=== PATIENT | female | born 1970 | race Caucasian/White ===

== ENCOUNTER 2025-07-04 17:20 | Emergency (ER) | payer OTHER, SELFPAY ==
[2025-07-04] VITALS (20 sets, daily range): BP systolic 132–154; BP diastolic 70–86; PULSE 67–122; TEMP 36.8; O2SAT 97–98
--- NOTE | 2025-07-04 17:42 | ED_ITS ---
HPI HPI - General Adult General Chief complaint: Neuro Symptoms/Deficit Stated complaint: FEELS FAINT/ WANTS TO PASS OUT Time Seen by Provider: 07/04/25 17:23 Source: patient Mode of arrival: Wheelchair Limitations: no limitations History of Present Illness HPI narrative: 55-year-old female presents because she feels faint, like she might pass out, and this started last night. She states she has a history of pots disease and this usually responds to IV fluids. She would also like to have her magnesium and potassium and sodium checked. She does not complain of palpitations or fever or abdominal pain. Related Data Home Medications ?Medication ?Instructions ?Recorded ?Confirmed alendronate 70 mg tablet mg PO 07/04/25 atogepant 60 mg tablet (Qulipta) mg 07/04/25 baclofen 20 mg tablet mg 07/04/25 cetirizine 10 mg tablet (Allergy mg 07/04/25 Relief (cetirizine)) cholecalciferol (vitamin D3) 50 07/04/25 mcg (2,000 unit) tablet ciprofloxacin HCl 500 mg tablet mg 07/04/25 fluticasone propionate 50 intranasal 07/04/25 mcg/actuation nasal spray,suspension ibuprofen 800 mg tablet mg 07/04/25 levothyroxine 75 mcg tablet mcg 07/04/25 liothyronine 5 mcg tablet mcg 07/04/25 lisinopril 5 mg tablet mg 07/04/25 magnesium oxide 400 mg (241.3 mg mg 07/04/25 magnesium) tablet meclizine 25 mg tablet mg 07/04/25 methylphenidate HCl 20 mg biphasic mg PO 07/04/25 50-50 capsule,extended release montelukast 10 mg tablet mg 07/04/25 omeprazole 10 mg capsule,delayed mg 07/04/25 release ondansetron 4 mg disintegrating mg 07/04/25 tablet oxcarbazepine 600 mg tablet mg 07/04/25 potassium chloride 20 mEq meq PO 07/04/25 tablet,extended release rizatriptan 10 mg tablet mg 07/04/25 sodium chloride 1,000 mg soluble mg 07/04/25 tablet Review of Systems ROS Narrative A ten point review of systems is negative except as noted above. Exam Narrative Exam Narrative: Nurses note and vital signs reviewed and patient is not hypoxic. General: The patient appears well and in no apparent distress. Patient is resting comfortably on cart. Skin: Warm, dry, no pallor noted. There is no rash noted. Head: Normocephalic, atraumatic Eye: Normal conjunctiva, no drainage Ears, Nose, Mouth, and Throat: oral mucosa is moist. Nares patent. Cardiovascular: Regular Rate and Rhythm Respiratory: Patient is in no distress, no accessory muscle use, lungs are clear to auscultation, no wheezing, rales or rhonchi Back: non-tender GI: Soft and nontender Musculoskeletal: The patient has no evidence of calf tenderness, no pitting edema, symmetrical pulses noted bilaterally Neurological: A&O, normal speech Psychiatric: Cooperative Constitutional Vital Signs, click to edit/add: Last Vital Signs Temp 98.3 F 07/04/25 17:28 Pulse 101 H 07/04/25 17:28 Resp 18 07/04/25 17:28 BP 154/86 H 07/04/25 17:28 Pulse Ox 97 07/04/25 17:28 O2 Del Method Room Air 07/04/25 17:28 Course Vital Signs Vital signs: Vital Signs Temperature 98.3 F 07/04/25 17:28 Pulse Rate 101 H 07/04/25 17:28 Respiratory Rate 18 07/04/25 17:28 Blood Pressure 154/86 H 07/04/25 17:28 Pulse Oximetry 97 07/04/25 17:28 Oxygen Delivery Method Room Air 07/04/25 17:28 Temperature 98.3 F 07/04/25 17:28 Pulse Rate 101 H 07/04/25 17:28 Respiratory Rate 18 07/04/25 17:28 Blood Pressure 154/86 H 07/04/25 17:28 Pulse Oximetry 97 07/04/25 17:28 Oxygen Delivery Method Room Air 07/04/25 17:28 Medical Decision Making MDM Narrative Medical decision making narrative: IV fluids are ordered and the patient is signed out to Dr. Ridley at change of shift. Differential Diagnosis Differential Diagnosis: Hypovolemia, electrolyte imbalance, acute kidney injury Lab Data Lab results reviewed: Yes I reviewed the patient's lab results Labs: Lab Results 07/04/25 Range/Units 18:44 WBC 9.5 (4.0-11.0) 10^3/uL RBC 4.47 (4.20-5.40) 10^6/uL Hgb 14.6 (12.0-16.0) g/dL Hct 41.6 (36.0-48.0) % MCV 93.1 (81.0-99.0) fL MCH 32.7 (26.7-34.0) pg MCHC 35.1 (29.9-35.2) g/dL RDW 11.9 (11.0-15.0) % Plt Count 267 (150-450) 10^3/uL MPV 10.6 (9.5-13.5) fL Neut % (Auto) 56.9 (43.0-75.0) % Lymph % (Auto) 31.1 (20.5-60.0) % [place] % (Auto) 10.1 (1.7-12.0) % Eos % (Auto) 0.9 (0.9-7.0) % Baso % (Auto) 0.7 (0.2-2.0) % Neut # (Auto) 5.4 (1.4-6.5) 10^3/uL Lymph # (Auto) 3.0 (1.2-3.8) 10^3/uL [place] # (Auto) 1.0 H (0.3-0.8) 10^3/uL Eos # (Auto) 0.1 (0.0-0.7) 10^3/uL Baso # (Auto) 0.1 (0.0-0.1) 10^3/uL Abs Immat Gran (auto) 0.03 (0.00-0.03) 10^3/uL Imm/Tot Granulo (auto) 0.3 (0.0-0.5) % ECG Data Attestation: I personally reviewed and interpreted this ECG as follows: (EKG on my interpretation shows sinus rhythm with rate of 84 no acute change) Discharge Plan Discharge Patient Disposition: Still a Patient
--- NOTE | 2025-07-04 17:42 | ECG_ITS ---
[facility] Test Date: 2025-07-04 Pat Name: Tori Soriano Department: Room: - Gender: Female Social Media Specialist: : 1970 Requested By: 1030 Order Number: [id number] Reading MD: LAWSON RIGGS M.D. Measurements Intervals [place] Rate: 84 P: 71 SC: 120 QRS: 18 QRSD: 82 T: 76 QT: 358 QTc: 399 Interpretive Statements 1100 Sinus rhythm 2420 RSR (QR) in lead V1/V2, consistent with right ventricular conduction delay 3413 Cannot rule out septal myocardial infarction, probably old 9150 abnormal ECG Compared to ECG 01/06/2020 19:16:32 Myocardial infarct finding now present Electronically Signed On 07-04-2025 22:05:37 EDT by LAWSON RIGGS M.D.
--- NOTE | 2025-07-04 17:50 | PC.NURSE ---
Pt presents to ER via wheelchair brought back by her Pt states her chief complaint is weakness secondary to POTS and dysautonomia Pt talks in a flight of words with sentences that don't quite make sense and keeps jumping back to the idea that she is Gods biological granddaughter and the chosen one Pt states she keeps getting lightheaded when walking too much and has to take frequent breaks pt then states she was recently evaluated in [place] and she does not want to be evaluated for her mental health - only for the physical symptoms she is having Pt repeatedly states all her family says shes gone crazy and so did the doctors there Pt again begins to ramble about her previous life and asks her when the day was that she woke knowing she was the chosen one Doctor Delilah enters and patient explains her dysautonomia issues to him and is happy to hear we will be doing an IV and labwork and giving her some fluids After leaving the room patients meets this nurse in the hallway and states concern for her mental health He states he doesn't know what happened, she has no psych diagnosis He wants her to be evaluated and they have not been previously able to get help for her because she doesn't want to hurt herself or anyone else At this time patient bolts through the door in the hallway and states she would prefer any medical discussion be had with her because she knows more about herself and her medical issues than anyone else Pts again comes to the nurses station and states he wants the doctor to do something for her mental health Her pcp noted hallucinations in her chart one month ago per but no treatment or diagnosis digging has been done. This all relayed to Dr. Mazariegos
--- NOTE | 2025-07-04 18:16 | PC.NURSE ---
PT STATES IS GODS CHOSEN CHILD AND IS READY FOR THE AWAKENING . PT STATES SHES IS WITH TWINS WHICH IS IMMACULATE CONCEPTION BECAUSE SHE HAS HAD A HYSTERECTOMY. PT STATES NEED THE TV REMOTE SO SHE CAN WATCH THE NEWS AND FIGURE OUT WHAT NEEDS TO BE DONE YET AND TO SEE ALL OF HER CHILDREN . IT IS UNCLEAR AT THIS TIME WHY SHE IS IN THE HOSPITAL OR HER CHIEF COMPLAINT.
--- OUTSIDE RECORDS SUMMARY | 2025-07-04 18:19 | XMS_ITS | Encounter Summary ---
Author Organization [facility] Address [address] [place] [address] Care Team Providers Care Bed Worker Name Role Phone Albino Judd MD Primary Care Provider [phone] Albino Judd MD Primary Care Provider [phone] Marjorie Wiley RN Unavailable [phone] Albino Judd MD Unavailable Cristina Walter Unavailable Encounter Details Date Type Department Care Team (Late st Contact Info) Description 04/13/2024 Orders Only [facility] [address] [place] [address] Albino Judd MD [address] [place] [address] Essential hypertension, benign Social History Tobacco Use Types Packs/Day Years Used Date Smoking Tobacco: Every Day Alcohol Use Standard Drinks/Week Comments Yes 0 (1 standard drink = 0.6 oz pur e alcohol) Occasional alcohol Comments Unknown Sex and Gender Information Value Date Recorded Sex Assigned at Not on file Legal Sex Female 8:23 PM EDT Gender Identity Not on file Sexual Orientation Not on file documented as of this encounter Plan of Treatment Upcoming Encounters Date Type Department Care Team (Late st Contact Info) Description 07/10/2025 1:00 PM EDT Office Visit [facility] [address] [place], [place] [address] [address] Alice Reid PA [address] [place] [address] [place], [place] [id number] 07/31/2025 2:30 PM EDT Office Visit [facility] [address] [place] [address] Albino Judd MD [address] [place] [address] documented as of this encounter Visit Diagnoses Diagnosis Essential hypertension, benign Essential hypertension, benign documented in this encounter Care Teams Bed Worker Relationship Specialty Start Date End Date Albino Judd MD PCP - General Family Medicine 06/25/23 06/29/24 Albino Judd MD [address] [place] [address] PCP - General Family Medicine 06/30/24 Albino Judd MD [address] [place] [address] PCP - Medical [place] [employer] 08/29/24 11/28/99 Marjorie Wiley, LUCY [address] [place] [address] Registered Nurse Family Medicine 09/18/24 Cristina Walter PA [address] [place] [address] Physician Shipping Inspector Neurology 03/13/25 documented as of this encounter
--- OUTSIDE RECORDS SUMMARY | 2025-07-04 18:19 | XMS_ITS ---
Author Organization [facility] Address [address] [place] [address] Care Team Providers Care Rn Mental Health Name Role Phone Albino Judd MD Primary Care Provider [phone] Marjorie Wiley RN Unavailable [phone] Albino Judd MD Unavailable Cristina Walter Unavailable Chronic Care Management (CCM) Status:Enrolled (Active) Start date:09/18/2024 Enrollment date:09/18/2024 Enrollment reason:Identified as hospital admit Overview Please assess for Care Management needs. 09/18/24, 4:13 PM - Marjorie Wiley RN- Patient gives verbal consent to be enrolled in CCM Program and understands there could be a bill for this service. Pt risk score 5, ccm bill no, med mutual Case Team Name Relationship Phone Marjorie Wiley RN(Responsible Staff) Registered Nurse [phone] Continued Care and Services Coordination
--- OUTSIDE RECORDS SUMMARY | 2025-07-04 18:19 | XMS_ITS | Encounter Summary ---
Author Organization [facility] Address [facility] [place] [address] Care Team Providers Care Account Liaison Name Role Phone Albino Judd MD Primary Care Provider [phone] Source Comments In the event this information is protected by the Federal Confidentiality of Alcohol and Drug AbusePatient Records regulations: The Federal rules restrict any use of the information to criminally investigate or prosecute any alcohol or drug abuse patient.[facility] Encounter Details Date Type Department Care Team (Late st Contact Info) Description 08/07/2014 Abstract Urology [address] [place] [address] Irais Gonzalez, VENEER PRODUCTION MACHINE OPERATOR.DERMATOLOGY SALES REPRESENTATIVE [address] [place] [address] Social History Tobacco Use Types Packs/Day Years Used Date Smoking Tobacco: Every Day Cigarettes 1 30 Smokeless Tobacco: Never Alcohol Use Standard Drinks/Week Comments Yes 0 (1 standard drink = 0.6 oz pur e alcohol) rare Comments No Sex and Gender Information Value Date Recorded Sex Assigned at Not on file Legal Sex Female 10:00 AM EDT Gender Identity Not on file Sexual Orientation Not on file documented as of this encounter Functional Status * Are you deaf or do you have serious difficulty hearing? Answer Date of Assessment Author No 04/12/2014 10:22 AM Harper Roper RN * Are you blind or do you have serious difficulty seeing, even when wearing glasses? Answer Date of Assessment Author No 04/12/2014 10:22 AM Harper Roper RN * Do you have serious difficulty walking or climbing stairs? Answer Date of Assessment Author No 04/12/2014 10:22 AM Harper Roper RN * Do you have difficulty dressing or bathing? Answer Date of Assessment Author No 04/12/2014 10:22 AM Harper Roper RN * Because of a physical, mental, or emotional condition, do you have difficulty doing errands alone such as visiting a doctor's office or shopping? Answer Date of Assessment Author No 04/12/2014 10:22 AM Harper Roper RN documented as of this encounter Mental Status * Because of a physical, mental, or emotional condition, do you have serious difficulty concentrating, remembering, or making decisions? Answer Entry Date Author No 04/12/2014 10:22 AM Harper Roper RN documented in this encounter Plan of Treatment Not on file documented as of this encounter Visit Diagnoses Not on filedocumented in this encounter Care Teams Account Liaison Relationship Specialty Start Date End Date Albino Judd MD PCP - General Internal Medicine 09/27/13 documented as of this encounter
--- OUTSIDE RECORDS SUMMARY | 2025-07-04 18:19 | XMS_ITS | Encounter Summary ---
Author Organization [facility] Address [id number] [address] [place] [address] Care Team Providers Care Cost Estimator Name Role Phone Albino Judd MD Primary Care Provider [phone] Reason for Visit * Reason Onset Date Comments Referral/Hospital 03/25/2021 Encounter Details Date Type Department Care Team (Late st Contact Info) Description 03/25/2021 Telephone [facility] [address] [place] [address] Abimbola Mitchell Referral/Hospital Social History Tobacco Use Types Packs/Day Years Used Date Smoking Tobacco: Every Day Cigarettes Vaping/E-cigarettes Smokeless Tobacco: Never Comments:Currently uses E Ci garttes Alcohol Use Standard Drinks/Week Comments Not Currently 0 (1 standard drink = 0.6 oz pur e alcohol) rarely Childcare Answer Date Recorded Childcare Unknown 05/10/2019 Employment Answer Date Recorded Employment Unknown 05/10/2019 Purpose - Life Answer Date Recorded Purpose and direction in life Unknown Comments No Sex and Gender Information Value Date Recorded Sex Assigned at Not on file Legal Sex Female 11:29 AM EDT Gender Identity Female 06/26/2021 11:02 PM EDT Sexual Orientation Straight 06/26/2021 11 :02 PM EDT COVID-19 Exposure Response Date Recorded In the last month, have you been in contact with someone who was confirmed or suspected to have Coronavirus / COVID-19? No / Unsure 03/24/2021 3:27 PM EDT documented as of this encounter Miscellaneous Notes * Telephone Encounter - Abimbola Stephen - 03/25/2021 11:47 AM EDT Patient called to schedule appointment from referral per [facility] visit. Referral dx: dizziness. Impressions: Abnormal VNG. All positional, positioning and caloric subtests were within normal limits. Pursuit and OPK suggest oculomotor non labyrinthine involvement. ?Recommendations: 1) Follow up with Preethi PULIDO for further review and recommendations. 2) A consultation with neuro opthalmology and/or OT for oculo motor training may be beneficial. Please advise on scheduling with Dr. Ramos or different provider per dizziness dx. * Telephone Encounter - Eren Ramos MD - 03/25/2021 11:47 AM EDT [facility] - Dr. Szymanski or Dr. Jackson * Telephone Encounter - Abimbola Mitchell - 03/25/2021 11:47 AM EDT Transition Mgr Rn called patient to schedule with Dr. Szymanski or Dr. Jackson, patient states Preethi PULIDO, ENT specialist who works with Dr. Ag, insists the patient be seen by neuro-opthamology, per patient, Preethi states patient does not have a vestibular problem. Preethi PULIDO office notes are in Epic. Please advise. * Telephone Encounter - Eren Ramos MD - 03/25/2021 11:47 AM EDT Please schedule as routine with me. * Telephone Encounter - Abimbola Mitchell - 03/25/2021 11:47 AM EDT Patient scheduled 05/[address] Ramos. documented in this encounter Plan of Treatment Not on file documented as of this encounter Visit Diagnoses Not on filedocumented in this encounter Additional Health Concerns Infection Onset Date Last Indicated Resolved Time COVID-19 Rule-Out 10/10/2022 10/10/2022 10/10/2022 5:46 PM EST documented as of this encounter Care Teams Cost Estimator Relationship Specialty Start Date End Date Albino Judd MD PCP - General 04/05/14 05/03/25 documented as of this encounter
--- OUTSIDE RECORDS SUMMARY | 2025-07-04 18:19 | XMS_ITS | Encounter Summary ---
Author Organization [facility] Address [address] [place] [address] Care Team Providers Care Freelance Recruiter Name Role Phone Albino Judd MD Primary Care Provider [phone] Marjorie Wiley RN Unavailable [phone] Albino Judd MD Unavailable Cristina Walter Unavailable Encounter Details Date Type Department Care Team (Late st Contact Info) Description 08/28/2024 Orders Only [facility] [address] [place] [address] Albino Judd MD [address] [place] [address] Social History Tobacco Use Types Packs/Day Years Used Date Smoking Tobacco: Every Day Cigarettes Smokeless Tobacco: Never Alcohol Use Standard Drinks/Week Comments Yes 0 (1 standard drink = 0.6 oz pur e alcohol) Occasional alcohol B1300 Health Literacy Answer Date Recor ded How often do you need to hav e someone help you when you read instructions, pamphlets, or other written material from your doctor or pharmacy? Never 06/29/2024 Social Connection and Isolat ion Panel [NHANES] Answer Date Recorded In a typical week, how many times do you talk on the phone with family, friends, or neighbors? More than three times a week 06/29/2024 How often do you get togethe r with friends or relatives? Twice a week 06/29/2024 How often do you attend [facility] or holiness services? 1 to 4 times per year 06/29/2024 Do you belong to any clubs o r organizations such as roman catholic groups, unions, fraternal or athletic groups, or school groups? No 06/29/2024 How often do you attend meet ings of the clubs or organizations you belong to? Never 06/29/2024 Are you , , di vorced, , never , or living with a partner? 06/29/2024 AUDIT-C Answer Date Recorded Q1: How often do you have a drink containing alc ohol? Monthly or less 06/29/2024 Q2: How many drinks containi ng alcohol do you have on a typical day when you are drinking? 1 or 2 06/29/2024 Q3: How often do you have si x or more drinks on one occasion? Never 06/29/2024 Overall Financial Resource Strain (CARDIA) Answe r Date Recorded How hard is it for you to pa y for the very basics like food, housing, medical care, and heating? Somewhat hard 06/29/2024 [facility] - Occupational Stress Questionnaire Answer Date Recorded Do you feel stress - tense, restless, nervous, or anxious, or unable to sleep at night because your mind is troubled all the time - these days? To some extent 06/29/2024 Exercise Vital Sign Answer Date Recorde d On average, how many days pe r week do you engage in moderate to strenuous exercise (like a brisk walk)? 0 days On average, how many minutes do you engage in exercise at this level? Patient declined 06/29/2024 Hunger Vital Sign Answer Date Recorded Within the past 12 months, y ou worried that your food would run out before you got the money to buy more. Never true 06/29/20 24 Within the past 12 months, t he food you bought just didn't last and you didn't have money to get more. Never true 06/29/2024 PRAPARE - Transportation Answer Date Re corded In the past 12 months, has l ack of transportation kept you from medical appointments or from getting medications? No 11/2023 In the past 12 months, has l ack of transportation kept you from meetings, work, or from getting things needed for daily living? No 06/29/2024 Housing Stability Vital Sign Answer Shad e Recorded In the last 12 months, was t here a time when you were not able to pay the mortgage or rent on time? Yes 06/29/2024 In the past 12 months, how m any times have you moved where you were living? 0 06/29/2024 At any time in the past 12 m ont, were you homeless or living in a intermediate (including now)? No 06/29/2024 Comments Unknown Sex and Gender Information Value Date Recorded Sex Assigned at Not on file Legal Sex Female 8:23 PM EDT Gender Identity Not on file Sexual Orientation Not on file documented as of this encounter Plan of Treatment Upcoming Encounters Date Type Department Care Team (Late st Contact Info) Description 07/10/2025 1:00 PM EDT Office Visit [facility] [address] [place] [address] Alice Reid PA [address] [place], [place] [id number] 07/31/2025 2:30 PM EDT Office Visit [facility] [address] [place] [phone] Albino Judd MD [address] [place] [address] documented as of this encounter Visit Diagnoses Not on filedocumented in this encounter Care Teams Freelance Recruiter Relationship Specialty Start Date End Date Albino Judd MD [address] [place] [address] PCP - General Family Medicine 06/30/24 Albino Judd MD [address] [place] [address] PCP - Medical [place] [employer] 08/29/24 11/28/99 Marjorie Wiley, RN [address] [place] [address] Registered Nurse Family Medicine 09/18/24 Cristina Walter PA [address] [place] [address] Physician Color Maker Neurology 03/13/25 documented as of this encounter
--- OUTSIDE RECORDS SUMMARY | 2025-07-04 18:19 | XMS_ITS | Clinical Summary ---
Author Organization [facility] Address [address] [place] [address] Care Team Providers Care Natural Resource Specialist Name Role Phone Albino Judd MD Primary Care Provider [phone] Marjorie Wiley RN Unavailable [phone] Albino Judd MD Unavailable Cristina Walter Unavailable Allergies Active Allergy Reactions Criticality Noted Date Comments Amitriptyline Other,Unknown 01/23/2014 Raises liver enzymes, high blood pressure, orthostatic intolerance High blood pressure Carisoprodol Other 06/30/2024 Codeine Other,Unknown 04/15/2017 Genetic intolerance- high blood levels Does not metabolize well Diazepam Swelling,Unknown 01/23/2014 Swelling of eyes eyes Gabapentin Other,Rash,Unknown Low 05/17/2013 White sores in mouth Sores in mouth Ketorolac Tromethamine Unknown 06/30/2024 Lorazepam Swelling,Unknown 04/15/2017 Metoclopramide Other 04/15/2017 Sleepwalking Made her sleep walk Morphine Other,Unknown 04/15/2017 Genetic intolerance- high levels in blood Does not metabolize well Somatorelin Other High 04/15/2017 Very high genetic intolerance- will produce high blood levels unknown Topiramate Itching,Other,Swell ing,Unknown Medium 05/17/2013 Arms went numb eyes Varenicline Other,Unknown Medium 04/07/2018 Sleepwalking Riboflavin 05/29/2025 Zonisamide Swelling,Unknown 01/23/2014 Swelling of eyes Medications ibuprofen 800 MG tabletIndications :Small fiber neuropathy Take 1 tablet (800 mg) by mouth in the morning and 1 tablet (800 mg) in the evening and 1 tablet (800 mg) before bedtime. 90 tablet 3 024 Active butalbital-acetam inophen-caffeine 50-325-40 MG tabletIndications :Chronic migraine without aura without status migrainosus, not intractable Take 1 tablet by mouth 4 (four) times a day as needed for headaches 60 tablet 2 024 Active OXcarbazepine (Trileptal) 300 MG tabletIndications :Migraine without status migrainosus, not intractable, unspecified migraine type Take 1 tablet (300 mg) by mouth in the morning and 1 tablet (300 mg) before bedtime. 30 tablet 2 Active albuterol HFA 90 mcg/act inhalerIndication s:Shortness of breath Inhale 2 puffs every 4 (four) hours if needed for wheezing or shortness of breath 18 g 3 Active omeprazole (PriLOSEC) [address] capsuleIndication s:GERD without esophagitis Take 1 capsule (10 mg) by mouth in the morning and 1 capsule (10 mg) in the evening. Take before meals. 60 capsule 11 Active ondansetron ODT (Zofran-ODT) 4 MG disintegrating tabletIndications :Nausea Take 1 tablet (4 mg) by mouth every 8 (eight) hours if needed for nausea or vomiting 30 tablet 5 Active cholecalciferol (Vitamin D-3) 50 MCG (2000 UT) tabletIndications :Vitamin D deficiency Take 1 tablet (50 mcg) by mouth Daily 30 tablet 11 Active potassium chloride CR (K-Tab) 20 MEQ ER tabletIndications :Hyponatremia Take 1 tablet (20 mEq) by mouth Daily Do not crush, chew, or split. 30 tablet 11 Active sodium chloride 1 g tabletIndications :Hyponatremia TAKE TWO (2) TABLETS BY MOUTH THREE TIMES PER DAY 180 tablet 10 Active alendronate (Fosamax) 70 MG tabletIndications :Age-related osteoporosis without current pathological fracture TAKE 1 TABLET BY MOUTH ONCE A WEEK 4 tablet 10 Active liothyronine (Cytomel) 5 MCG tabletIndications :Hypothyroidism, adult TAKE 1 TABLET BY MOUTH DAILY ON AN EMPTY STOMACH 30 tablet 10 025 Active magnesium oxide (Mag-Ox) 400 MG tabletIndications :Hypomagnesemia Take 1 tablet (400 mg) by mouth in the morning and 1 tablet (400 mg) before bedtime. 60 tablet 5 025 Active oxybutynin XL (Ditropan-XL) 10 MG 24 hr tabletIndications :Bladder spasms Take 1 tablet (10 mg) by mouth Daily Do not crush, chew, or split. 30 tablet 3 025 Active meclizine (Antivert) 25 MG tabletIndications :Vertigo TAKE 1 TABLET BY MOUTH FOUR TIMES DAILY 120 tablet 10 025 Active lisinopril 5 MG tabletIndications :Essential hypertension, benign TAKE 1 TABLET BY MOUTH DAILY 30 tablet 10 025 Active RIBOFLAVIN PO Take 200 mg by mouth at noon and 200 mg in the evening. Active rizatriptan (Maxalt) 10 MG tabletIndications :Migraine without status migrainosus, not intractable, unspecified migraine type Take 1 tablet (10 mg) by mouth 1 (one) time if needed for migraine for up to 90 doses May repeat in 2 hours if unresolved. Do not exceed 30 mg in 24 hours. 27 tablet 2 025 Active OXcarbazepine (Trileptal) 600 MG tabletIndications :Migraine without status migrainosus, not intractable, unspecified migraine type Take 1 tablet (600 mg) by mouth in the morning and 1 tablet (600 mg) before bedtime. 180 tablet 2 025 Active milnacipran (Savella) 12.5 MG tabletIndications :Small fiber neuropathy,Fibrom yalgia Take 1 tablet (12.5 mg) by mouth in the morning and 1 tablet (12.5 mg) before bedtime. 60 tablet 025 Active doxepin (SINEquan) 25 MG capsuleIndication s:Primary insomnia Take 1 capsule (25 mg) by mouth at bedtime 30 capsule 5 025 Active baclofen (Lioresal) 20 MG tabletIndications :Cervical spinal stenosis Take 1 tablet (20 mg) by mouth 3 (three) times a day as needed for muscle spasms 90 tablet 3 06/06/2 025 Active Lidocaine 4 % patch Place 1 patch on the skin 1 (one) time each day at the same time Active methylPREDNISolon e (Medrol Dospak) 4 MG tablets follow package directions Active methylphenidate LA (Ritalin LA) 20 MG 24 hr capsuleIndication s:ADD (attention deficit disorder) without hyperactivity Take 1 capsule (20 mg) by mouth Daily Do not crush or chew. 30 capsule Active levothyroxine (Synthroid, Levoxyl) 75 MCG tabletIndications :Hypothyroidism, adult TAKE 1 TABLET BY MOUTH EVERY MORNING ON AN EMPTY STOMACH 30 tablet Active fluticasone (Flonase) 50 MCG/ACT nasal sprayIndications: Gastroesophageal reflux disease without esophagitis Administer 1 spray into each nostril Daily Shake gently. Before first use, prime pump. After use, clean tip and replace cap. 16 g Active cetirizine (Allergy Relief Cetirizine) 10 MG tabletIndications :Gastroesophageal reflux disease without esophagitis Take 1 tablet (10 mg) by mouth Daily 30 tablet Active montelukast (Singulair) 10 MG tabletIndications :Gastroesophageal reflux disease without esophagitis Take 1 tablet (10 mg) by mouth Daily 30 tablet Active levothyroxine (Synthroid, Levoxyl) 75 MCG tablet Take 75 mcg by mouth Daily 2024 Discontinued montelukast (Singulair) 10 MG tabletIndications :Gastroesophageal reflux disease without esophagitis TAKE 1 TABLET BY MOUTH DAILY 30 tablet 2024 Discontinued(R eorder) fluticasone (Flonase) 50 MCG/ACT nasal sprayIndications: Gastroesophageal reflux disease without esophagitis INSTILL ONE (1) SPRAY IN EACH NOSTRIL DAILY NEEDED FOR RHINITIS 16 g 2024 Discontinued(R eorder) Allergy Relief Cetirizine 10 MG tabletIndications :Gastroesophageal reflux disease without esophagitis TAKE 1 TABLET BY MOUTH DAILY 30 tablet 024 2024 Discontinued(R eorder) Atogepant (Qulipta) 60 MG tabletIndications :Migraine without status migrainosus, not intractable, unspecified migraine type Take 1 tablet by mouth Daily 90 tablet 2 025 2024 predniSONE (Deltasone) 50 MG tabletIndications :Chronic bilateral low back pain with left-sided sciatica Take 1 tablet (50 mg) by mouth Daily for 6 days 6 tablet 025 2024 Active Problems Problem Noted Date Diagnosed Date Delusion 05/29/2025 Assessment & Plan (05/29/2025 4:14 PM EDT): Recent delusions and reports talking to ghosts and angels. Continue counseling. Bladder spasms 12/05/2024 Assessment & Plan (12/05/2024 2:41 PM EST): Resume oxybutynin. Shortness of breath 08/31/2024 Hypokalemia 08/24/2024 Insomnia, unspecified 08/24/2024 Anxiety disorder 08/24/2024 Disease of digestive system 08/24/2024 Migraine without aura and wi thout status migrainosus, not intractable 08/24/2024 Overview (08/24/2024): The patient has history of headaches that transition into migraines. She states that her headaches have increased and she was having 2 migraines per week despite Trileptal dosing which she uses for neuropathic pain but this can also prevent headaches. She has failed Topamax in the past as well. She did not have benefit with Ajovy, relpax, imitrex, nurtec, or ubrelvy. She has had improvement in migraines since her neck surgery. She has benefit with maxalt and her PCP gave her fioricet to try. She has been counseled on rebound effect with fioricet. Headaches have increased with weather fluctuations. DDD (degenerative disc disease), cervical 2023 ADD (attention deficit disorder) without hyperac tivity 06/30/2024 Assessment & Plan (05/29/2025 4:13 PM EDT): Symptoms controlled with ritalin. Assessment & Plan (10/10/2024 2:02 PM EST): Symptoms worse and try ritalin. Arthralgia of hand 06/30/2024 Essential hypertension, benign 06/30/2024 Assessment & Plan (10/10/2024 2:02 PM EST): BP elevated but often low. Decrease lisinopril to 5 mg and monitor PRN. If elevates try 5 BID. Assessment & Plan (09/19/2024 4:03 PM EDT): BP elevated but often low. Decrease lisinopril to 5 mg and monitor PRN. If elevates try 5 BID. Lower extremity edema 06/30/2024 Cervical spinal stenosis 06/30/2024 Herpes labialis 06/30/2024 Hypomagnesemia 06/30/2024 Hyponatremia 06/30/2024 Assessment & Plan (09/19/2024 4:03 PM EDT): Low sodium likely due to trileptal but doesn't want to stop due to medication helps small fiber neuropathy. Increase salt intake and monitor. Hypothyroidism, adult 06/30/2024 Irritable bowel syndrome with diarrhea Obstructive sleep apnea 06/30/2024 Overview (08/24/2024): She was unable to tolerate treatment which is likely also influencing her memory. She did not tolerate mask due to it causing facial swelling. Osteoporosis 06/30/2024 POTS (postural orthostatic tachycardia syndrome) 06/30/2024 Assessment & Plan (10/10/2024 2:03 PM EST): Frequent symptoms and follow with cardiology. Assessment & Plan (09/19/2024 4:04 PM EDT): Frequent symptoms and decrease lisinopril. Follow with cardiology. Allergic rhinitis due to pollen 06/30/2024 Vertigo 06/30/2024 Assessment & Plan (10/10/2024 2:04 PM EST): Continued symptoms and follow with specialists. Assessment & Plan (06/30/2024 1:09 PM EDT): Continued symptoms and start vestibular rehab. Vitamin D deficiency 06/30/2024 Annual physical exam 06/30/2024 Assessment & Plan (06/30/2024 1:08 PM EDT): Due for labs. Discussed proper diet and regular aerobic exercise. Need aerobic exercise 5-6 days a week for 30 minutes at a time. Smaller portions and limit total calories. Colonoscopy every 10 years. Tetanus every 10 years. Advised not to smoke. Discussed daily Aspirin therapy. Small fiber neuropathy 06/30/2024 Assessment & Plan (10/10/2024 2:03 PM EST): Pain worse and increase doxepin. Use percocet PRN. Discussed risks and benefits of opiate therapy. Warned medication is narcotic and risk of addiction. OARRS reviewed. Assessment & Plan (06/30/2024 1:09 PM EDT): Pain stable and use percocet PRN. 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 Mononeuritis Sleep apnea Disturbance of salivary secretion Depression Chronic bilateral low back pain with left-sided sciatica Assessment & Plan (05/29/2025 4:13 PM EDT): Increased pain with radicular symptoms and treat with prednisone. Use percocet PRN. Hydronephrosis Hyperreflexia Neuropathy Overview (08/24/2024): Positive nerve biopsy to suggest neuropathy. EMG was normal and QSART in 2015. She had normal brain MRI 09/[address] 03/2018 revealed mild to moderate narrowing. She does have history of Niki-Danlos Syndrome which can affect the spine. She has been better off of Lyrica. Overall symptoms worse with cold weather. She is no longer using medical marijuana. Her symptoms have increased due to weather fluctuations. Memory loss Overview (08/24/2024): Memory loss consistent with pseudodementia that has lessened. She had the neuropyschological testing which suggested memory loss was due to severe depression at the time. She still has troubles remembering short term events or her plans for the day. She is using a calendar and writing lists. This continues. Pseudodementia Disturbance of skin sensation Nondependent abuse of drugs Overview (08/24/2024): tobacco use disorder Resolved Problems Problem Noted Date Diagnosed Date Resolved Date Acute non-recurrent pansinusitis 12/05/2024 05/29/2025 Assessment & Plan (12/05/2024 2:35 PM EST): Take antibiotics for 7 days. Use prednisone for inflammation. Use sudafed or other decongestants as needed. Use Robitussin or Robitussin-DM for cough. Can use afrin for congestion but no longer than 3 days. Can use Mucinex to bring up phlegm. Use Motrin or Tylenol as needed for fever, aches, or pains. Increase fluid intake and rest. Should improve over next 5-7 days and if no better or worse call for re- evaluation. Acute UTI 12/05/2024 05/29/2025 Assessment & Plan (12/05/2024 2:41 PM EST): Signs of UTI and treat. Use oxybutynin PRN. If no improvement will need to see urology. Chronic migraine without aura 06/30/2024 10/10/2024 Assessment & Plan (06/30/2024 1:09 PM EDT): CHRISTINE stable and use fioricet PRN. Late effect of poisoning due to drug, medicinal or biological substance 2023 Alteration of awareness 11/2024 Overview (08/24/2024): Had ER visit in the past from falling down the stairs. She did received Narcan while she was there and Dr. Judd decreased her Fentynal patches. CT scan of the brain was normal. CT scan of the cervical spine showed mild spondylosis in the lower cervical spine. No recurrence. Encounters Date Type Department Care Team Description 06/28/2025 Refill [facility] [address] [place] [address] Albino Judd MD Gastroesophageal reflux disease without esophagitis 06/27/2025 Refill [facility] [address] [place] [address] Anali Lennon MD Hypothyroidism, adult 05/29/2025 3:15 PM EDT Office Visit [facility] [address] [place] [address] Albino Judd MD Delusion (HCC) (Primary Dx); ADD (attention deficit disorder) without hyperactivity; Chronic bilateral low back pain with left-sided sciatica 05/29/2025 Bamboo flowsheet [facility] [address] [place] [address] Albino Judd MD 05/25/2025 [facility] [id number] [place] [address] Marjorie Wiley RN 05/18/2025 Refill [facility] [address] [place] [address] Albino Judd MD 05/09/2025 Patient Outreach [facility] [address] [place] [address] Josy Carney MA 05/08/2025 Telephone [facility] [address] [place] [address] Albino Judd MD 05/08/2025 Patient Outreach [facility] [address] [place] [address] Josy Carney MA 05/07/2025 Telephone [facility] [address] [place] [address] Albino Judd MD Referral 05/04/2025 Telephone [facility] [address] [place] [address] Albino Judd MD 04/17/2025 4:00 PM EDT Evaluation [facility] [address] [place] [address] Rigo Delgado, PT Cervical spinal stenosis (Primary Dx); Vertigo; Small fiber neuropathy; POTS (postural orthostatic tachycardia syndrome) 04/17/2025 Plan of Care Documentation [address] [address] 04/17/2025 Bamboo flowsheet [address] [address] Rigo Delgado, PT 04/17/2025 Travel 04/06/2025 Patient Outreach [facility] [address] [place] [address] Marjorie Wiley RN from Last 3 Months Family History Medical History Relation Name Comments COPD Father Skin cancer Father Hypertension Mother Hypertension Other Relation Name Status Comments Brother Daughter 1 Alive Daughter 2 Alive Daughter 3 Alive Daughter 4 Alive Father Alive Mother Alive Other Sister 1 Alive Sister 2 Alive Social History Tobacco Use Types Packs/Day Years Used Date Smoking Tobacco: Every Day Cigarettes Smokeless Tobacco: Never Tobacco Cessation:Ready to Q uit: Not Asked; Counseling Given: Not Answered Alcohol Use Standard Drinks/Week Comments Yes 0 [...] week 06/29/2024 How often do you attend chur ch or jehovah's witness services? 1 to 4 times per year 06/29/2024 Do you belong to any clubs o r organizations such as evangelical groups, unions, fraternal or athletic groups, or [...] medical care, and heating? Somewhat hard 06/29/2024 [facility] - Occupational Stress [...] any time in the past 12 [facility], were you homeless or living in a mcc (including now)? No 06/29/2024 Comments Unknown Sex and Gender Information Value Date Recorded Sex Assigned at Not on file Legal Sex Female 8:23 PM EDT Gender Identity Not on file Sexual Orientation Not on file Last Filed Vital Signs Vital Sign Reading Time Taken Comments Blood Pressure 99/52 05/29/2025 3:30 PM EDT Pulse 139 05/29/2025 3:30 PM EDT Temperature 36.2 C (97.1 F) 05/29/2025 3:30 PM EDT Respiratory Rate 20 05/29/2025 3:30 PM EDT Oxygen Saturation 95% 05/29/2025 3:30 PM EDT Inhaled Oxygen Concentration - - Weight 45.4 kg (100 lb) 05/29/2025 3:30 PM EDT Height 157.5 cm (5' 2 ) 05/29/2025 3:30 PM EDT Body Mass Index 18.29 05/29/2025 3:30 PM EDT Plan of Treatment Upcoming Encounters Date Type Department Care Team (Late st Contact Info) Description 07/10/2025 1:00 PM EDT Office Visit [facility] [address] [place] [address] Alice Reid PA [address] [place] [address] 07/31/2025 2:30 PM EDT Office Visit [facility] [address] [place] [address] Albino Judd MD [address] [place] [address] Health Maintenance Due Date Last Done Comments CT Colonography 1970 Colonoscopy 1970 FIT-DNA 1970 FIT 1970 FOBT 1970 Sigmoidoscopy 1970 Pap Smear 1991 Cervical Cancer Screening 02/08/2000 HPV/Cotest 02/08/2000 Influenza Vaccine (#1) 2025 12/16/2012 Mammogram 08/28/2025 08/28/2024, 07/31, 04/03/2022, Additional history exists Colorectal Cancer Screening 10/10/2025 Postponed from 1970 (Patient Refused) Goals Goal Patient Goal Type Associated Problems Recent Progress Patient-Stated? Author Help patient manage antidepressant medication Care Plan Patient on antidepressant monitoring plan No Nearhood, Roxanne Baseline PHQ-9 Care Plan Baseline PHQ-9 No Nearhood, Roxanne Procedures Procedure Name Priority Date/Time Associated Diagnosis Comments BI MAMMOGRAM SCREENING TOMOSYNTHESIS BILATERAL 08/28/2024 9:33 AM EDT from Last 3 Months or Most Recently Relevant to Health Maintenance Results * Bilateral screening mammogram with tomosynthesis (08/28/2024 9:33 AM EDT) Anatomical Region Laterality Modality Breast Bilateral Mammography 08/28/2024 9:33 AM EDT Narrative 08/28/2024 9:32 AM EDT THIS EXAM WAS PERFORMED AT [facility] TORI RAM 1970 [id number] EXAM: MAMM SCREENING BILATERAL W CAD, 08/25/2024 12:54 PM CLINICAL INDICATIONS: Screening, Visit for screening mammogram COMPARISON: Multiple prior mammograms were viewed for comparison dating back to TECHNIQUE: Bilateral digital tomosynthesis MLO and CC views of the breasts were obtained, with creation of synthetic 2D views. Computer aided detection was utilized. FINDINGS: There are scattered areas of fibroglandular density. There are no suspicious masses, calcifications, or areas of architectural distortion. IMPRESSION: No mammographic evidence of malignancy. BI-RADS: BI-RADS 1 - Negative Recommendation: Routine screening mammogram in 1 year. Finalized by Natalia Grissom MD on 08/28/2024 9:32 AM 1 b MAMM 1 YR [facility] Accredited Performing Facility: [facility] - Mammography/DEXA Imaging [address] [facility] [id number] Procedure Note Radiology, Radiologist, - 08/28/2024 [facility] [id number] EXAM: MAMM SCREENING BILATERAL W CAD, 08/25/2024 12:54 PM CLINICAL INDICATIONS: Screening, Visit for screening mammogram COMPARISON: Multiple prior mammograms were viewed for comparison datingback to TECHNIQUE: Bilateral digital tomosynthesis MLO and CC views of the breasts wereobtained, with creation of synthetic 2D views. Computer aided detectionwas utilized. FINDINGS: There are scattered areas of fibroglandular density. There are no suspicious masses, calcifications, or areas of architecturaldistortion. IMPRESSION: No mammographic evidence of malignancy. BI-RADS: BI-RADS 1 - Negative Recommendation: Routine screening mammogram in 1 year. Finalized by Natalia Grissom MD on 08/28/2024 9:32 AM 1 b MAMM 1 YR [facility] Accredited Performing Facility: [facility] - Mammography/DEXA Imaging [address] [facility] [id number] Albino Judd MD IMG BI PROCEDURES Final Result from Last 3 Months or Most Recently Relevant to Health Maintenance Additional Health Concerns Active Problems Noted Date Diagnosed Date Patient on antidepressant monitoring plan 2024 Baseline PHQ-9 03/28/2025 Insurance [employer] Care Teams Natural Resource Specialist Relationship Specialty Start Date End Date Albino Judd MD [address] [place] [address] PCP - General Family Medicine 06/30/24 Albino Judd MD [address] [place] [address] PCP - Medical [employer] 08/29/24 11/28/99 Marjorie Wiley, LUCY [address] [place] [address] Registered Nurse Family Medicine 09/18/24 Cristina Walter PA [address] [facility] [address] [place] [address] Physician Medical Information Officer Neurology 03/13/25
--- OUTSIDE RECORDS SUMMARY | 2025-07-04 18:19 | XMS_ITS | Encounter Summary ---
Author Organization [facility] Address [id number] [address] [place] [address] Care Team Providers Care Curb Machine Operator Name Role Phone Albino Judd MD Primary Care Provider [phone] Encounter Details Date Type Department Care Team (Late st Contact Info) Description 11/11/2021 Orders Only [facility] [address] [place] [address] Preethi Andrew, PA-C [address] [address] Social History Tobacco Use Types Packs/Day Years Used Date Smoking Tobacco: Every Day Cigarettes Vaping/E-cigarettes Smokeless Tobacco: Never Comments:Currently uses E Ci garttes Alcohol Use Standard Drinks/Week Comments Not Currently 0 (1 standard drink = 0.6 oz pur e alcohol) rarely PHQ-2 Answer Date Recorded Total Score 4 08/26/2021 Childcare Answer Date Recorded Childcare Unknown 05/10/2019 [...] have Coronavirus / COVID-19? No / Unsure 11/11/2021 1:32 PM EST documented as of this encounter Plan of Treatment Not on file documented as of this encounter Visit Diagnoses Not on filedocumented in this encounter Additional Health Concerns Infection Onset Date Last Indicated Resolved Time COVID-19 Rule-Out 10/10/2022 10/10/2022 10/10/2022 5:46 PM EST Assessment Noted Time PHQ-9 Depression Total Score: 4 08/26/20 21 3:02 PM EDT documented as of this encounter Care Teams Curb Machine Operator Relationship Specialty Start Date End Date Albino Judd MD PCP - General 04/05/14 05/03/25 documented as of this encounter
--- OUTSIDE RECORDS SUMMARY | 2025-07-04 18:19 | XMS_ITS | Clinical Summary ---
Author Organization [facility] Address [address] [place] [id number] Care Team Providers Care Crm Marketing Manager Name Role Phone Albino Judd MD Primary Care Provider [phone] Allergies Active Allergy Reactions Criticality Noted Date Comments Amitriptyline Other: See Comments 01/23/2014 Raises liver enzymes, high blood pressure, orthostatic intolerance Gabapentin Rash 05/17/2013 Topiramate Itching 05/17/2013 Diazepam Swelling 01/23/2014 Swelling of eyes Zonisamide Swelling 01/23/2014 Swelling of eyes Medications oxyCODONE-Acetam inophen (PERCOCET) 7.5-500 mg per tablet Take 1 tablet by mouth every 4 hours as needed. Active MULTIVIT &MINERALS/FERROU S FUM (MULTI VITAMIN ORAL) Take 1 tablet by mouth once daily. Active cetirizine (ZYRTEC) 10 mg tabletIndication s:Urinary frequency,Noctur ia,Urge incontinence,Urg ency of micturation,Stre ss incontinence, female,Right flank pain Take 10 mg by mouth once daily. Active CALCIUM CARBONATE/VITAMI N D3 (VITAMIN D-3 ORAL) Take 2,000 Int'l Units by mouth once daily. Active montelukast 10 mg tabletIndication s:UPJ (ureteropelvic junction) obstruction,Uret eral stricture,Stress incontinence, female,Nocturia Take 10 mg by mouth once daily. Active ondansetron (ZOFRAN, HYDROCHLORIDE,) 4 mg tabletIndication s:UPJ (ureteropelvic junction) obstruction,Uret eral stricture,Stress incontinence, female,Nocturia Take 4 mg by mouth every 8 hours as needed. Active alendronate (FOSAMAX) 70 mg tabletIndication s:Right flank pain,Stress incontinence, female,Nocturia, Urinary frequency,UTI (lower urinary tract infection),Urge incontinence,Hyd ronephrosis, right Take 70 mg by mouth once each week. Active Omeprazole (PRILOSEC) 40 mg capsuleIndicatio ns:Right flank pain,Stress incontinence, female,Nocturia, Urinary frequency,UTI (lower urinary tract infection),Urge incontinence,Hyd ronephrosis, right Take 40 mg by mouth twice daily. Active levothyroxine 75 mcg cap Take 75 mcg by mouth daily before breakfast. Active lisinopril (ZESTRIL) 5 mg tablet Take 5 mg by mouth once daily. Active magnesium oxide 400 mg magnesium cap Take by mouth. Active atogepant (QULIPTA) 60 mg tablet Take 60 mg by mouth once daily. Active ergocalciferol, vitamin D2, (VITAMIN D2 ORAL) Take by mouth. Active POTASSIUM CARBONATE MISC Activ e oxybutynin ER (DITROPAN XL) 10 mg 24 hr tablet Take 10 mg by mouth once daily. Active OXcarbazepine (TRILEPTAL) 600 mg tablet Take 600 mg by mouth two times a day. Active Active Problems Problem Noted Date Diagnosed Date Meatal stenosis 02/02/2014 UTI (lower urinary tract infection) 02/02/2014 Mixed incontinence urge and stress (male)(female ) 02/02/2014 Right flank pain 01/23/2014 Stress incontinence, female 01/23/2014 Urgency of micturation 01/23/2014 Urge incontinence 01/23/2014 Nocturia 01/23/2014 Urinary frequency 01/23/2014 Urethral meatal stenosis 01/23/2014 Hydronephrosis, right 05/17/2013 UPJ (ureteropelvic junction) obstruction Overview (05/17/2013): on right Ureteral stricture Overview (05/17/2013): on right, s/p dilated 03/2010 Family History Medical History Relation Comments POTS [Other] Daughter oldest arnold chiari malformation [Other] Daughter third daughter kidney stone [Other] Daughter calcium oxa late, low citrate sjogren's [Other] Daughter same daughter as has stones kidney stone [Other] Father irritable bowel [Other] Other loose st ools usually Relation Status Comments Daughter Father Other Social History Tobacco Use Types Packs/Day Years Used Date Smoking Tobacco: Every Day Cigarettes 1 30 Smokeless Tobacco: Never Alcohol Use Standard Drinks/Week Comments Yes 0 (1 standard drink = 0.6 oz pur e alcohol) rare PHQ-2 Answer Date Recorded PHQ-2 score 2 01/29/2025 Area Deprivation Index Answer Date Aleksey rded National Score (1-100), lower number is lower ri sk 83 12/12/2024 State Score (1-10), lower number is lower risk 7 12/12/2024 Data from: https://www.neighborhoodatlas.medicine.[facility].edu/. Last address used for calculation [address] 12/12/2024 Comments No Sex and Gender Information Value Date Recorded Sex Assigned at Not on file Legal Sex Female 10:00 AM EDT Gender Identity Not on file Sexual Orientation Not on file Last Filed Vital Signs Vital Sign Reading Time Taken Comments Blood Pressure 105/80 04/12/2014 10:52 AM EDT Following Cystoscopy (from Extended Vitals) Pulse 72 02/04/2015 2:30 PM EDT Temperature 36.7 C (98 F) 04/12/2014 10:50 AM EDT Respiratory Rate 18 02/02/2014 1:16 PM EST Oxygen Saturation 100% 02/02/2014 1:1 6 PM EST Inhaled Oxygen Concentration - - Weight 42.7 kg (94 lb 1.6 oz) 02/04/2015 2:30 PM EDT Height 157.5 cm (5' 2 ) 02/04/2015 2:30 PM EDT Body Mass Index 17.21 02/04/2015 2:30 PM EDT Plan of Treatment Health Maintenance Due Date Last Done Comments Anxiety Screening 02/08/1988 Depression Screening 02/08/1988 HIV Screening 02/08/1988 Hepatitis C Screening 02/08/1988 DTaP,Tdap,Td Vaccine (1 - Tdap) 1989 Hepatitis B Vaccine (1 of 3 - 19+ 3-dose series) 1989 Pneumococcal Vaccine: 50+ (1 of 2 - PCV) 1989 Cervical Cancer Screening 1991 CT Colonography 2015 Cologuard (FIT-DNA) 2015 Colonoscopy 2015 Colorectal Cancer Screening 2015 Fecal Occult Blood 2015 Sigmoidoscopy 2015 Lung Cancer Screening 02/08/2020 Shingrix Vaccine (1 of 2) 02/08/2020 Influenza Vaccine (#1) 2025 12/16/2012 Mammogram Screening 08/28/2025 08/28/2024, 08/28/2024, 08/25/2024, Additional history exists Diabetes Screening 09/08/2027 09/08/2024, 0 08/25/2024, 08/25/2024, Additional history exists Lipid Screening 08/25/2029 08/25/2024, 05/04/2022 Insurance [facility] PPO Care Teams Crm Marketing Manager Relationship Specialty Start Date End Date Albino Judd MD PCP - General Internal Medicine 09/27/13
--- OUTSIDE RECORDS SUMMARY | 2025-07-04 18:19 | XMS_ITS | Clinical Summary ---
Author Organization Saplo tem Address [id number] [address] [place] [address] Care Team Providers Care Sequencing Machine Operator Name Role Phone Unavailable Primary Care Provider Unavailabl e Allergies Active Allergy Reactions Criticality Noted Date Comments Lorazepam Swelling 04/15/2017 Codeine 04/15/2017 Does not metabolize well Amitriptyline 04/15/2017 High blood pressure Gabapentin 04/15/2017 Sores in mouth Morphine 04/15/2017 Does not metabolize well Metoclopramide Hcl 04/15/2017 Made her sleep walk Somatorelin High 04/15/2017 unknown Topiramate Swelling 04/15/2017 eyes Diazepam Swelling 04/15/2017 eyes Medications montelukast (SINGULAIR) 10 mg tablet Take 1 tablet (10 mg total) by mouth nightly. Active baclofen (LIORESAL) 20 mg tablet Take 1 tablet (20 mg total) by mouth 3 (three) times a day as needed for muscle spasms. Active omeprazole (PriLOSEC OTC) 20 mg tablet,delayed release (DR/EC) Take 10 mg by mouth 2 (two) times a day. Active fluticasone propionate (FLONASE) 50 mcg/actuation nasal spray Administer 1 spray into each nostril as needed. Active levothyroxine (SYNTHROID, LEVOTHROID) 100 MCG tablet Take 75 mcg by mouth every morning before breakfast. Active potassium chloride (K-DUR,KLOR-CON) 10 MEQ CR tablet Take 2 tablets (20 mEq total) by mouth daily with breakfast. Active alendronate (FOSAMAX) 70 mg tablet Take 1 tablet (70 mg total) by mouth every 7 days. Takes on Active OXcarbazepine (TRILEPTAL) 300 mg tablet Take 1 tablet (300 mg total) by mouth 3 (three) times a day. 300mg morning and at noon and 600mg at night Active cetirizine (ZyrTEC) 10 mg tablet Take 1 tablet (10 mg total) by mouth as needed. Active doxepin (SINEquan) 10 mg capsule Take 1 capsule (10 mg total) by mouth nightly. Active liothyronine (CYTOMEL) 5 MCG tablet Take 1 tablet (5 mcg total) by mouth daily with breakfast. Active meclizine (ANTIVERT) 25 mg tablet Take 1 tablet (25 mg total) by mouth 4 (four) times daily after meals and at bedtime as needed. Active sodium chloride 1 gram tablet Take 2 tablets (2 g total) by mouth in the morning and 2 tablets (2 g total) before bedtime. Active estrogens, conjugated, (PREMARIN) 0.625 mg tablet Take 1 tablet (0.625 mg total) by mouth daily with breakfast. Active calcium carbonate-vitami n D2 (OSCAL) 250 (625)-125 mg-unit per tablet Take 1 tablet by mouth daily with breakfast. Active ondansetron (ZOFRAN) 4 mg tablet Take 1 tablet (4 mg total) by mouth every 8 (eight) hours as needed for nausea or vomiting. Active cholecalciferol, vitamin D3, 2,000 units tablet Take 1 tablet (2,000 Units total) by mouth daily with breakfast. 1 Active butalbital-aceta minophen-caff (FIORICET, ESGIC) 50-325-40 mg per tablet Take 1 tablet by mouth every 4 (four) hours as needed for headaches. Active oxybutynin (DITROPAN) 5 mg tablet Take 1 tablet (5 mg total) by mouth as needed. 1 Active CENTRUM SILVER WOMEN 8 mg iron-400 mcg-300 mcg tablet Take 1 tablet by mouth daily with breakfast. 1 Active ЕКАТЕРИНА ALLERGY 180 mg tablet Take 1 tablet (180 mg total) by mouth daily with breakfast. 1 Active naloxone (NARCAN) 4 mg/actuation spray,non-aeroso l nasal spray Administer 1 spray (4 mg total) into each nostril as needed for opioid reversal. 2 each 2 Active Additional Information Patient not taking.Reported on 12/13/2024 tiZANidine (ZANAFLEX) 4 mg tabletIndication s:Herniated cervical disc Take 1 tablet (4 mg total) by mouth every 8 (eight) hours as needed for muscle spasms. 30 tablet 1 2 Active Additional Information Patient not taking.Reported on 12/13/2024 loperamide (IMODIUM) 2 mg capsule Take 1 capsule (2 mg total) by mouth 4 (four) times a day as needed for diarrhea. Active oxyCODONE-acetam inophen (PERCOCET) 7.5-325 mg per tablet Take 1 tablet by mouth every 6 (six) hours as needed for pain. Active albuterol (PROVENTIL,EDIL MCKINLEY) 2.5 mg /3 mL (0.083 %) nebulizer solutionIndicati ons:COPD exacerbation (CMS-HCC) Inhale 3 mL (2.5 mg total) by nebulization every 6 (six) hours as needed for wheezing. 75 mL 2 Active Additional Information Patient not taking.Reported on 12/13/2024 albuterol (PROVENTIL HFA;VENTOLIN HFA) 90 mcg/actuation inhalerIndicatio ns:COPD exacerbation (CMS-HCC) Inhale 2 puffs every 4 (four) hours as needed for wheezing or shortness of breath. 18 g 2 Active Additional Information Patient not taking.Reported on 12/13/2024 magnesium oxide (MAGOX) 400 mg tablet Take 1 tablet (400 mg total) by mouth in the morning and 1 tablet (400 mg total) before bedtime. 4 Active lisinopriL (PRINIVIL,ZESTRI L) 2.5 mg tablet Take 1 tablet (2.5 mg total) by mouth in the morning. 4 Active lidocaine (SALONPAS) 4 % Place 1 patch on the skin daily. 30 patch 5 Active methylPREDNISolo ne (MEDROL, ABRAHAM,) 4 mg tablet follow package directions 21 tablet 5 Active Active Problems Problem Noted Date Diagnosed Date Autonomic dysfunction 08/31/2024 Hyponatremia 08/31/2024 Palpitations 08/31/2024 Shortness of breath 08/31/2024 Primary hypertension 05/22/2022 Cervical radiculopathy 12/05/2021 Difficult intravenous access 11/25/2021 Anesthesia complication 11/25/2021 Overview (11/25/2021): has a low resting heart rate GERD (gastroesophageal reflux disease) Herniated cervical disc 11/24/2021 Overview (11/24/2021): Added automatically from request for surgery [id number] Nystagmus 08/26/2021 Intractable migraine with aura without status mi grainosus 08/26/2021 Chiari malformation type I 08/26/2021 Xerostomia 03/24/2021 Vertigo 02/11/2021 Tinnitus 02/11/2021 Neurocardiogenic syncope 05/18/2018 TMJ arthropathy 05/17/2018 Bone spur 04/07/2018 Cervical nerve root compression 04/07/2018 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/2021): Hyper joint mobility- Type 3 Idiopathic small fiber peripheral neuropathy 08/2018 Kyphosis 04/07/2018 Lordosis of cervicothoracic region 04/07/2018 Scoliosis 04/07/2018 UPJ (ureteropelvic junction) obstruction 018 Overview (11/24/2021): on right Overview: on right Ureteral stricture 04/07/2018 Overview (11/24/2021): on right, s/p dilated 03/2010 Overview: on right, s/p dilated 03/2010 S/P nasal septoplasty 09/29/2017 Altered mental status 07/12/2017 Eustachian tube dysfunction 05/10/2017 Spondylosis without myelopat hy or radiculopathy, lumbar region 04/15/2017 Cervical spondylosis with myelopathy 04/15/2017 Other intervertebral disc displacement, thoracic region 04/15/2017 Radiculopathy, thoracolumbar region 04/15/2017 Lower urinary tract infectious disease 4 Mixed incontinence 02/02/2014 Meatal stenosis 02/02/2014 Increased frequency of urination 01/23/2014 Right flank pain 01/23/2014 Stress incontinence, female 01/23/2014 Urge incontinence 01/23/2014 Urinary urgency 01/23/2014 Hydronephrosis, right 05/17/2013 Resolved Problems Problem Noted Date Diagnosed Date Resolved Date Ira bullosa 07/07/2017 05/17/2018 Deviated septum 07/07/2017 05/17/2018 Chronic sinusitis 05/10/2017 05/17/2018 Nasal septal spur 05/10/2017 05/17/2018 Encounters Date Type Department Care Team Description 06/13/2025 5:39 PM EDT - 06/13/2025 11:59 PM EDT Hospital Encounter [facility] - MRI [address] [place] [address] Kulwinder Tanner MD Vertigo Discharge Disposition: Home 06/11/2025 Travel 05/23/2025 Orders Only [facility] [address] [place] [id number] Kulwinder Tanner MD Vertigo (Primary Dx) 05/22/2025 5:35 PM EDT - 05/22/2025 9:51 PM EDT Emergency [facility] - Emergency [address] [place] [id number] Kulwinder Easley MD Hallucinations (Primary Dx) Discharge Disposition: Home 05/22/2025 Travel 05/07/2025 4:27 PM EDT - 05/07/2025 7:21 PM EDT Emergency [facility] - Emergency [address] [place] [address] Elevated liver enzymes (Primary Dx); Sciatica of left side; Left hip pain; Dysuria; Hypokalemia Discharge Disposition: Home 05/07/2025 Travel 05/04/2025 6:55 PM EDT - 05/04/2025 7:55 PM EDT Emergency [facility] - Emergency [address] [place] [address] Darrell Oliveira MD Left hip pain (Primary Dx); Piriformis muscle pain Discharge Disposition: Home 05/04/2025 Travel from Last 3 Months Immunizations Immunization Administration Dates Next Due COVID-19, mRNA, LNP-S, PF, 100mcg/0.5mL Dose 02/2021,03/04/2021 Family History Medical History Relation Name Comments Drug abuse Brother Lung disease Father Parkinsonism Maternal Grandfather Alzheimer's disease Maternal Grandmother Hypertension Mother Cancer Paternal Grandfather Alzheimer's disease Paternal Grandmother Anesthesia problems Neg Hx Bleeding Disorder Neg Hx Breast cancer Neg Hx Clotting disorder Neg Hx Colon cancer Neg Hx Diabetes Neg Hx Heart attack Neg Hx Ovarian cancer Neg Hx Stroke Neg Hx Relation Name Status Comments Brother Father Maternal Grandfather Maternal Grandmother Mother Alive Paternal Grandfather Paternal Grandmother Sister 1 Alive Sister 2 Alive Social History Tobacco Use Types Packs/Day Years Used Date Smoking Tobacco: Former Cigarettes 0.5 20 Vaping/E-cigarettes Smokeless Tobacco: Never Tobacco Cessation:Counseling Given: Not Answered Comments:Currently uses E [employer]ig[employer]tes Alcohol Use Standard Drinks/Week Comments Not Currently 0 (1 standard drink = 0.6 oz pur e alcohol) rarely PHQ-2 Answer Date Recorded Total Score 4 08/26/2021 Childcare Answer Date Recorded Childcare Unknown 05/10/2019 Employment Answer Date Recorded Employment Unknown 05/10/2019 Hunger Screening Answer Date Recorded Within the past 12 months we worried whether our food would run out before we got money to buy more. Sometimes True 025 Within the past 12 months th e food we bought just didn't last and we didn't have money to get more. Sometimes True 05/22/2025 Purpose - Life Answer Date Recorded Purpose and direction in life Unknown Comments No Sex and Gender Information Value Date Recorded Sex Assigned at Not on file Legal Sex Female 11:29 AM EDT Gender Identity Female 06/26/2021 11:02 PM EDT Sexual Orientation Straight 06/26/2021 11 :02 PM EDT Last Filed Vital Signs Vital Sign Reading Time Taken Comments Blood Pressure 159/101 05/22/2025 6:30 PM EDT Pulse 101 05/22/2025 6:30 PM EDT Temperature 36.8 C (98.3 F) 05/22/2025 5:38 PM EDT Respiratory Rate 20 05/22/2025 6:30 PM EDT Oxygen Saturation 97% 05/22/2025 6:30 PM EDT Inhaled Oxygen Concentration - - Weight 47.2 kg (104 lb) 06/13/2025 5:39 PM EDT Height 157.5 cm (5' 2 ) 06/13/2025 5:39 PM EDT Body Mass Index 19.02 06/13/2025 5:39 PM EDT Plan of Treatment Health Maintenance Due Date Last Done Comments Depression Screening 1982 DTaP,Tdap and Td Vaccines (1 - Tdap) 1989 Zoster (Shingles) Vaccine (1 of 2) 02/08/2020 COVID-19 Vaccine (3 - season) 07/30/202402/2021, 03/04/2021 Influenza Vaccine 07/30/2025 12/16/2012 Tobacco Screening 05/22/2026 05/22/2025 Adult BMI Screening 06/13/2026 06/13/2025 Medical Devices Implanted Type Area Accessibility Lift Technician Device Identifier Shelf Expiration Date Model / Serial / Lot Neuro Stimulator-05/29 Implanted:Qty: 1 on 05/29/2014 by Genaro Hawkins MD Neuro Stimulator Spine Lumbar [id number] / [id number] / Description:medtronic pain s timulator Spacer Spnl 14x6mm Coalition Mis 7d 12mm Ti Strl Lf - [id number] Implanted:Qty: 1 on 12/05/2021 by Kulwinder Tanner MD at [facility] Orthopedic Implant Globus [id number] / / Graft Bn Cllr Bn Mtrx Sm 1cc Vivigen Frmbl Rpl [id number] Rpl Special [id number] - [id number] Implanted:Qty: 1 on 12/05/2021 by Kulwinder Tanner MD at [facility] Other Implant Lifenet 11/04/2022 BL-1600-0 / / [id number] Screw Bn 12mm 3.6mm Slf Drl [facility] Ns - [id number] Implanted:Qty: 2 on 12/05/2021 by Kulwinder Tanner MD at [facility] Screw Globus [id number] / / Procedures Procedure Name Priority Date/Time Associated Diagnosis Comments MR BRAIN WO CONT Routine 06/13/2025 6:[address] BRAIN WO CONT STAT 05/22/2025 9:38 PM EDT POCT NURSING URINE MACROSCOPIC UA Routine 05/22/2025 9:10 PM EDT DRUG SCREEN, URINE STAT 05/22/2025 9: 01 PM EDT ER EXTRA URINE MARBLE STAT 05/22/2025 9:01 PM EDT ER EXTRA URINE CULTURE STAT 9:01 PM EDT ER EXTRA URINE STAT 05/22/2025 9:01 PM EDT TROP I, HIGH SENSITIVITY 1 HOUR STAT 05/22/2025 7:42 PM EDT TROPONIN I, HIGH SENSITIVITY 0 HOUR STAT 05/22/2025 6:16 PM EDT ACETAMINOPHEN LEVEL STAT 05/22/2025 6 :16 PM EDT SALICYLATE LEVEL STAT 05/22/2025 6:16 PM EDT TROPONIN I, HIGH SENSITIVITY 0 HOUR STAT 05/22/2025 6:16 PM EDT MAGNESIUM STAT 05/22/2025 6:16 PM EDT ETHANOL STAT 05/22/2025 6:16 PM EDT COMPREHENSIVE METABOLIC PANEL STAT 05/22/2025 6:16 PM EDT CBC WITH AUTO DIFFERENTIAL STAT 05/22/2025 6:16 PM EDT POCT NURSING URINE MACROSCOPIC UA Routine 05/07/2025 6:09 PM EDT ER EXTRA URINE MARBLE STAT 05/07/2025 5:59 PM EDT ER EXTRA URINE CULTURE STAT 5:59 PM EDT ER EXTRA URINE STAT 05/07/2025 5:[address] LUMBAR SPINE WO CONT STAT 05/07/2025 5:26 PM EDT MAGNESIUM STAT 05/07/2025 5:07 PM EDT COMPREHENSIVE METABOLIC PANEL STAT 05/07/2025 5:07 PM EDT CBC WITH AUTO DIFFERENTIAL STAT 05/07/2025 5:07 PM EDT EXTRA TUBES BLUE TOP Routine 05/07/2025 5:06 PM EDT EXTRA TUBES Routine 05/07/2025 5:06 PM EDT XR HIP LT 2-3 VIEWS W OR WO PELVIS STAT 05/04/2025 7:21 PM EDT from Last 3 Months Results * MR brain without contrast (06/13/2025 6:32 PM EDT) Anatomical Region Laterality Modality Neuro, Head, Head and Neck, Neuro Covera N/A Magnetic Resonance 06/20/2025 9:08 AM EDT Narrative 06/20/2025 6:19 PM EDT MR BRAIN WO CONT HISTORY: Vertigo COMPARISON: 10/27/2017 TECHNIQUE: Multisequence, multiplanar MR images of the brain were obtained without intravenous contrast. FINDINGS: No acute ischemia. No extra-axial mass or fluid collection. No acute hemorrhage. No midline shift. The cerebral volume, ventricles, cisterns, and sulci are normal for patient age. Mild burden of T2 FLAIR hyperintensities in the periventricular and subcortical white matter which is nonspecific but most commonly seen as sequela of chronic microangiopathy. Small foci of T2 hyperintense signal in the left cerebellar hemisphere. The brainstem is unremarkable. The sella is unremarkable. Satisfactory flow voids within the anterior and posterior circulation. The orbits are unremarkable. The visualized paranasal sinuses and mastoid air cells are unremarkable. No acute osseous abnormalities. IMPRESSION: * No acute intracranial abnormality. * Small foci of T2 signal abnormality within the left cerebellum which may represent remote lacunar infarcts or perivascular spaces. Approved by Resident: Ryan Alcantara DO on 06/20/2025 9:08 AM Lucius Jackman MD have personally reviewed the image(s) and agree with and/or edited the report Finalized by Lucius Ordoñez MD on 06/20/2025 6:19 PM Procedure Note Lucius Ordoñez MD - 06/20/2025 MR BRAIN WO CONT HISTORY: Vertigo COMPARISON: 10/27/2017 TECHNIQUE: Multisequence, multiplanar MR images of the brain wereobtained without intravenous contrast. FINDINGS: No acute ischemia. No extra-axial mass or fluid collection. No acutehemorrhage. No midline shift. The cerebral volume, ventricles, cisterns, and sulci are normal forpatient age. Mild burden of T2 FLAIR hyperintensities in the periventricular andsubcortical white matter which is nonspecific but most commonly seen assequela of chronic microangiopathy. Small foci of T2 hyperintense signal in the left cerebellar hemisphere.The brainstem is unremarkable. The sella is unremarkable. Satisfactory flow voids within the anterior and posterior circulation. The orbits are unremarkable. The visualized paranasal sinuses and mastoid air cells are unremarkable. No acute osseous abnormalities. IMPRESSION: * No acute intracranial abnormality. * Small foci of T2 signal abnormality within the left cerebellum whichmay represent remote lacunar infarcts or perivascular spaces. Approved by Resident: Ryan Alcantara DO on 06/20/2025 9:08 AM I, Lucius Ordoñez MD have personally reviewed the image(s) and agree withand/or edited the report Finalized by Lucius Ordoñez MD on 06/20/2025 6:19 PM us Kulwinder Tanner MD IMG MRI ORDERABLES Final Resu lt * CT brain without contrast (05/22/2025 9:38 PM EDT) Anatomical Region Laterality Modality Neuro, Head, Head and Neck, Neuro Covera N/A Computed Tomography 05/22/2025 9:39 PM EDT Narrative 05/22/2025 9:41 PM EDT HISTORY: A 55-year-old female with a history of headaches with confusion. Hallucinations. EXAM/TECHNIQUE: Multidetector spiral CT scan of brain is performed. Multiplanar reconstruction images are reformatted. All CT scans at this facility use dose modulation, iterative reconstruction, and/or weight based dosing when appropriate to reduce radiation dose to as low as reasonably achievable. COMPARISON: Comparison is made with prior CT scan of brain of 07/11/2017. FINDINGS: The ventricular system is normal in size and configuration. There is normal differentiation of espinoza and white matters. There is no evidence of intracranial hemorrhage or acute pathology. The cerebellum and brainstem are unremarkable. No mass effect, midline shift of the structures or extra-axial fluid collections are noted. The calvarium is intact. The visualized paranasal sinuses and mastoid air cells are clear. IMPRESSION: * No evidence of intracranial hemorrhage or acute pathology. Finalized by Jay Muhammad MD on 05/22/2025 9:41 PM Procedure Note Jay Muhammad MD - 05/22/2025 HISTORY: A 55-year-old female with a history of headaches with confusion.Hallucinations. EXAM/TECHNIQUE: Multidetector spiral CT scan of brain is performed.Multiplanar reconstruction images are reformatted. All CT scans at this facility use dose modulation, iterativereconstruction, and/or weight based dosing when appropriate to reduceradiation dose to as low as reasonably achievable. COMPARISON: Comparison is made with prior CT scan of brain of07/11/2017. FINDINGS: The ventricular system is normal in size and configuration.There is normal differentiation of espinoza and white matters. There is no evidence of intracranial hemorrhage or acute pathology. The cerebellum and brainstem are unremarkable. No mass effect, midline shift of the structures or extra-axial fluidcollections are noted. The calvarium is intact. The visualized paranasal sinuses and mastoid air cells are clear. IMPRESSION: * No evidence of intracranial hemorrhage or acute pathology. Finalized by Jay Muhammad MD on 05/22/2025 9:41 PM Kulwinder Easley MD IMG CT ORDERABLES Final Result * POCT Nursing Urine Macroscopic UA (05/22/2025 9:10 PM EDT) Only the most recent of2 resultswithin the time period is included. POC Urine Specific [place] 1.010 1.010, 1.015, 1.020, 1.025 05/22/2025 9:03 PM EDT [facility] POC Urine Leukocyte Esterase Negative Negative 05/22/2025 9:03 PM EDT [facility] POC Urine Nitrite Negative Negative 05/22/2025 9:03 PM EDT [facility] POC Urine pH 5.5 5.0, 6.0, 6.5, 7.0, 7.5, 8.0, 8.5, 5.5 05/22/2025 9:03 PM EDT [facility] POC Urine Protein Negative Negative 05/22/2025 9:03 PM EDT [facility] POC Urine Glucose Negative Negative 05/22/2025 9:03 PM EDT [facility] POC Urine Ketones Negative Negative 05/22/2025 9:03 PM EDT [facility] POC Urine Urobilinogen 0.2 E.U./dL 05/22/2025 9:03 PM EDT [facility] POC Urine Bilirubin Negative Negative 05/22/2025 9:03 PM EDT [facility] POC Urine Blood/HGB Negative Negative 05/22/2025 9:03 PM EDT [facility] Urine 05/22/2025 9:10 PM EDT 05/22/2025 9:03 PM EDT us Kulwinder Easley MD POINT OF CARE TEST ORDERABLES Final Result Performing Organization Address City/[facility] Co de Phone Number [address] [place] [address], [place] * Extra Urine Mora (05/22/2025 9:01 PM EDT) Only the most recent of2 resultswithin the time period is included. Extra Tube Auto Resulted 05/22/2025 11:01 PM EDT [facility] Urine Urine specimen collection, clean catch / Unknown 05/22/2025 9:01 PM EDT 05/22/2025 9:08 PM EDT Ruthann Schmidt MANAGER [employer] URINE ORDERABLES Final Res ult Performing Organization Address [facility] de Phone Number [address] [place] [address], [place] * Extra Urine Culture (05/22/2025 9:01 PM EDT) Only the most recent of2 resultswithin the time period is included. Extra Tube Auto Resulted 05/22/2025 11:01 PM EDT [facility] Urine Urine specimen collection, clean catch / Unknown 05/22/2025 9:01 PM EDT 05/22/2025 9:08 PM EDT us Ruthann Schmidt MANAGER [employer] URINE ORDERABLES Final Res ult Performing Organization Address City/[facility] Co de Phone Number [address] [place] [address], [place] * Extra Urine (05/22/2025 9:01 PM EDT) Only the most recent of2 resultswithin the time period is included. Extra Tube Auto Resulted 05/22/2025 11:01 PM EDT [facility] Urine Urine specimen collection, clean catch / Unknown 05/22/2025 9:01 PM EDT 05/22/2025 9:08 PM EDT us Ruthann Schmidt MANAGER [employer] URINE ORDERABLES Final Res ult [address] [place] [address], [place] * (ABNORMAL) Drug Screen, Urine (05/22/2025 9:01 PM EDT) AMPHETAMINE/METHAM P Negative Negative 05/22/2025 9:58 PM EDT [facility] Comment:AMPH/METH screening cut off = 1000 ng/mL COCAINE METABOLITE Negative Negative 2024 9:58 PM EDT [facility] Comment:Cocaine screening cu t off value = 300 ng/mL ECSTASY Negative Negative 05/22/2025 9:58 PM EDT [facility] Comment:Ecstasy screening cu t off value = 500 ng/mL METHADONE Negative Negative 05/22/2025 9:58 PM EDT [facility] Comment:Methadone screening cut off value = 300 ng/mL. OPIATES Negative Negative 05/22/2025 9:58 PM EDT [facility] Comment: Opiates screening cut off value = 300 ng/mL This test is used for the detection of codeine, hydrocodone (>1000 ng/mL), morphine and hydromorphone (>900 ng/mL) in urine. OXYCODONE Positive(A) Negative 05/22/2025 9:58 PM EDT [facility] Comment: Oxycodone screening cut off value = 300 ng/mL This test is used for the detection of oxycodone and oxymorphone in urine. PHENCYCLIDINE Negative Negative 05/22/2025 9:58 PM EDT [facility] Comment:Phencyclidine screen ing cut off value = 25 ng/mL CANNABINOIDS Positive(A) Negative 05/22/2025 9:58 PM EDT [facility] Comment:Cannabinoids/THC scr eening cut off value = 50 ng/mL Urine Barbiturates Negative Negative 2024 9:58 PM EDT [facility] Comment:Barbiturates screeni ng cut off value = 200 ng/mL BENZODIAZEPINES Negative Negative 9:58 PM EDT [facility] Comment:Benzodiazepines scre ening cut off value = 200 ng/mL Urine 05/22/2025 9:01 PM EDT 05/22/2025 9:08 PM EDT Narrative [facility] - 05/22/2025 9:58 PM EDT Confirmation available upon request. us Ruthann Schmidt MANAGER [employer] URINE ORDERABLES Final Res ult [address] [place] [address], [place] * Troponin I, High Sensitivity 1 Hour (05/22/2025 7:42 PM EDT) TROPONIN I, HIGH SENSITIVITY 8 <16 ng/L 05/22/2025 8:30 PM EDT [facility] Blood Venous blood / Unknown 05/22/2025 7:42 PM EDT 05/22/2025 7:57 PM EDT us Ruthann Schmidt MANAGER [employer] LAB BLOOD ORDERABLES Final Result [address] [place] [address], [place] * Troponin I, High Sensitivity 0 Hour (05/22/2025 6:16 PM EDT) Pathologist [facility] TROPONIN I, HIGH SENSITIVITY 7 <16 ng/L 05/22/2025 7:07 PM EDT [facility] Blood Venous blood / Unknown 05/22/2025 6:16 PM EDT 05/22/2025 6:26 PM EDT us Ruthann Schmidt MANAGER [employer] LAB BLOOD ORDERABLES Final Result [facility] [address] [place] [address], [place] * (ABNORMAL) CBC auto differential (05/22/2025 6:16 PM EDT) Only the most recent of2 resultswithin the time period is included. [facility] WBC 12.0(H) 4 - 11 x10E9/L 05/22/2025 6:40 PM EDT [facility] RBC Count 4.56 3.8 - 5.2 X10E12/L 05/22/2025 6:40 PM EDT [facility] Hemoglobin 15.0 11.7 - 15.5 g/dL 05/22/2025 6:40 PM EDT [facility] Hematocrit 42.6 35 - 47 % 05/22/2025 6:40 PM EDT [facility] MCV 93 80 - 100 fL 05/22/2025 6:40 PM EDT [facility] MCH 32.8 27 - 34 pg 05/22/2025 6:40 PM EDT [facility] MCHC 35.1 32 - 36 g/dL 05/22/2025 6:40 PM EDT [facility] RDW 12.5 11.5 - 15 % 05/22/2025 6:40 PM EDT [facility] Platelet Count 315 150 - 450 X10E9/L 05/22/2025 6:40 PM EDT [facility] MPV 9.1 7 - 12 fL 05/22/2025 6:40 PM EDT [facility] Neutrophils % 60.2 % 05/22/2025 6:40 PM EDT [facility] Lymphocytes % 30.1 % 05/22/2025 6:40 PM EDT [facility] Monocytes % 8.6 % 05/22/2025 6:40 PM EDT [facility] Eosinophils % 0.3 % 05/22/2025 6:40 PM EDT [facility] Basophils % 0.8 % 05/22/2025 6:40 PM EDT [facility] Neutrophils Absolute (A) 7.2(H) 1.5 - 6.6 10*3/uL 05/22/2025 6:40 PM EDT [facility] Lymphocytes Absolute 3.6(H) 1.0 - 3.5 10*3/uL 05/22/2025 6:40 PM EDT [facility] Monocytes Absolute 1.0(H) 0.0 - 0.9 10*3/uL 05/22/2025 6:40 PM EDT [facility] Eosinophils Absolute 0.0 0.0 - 0.4 10*3/uL 05/22/2025 6:40 PM EDT [facility] Basophils Absolute 0.1 0.0 - 0.2 10*3/uL 05/22/2025 6:40 PM EDT [facility] Differential Type AUTOMATED DIFFERENTIAL 05/22/2025 6:40 PM EDT [facility] Blood Venous blood / Unknown 05/22/2025 6:16 PM EDT 05/22/2025 6:26 PM EDT us Ruthann Schmidt MANAGER [facility] BLOOD ORDERABLES Final Result [facility] [address] [place] [address], [place] * Magnesium (05/22/2025 6:16 PM EDT) Only the most recent of2 resultswithin the time period is included. MAGNESIUM 1.8 1.8 - 2.6 mg/dL 05/22/2025 7:03 PM EDT [facility] Blood Venous blood / Unknown 05/22/2025 6:16 PM EDT 05/22/2025 6:26 PM EDT us Ruthann Schmidt MANAGER [facility] BLOOD ORDERABLES Final Result Performing Organization Address City/[facility] Co de Phone Number [address] [place] [address], [place] * Ethanol (05/22/2025 6:16 PM EDT) ETHANOL <0.010 <=0.080 g/dL 05/22/2025 7:03 PM EDT [facility] Comment: This report is intended for use in clinical monitoring or management of patients. Blood Venous blood / Unknown 05/22/2025 6:16 PM EDT 05/22/2025 6:26 PM EDT us Ruthann Schmidt APRN-[facility] BLOOD ORDERABLES Final Result Performing Organization Address [facility] de Phone Number [address] [place] [address], [place] * (ABNORMAL) Acetaminophen level (05/22/2025 6:16 PM EDT) ACETAMINOPHEN 5.2(L) 10.0 - 30.0 ug/mL 05/22/2025 7:03 PM EDT [facility] Blood Venous blood / Unknown 05/22/2025 6:16 PM EDT 05/22/2025 6:26 PM EDT Narrative [facility] - 05/22/2025 7:03 PM EDT Reference ranges are for therapeutic limits. us Ruthann Schmidt MANAGER [facility] BLOOD ORDERABLES Final Result [facility] [address] [place] [address], [place] * Salicylate level (05/22/2025 6:16 PM EDT) SALICYLATE <4.0 2.0 - 25.0 mg/dL 05/22/2025 7:03 PM EDT [facility] Blood Venous blood / Unknown 05/22/2025 6:16 PM EDT 05/22/2025 6:26 PM EDT Narrative [facility] - 05/22/2025 7:03 PM EDT Reference ranges are for therapeutic limits. us Ruthann Schmidt MANAGER [facility] BLOOD ORDERABLES Final Result [address] [place] [address], [place] * (ABNORMAL) Comprehensive metabolic panel (05/22/2025 6:16 PM EDT) Only the most recent of2 resultswithin the time period is included. Pathologist [facility] SODIUM 134 134 - 146 mmol/L 05/22/2025 7:03 PM EDT [facility] POTASSIUM 2.9(L) 3.5 - 5.0 mmol/L 05/22/2025 7:03 PM EDT [facility] CHLORIDE 101 98 - 109 mmol/L 05/22/2025 7:03 PM EDT [facility] CARBON DIOXIDE 23 22 - 32 mmol/L 05/22/2025 7:03 PM EDT [facility] ANION GAP 10 5 - 15 mmol/L 05/22/2025 7:03 PM EDT [facility] BLOOD UREA NITROGEN 13 5 - 23 mg/dL 05/22/2025 7:03 PM EDT [facility] CREATININE 0.83 0.40 - 1.00 mg/dL 05/22/2025 7:03 PM EDT [facility] Comment:METHOD TRACEABLE TO IDMS STANDARD GLUCOSE 181(H) 65 - 99 mg/dL 05/22/2025 7:03 PM EDT [facility] CALCIUM 9.1 8.5 - 10.5 mg/dL 05/22/2025 7:03 PM EDT [facility] TOTAL PROTEIN 7.0 6.0 - 8.0 g/dL 05/22/2025 7:03 PM EDT [facility] ALBUMIN 4.4 3.2 - 5.3 g/dL 05/22/2025 7:03 PM EDT [facility] ALKALINE PHOSPHATASE 112 39 - 130 U/L 05/22/2025 7:03 PM EDT [facility] AST 36 <=41 U/L 05/22/2025 7:03 PM EDT [facility] ALT 34(H) <=31 U/L 05/22/2025 7:03 PM EDT [facility] BILIRUBIN,TOTAL 0.9 0.3 - 1.2 mg/dL 05/22/2025 7:03 PM EDT [facility] EGFR Non-Race Dependent 83 >=60 ml/min/1.7 3sq.m 05/22/2025 7:03 PM EDT [facility] Comment: eGFR not reported due to non-numeric value for Creatinine. Reported eGFR is based on the CKD-EPI 2020 equation that does not use a race coefficient. Blood Venous blood / Unknown 05/22/2025 6:16 PM EDT 05/22/2025 6:26 PM EDT us Ruthann Schmidt MANAGER [facility] BLOOD ORDERABLES Final Result [facility] [address] [facility] [place] [address], * CT lumbar spine without contrast (05/07/2025 5:26 PM EDT) Anatomical Region Laterality Modality MSK, Neuro, Spine, L-spine, Spine Covera N/A Computed Tomography 05/07/2025 5:37 PM EDT Narrative 05/07/2025 5:39 PM EDT EXAM: CT SCAN OF THE LUMBAR SPINE WITHOUT CONTRAST CLINICAL INFORMATION: back pain,. TECHNIQUE: CT lumbar spine performed without contrast with axial, coronal and sagittal images. Automated exposure control utilized. COMPARISON: None. FINDINGS: The lumbar spine maintains a normal lordotic curvature. There is no malalignment within the lumbar spine. There is no significant loss of the vertebral body or disc space heights. There is no evidence for an acute displaced fracture in the lumbar spine. There is a spinal stimulator device with the leads extending into the canal at the T11-T12 level and extending cranially into the thoracic canal. The limited visualized abdominal contents demonstrate changes of cholecystectomy. IMPRESSION: 1. Normal CT of the lumbar spine. 2. Spinal stimulator device and leads. All CT scans at this facility use dose modulation, iterative reconstruction, and/or weight based dosing when appropriate to reduce radiation dose to as low as reasonably achievable. Finalized by Gerald Benites MD on 05/07/2025 5:39 PM Procedure Note Gerald Benites MD - 05/07/2025 EXAM: CT SCAN OF THE LUMBAR SPINE WITHOUT CONTRAST CLINICAL INFORMATION: back pain,. TECHNIQUE: CT lumbar spine performed without contrast with axial, coronaland sagittal images. Automated exposure control utilized. COMPARISON: None. FINDINGS: The lumbar spine maintains a normal lordotic curvature. There is nomalalignment within the lumbar spine. There is no significant loss of thevertebral body or disc space heights. There is no evidence for an acutedisplaced fracture in the lumbar spine. There is a spinal stimulatordevice with the leads extending into the canal at the T11-T12 level and extendingcranially into the thoracic canal. The limited visualized abdominal contents demonstrate changes ofcholecystectomy. IMPRESSION: 1. Normal CT of the lumbar spine. 2. Spinal stimulator device and leads. All CT scans at this facility use dose modulation, iterativereconstruction, and/or weight based dosing when appropriate to reduceradiation dose to as low as reasonably achievable. Finalized by Gerald Benites MD on 05/07/2025 5:39 PM us Ruthann Schmidt MANAGER [facility] IMG CT ORDERABLES Final Re sult * Light Blue Top (05/07/2025 5:06 PM EDT) Extra Tube Auto Resulted 05/07/2025 7:01 PM EDT [facility] Blood Venous blood / Unknown 05/07/2025 5:06 PM EDT 05/07/2025 5:11 PM EDT us Ruthann Schmidt MANAGER [facility] BLOOD ORDERABLES Final Result [facility] [address] [place] [address], [place] * X-ray hip left 2-3 views with or without pelvis (05/04/2025 7:21 PM EDT) Anatomical Region Laterality Modality Lower Extremities, MSK, Hip Left Comp uted Radiography 05/04/2025 7:37 PM EDT Narrative 05/04/2025 7:37 PM EDT CLINICAL INFORMATION: fall 2 days ago, posterior hip pain TECHNIQUE: XR HIP LT 2-3 VIEWS W OR WO PELVIS 3 views left hip were obtained. There is no acute osseous abnormality. Mild osteoarthritic changes noted. Femoral necks intact. No acute fracture. IMPRESSION: No acute findings. Finalized by Stan Hannah MD on 05/04/2025 7:37 PM Procedure Note Stan Hannah MD - 05/04/2025 CLINICAL INFORMATION: fall 2 days ago, posterior hip pain TECHNIQUE: XR HIP LT 2-3 VIEWS W OR WO PELVIS 3 views left hip were obtained. There is no acute osseous abnormality.Mild osteoarthritic changes noted. Femoral necks intact. No acutefracture. IMPRESSION: No acute findings. Finalized by Stan Hannah MD on 05/04/2025 7:37 PM us Darrell Oliveira MD IMG DIAGNOSTIC IMAGING ORDERABL ES Final Result from Last 3 Months Insurance [employer]TH [employer]ICA[employer] Member Subscriber Plan / Payer (Ef fective 2024-Present) Name:Tori Soriano Guillermo Relation to Subscriber:Spouse Name:Bo Virgilio Allen Date of :1966 Address: [address] [place] [address] Payer ID:Not on file Type:Not on file Address: [address] [place] [id number] MEDICAID [place] Advance Directives * Full Code (Latest Code Status on File) Date Activated Date Inactivated Comments 07/12/2017 10:09 AM 07/12/2017 3:51 PM
--- OUTSIDE RECORDS SUMMARY | 2025-07-04 18:19 | XMS_ITS | Encounter Summary ---
Author Organization [facility] Address [address] [place] [address] Care Team Providers Care Security Coordinator Name Role Phone Albino Judd MD Primary Care Provider [phone] Albino Judd MD Primary Care Provider [phone] Marjorie Wiley RN Unavailable [phone] Albino Judd MD Unavailable Cristina Walter Unavailable Encounter Details Date Type Department Care Team (Late Contact Info) Description 04/19/2023 Abstract [facility] [address] [place] [address] Raymundo Fleming MD [address] [place], [place] [phone] Social History Tobacco Use Types Packs/Day Years Used Date Smoking Tobacco: Every Day Tobacco Cessation:Ready to Q uit: Not Asked; [...] Upcoming Encounters Date Type Department Care Team ([facility] Contact Info) Description 07/10/2025 1:00 PM EDT Office Visit [facility] [address] [place] [phone] Alice Reid PA [address] [place] [address] [place] [address] 07/31/2025 2:30 PM EDT Office Visit [facility] [address] [place] [address] Albino Judd MD [address] [place] [phone] documented as of this encounter Visit Diagnoses Not on filedocumented in this encounter Care Teams Security Coordinator Relationship Specialty Start Date End Date Albino Judd MD PCP - General Family Medicine 06/25/23 06/29/24 Albino Judd MD [address] [place] [phone] PCP - General Family Medicine 06/30/24 Albino Judd MD [address] [place] [phone] PCP - Medical [place] [employer] 08/29/24 11/28/99 Marjorie Wiley, LUCY [address] [place] [address] Registered Nurse Family Medicine 09/18/24 Cristina Walter PA [address] [place], [place] [address] Physician Spanish Speaking Babysitter Neurology 03/13/25 documented as of this encounter
--- OUTSIDE RECORDS SUMMARY | 2025-07-04 18:19 | XMS_ITS | Encounter Summary ---
Author Organization [facility] Address [address] [place] [address] Care Team Providers Care Wood Heel Attacher Name Role Phone Albino Judd MD Primary Care Provider [phone] Albino Judd MD Primary Care Provider [phone] Marjorie Wiley RN Unavailable [phone] Albino Judd MD Unavailable Cristina Walter Unavailable Encounter Details Date Type Department Care Team (Late st Contact Info) Description 04/18/2024 Abstract [facility] [address] [place] [address] Albino Judd MD [address] [place] [address] Social History Tobacco Use Types Packs/Day Years [...] 1:00 PM EDT Office Visit [facility] [place] [facility] [address] [place] [address] Alice Reid PA [address] [place] [address] [place], [place] [phone] 07/31/2025 2:30 PM EDT Office Visit [facility] [address] [place] [address] Albino Judd MD [address] [place] [address] documented as of this encounter Visit Diagnoses Not on filedocumented in this encounter Care Teams Wood Heel Attacher Relationship Specialty Start Date End Date Albino Judd MD PCP - General Family Medicine 06/25/23 06/29/24 Albino Judd MD [address] [place] [address] PCP - General Family Medicine 06/30/24 Albino Judd MD [address] [place] [address] PCP - Medical [place] [employer] 08/29/24 11/28/99 Marjorie Wiley, LUCY [address] [place] [address] Registered Nurse Family Medicine 09/18/24 Cristina Walter PA [address] [place] [address] Physician Industrial Management Teacher Neurology 03/13/25 documented as of this encounter
--- OUTSIDE RECORDS SUMMARY | 2025-07-04 18:19 | XMS_ITS | Encounter Summary ---
Author Organization [facility] Address [address] [place] [address] Care Team Providers Care Automotive Light Mechanic Name Role Phone Albino Judd MD Primary Care Provider [phone] Albino Judd MD Primary Care Provider [phone] Marjorie Wiley RN Unavailable [phone] Albino Judd MD Unavailable Cristina Walter Unavailable Encounter Details Date Type Department Care Team (Late st Contact Info) Description 04/07/2024 Abstract [facility] [address] [place] [address] Albino Judd MD [address] [place] [address] Social History Tobacco Use Types Packs/Day Years [...] EDT Office Visit [facility] [place] [facility] [address] [place] [address] Alice Reid PA [address] [place] [address] [place], [place] [phone] 07/31/2025 2:30 PM EDT Office Visit [facility] [address] [place] [address] Albino Judd MD [address] [place] [address] documented as of this encounter Visit Diagnoses Not on filedocumented in this encounter Care Teams Automotive Light Mechanic Relationship Specialty Start Date End Date Albino Judd MD PCP - General Family Medicine 06/25/23 06/29/24 Albino Judd MD [address] [place] [phone] PCP - General Family Medicine 06/30/24 Albino Judd MD [address] [place] [address] PCP - Medical [place] [employer] 08/29/24 11/28/99 Marjorie Wiley, LUCY [address] [place] [address] Registered Nurse Family Medicine 09/18/24 Cristina Walter PA [address] [place] [address] Physician Reducing Machine Operator Neurology 03/13/25 documented as of this encounter
--- OUTSIDE RECORDS SUMMARY | 2025-07-04 18:19 | XMS_ITS | Encounter Summary ---
Author Organization [facility] Address [address] [place] [address] Care Team Providers Care Mechatronics Technician Name Role Phone Albino Judd MD Primary Care Provider [phone] Marjorie Wiley RN Unavailable [phone] Albino Judd MD Unavailable Cristina Walter Unavailable Reason for Visit * Reason Onset Date Comments Med Refill 06/28/2025 Encounter Details Date Type Department Care Team (Late st Contact Info) Description 06/28/2025 [facility] [address] [place] [address] Albino Judd MD [address] [place] [address] Gastroesophageal reflux disease without esophagitis Social History Tobacco Use Types Packs/Day Years [...] often do you attend chur ch or buddhism services? 1 to 4 times per year 06/29/2024 Do you belong to any clubs o r organizations such as muslim groups, unions, fraternal or athletic groups, or [...] medical care, and heating? Somewhat hard 06/29/2024 [facility] of Occupat ional Health - Occupational Stress [...] any time in the past 12 m [facility], were you homeless or living in a fdc (including now)? No 06/29/2024 Comments Unknown Sex and Gender Information Value Date Recorded Sex Assigned at Not on file Legal Sex Female 8:23 PM EDT Gender Identity Not on file Sexual Orientation Not on file documented as of this encounter Miscellaneous Notes * Telephone Encounter - [facility] - 06/28/2025 9:47 AM EDT MEDICATION SENT TO [facility] documented in this encounter Plan of Treatment Upcoming Encounters Date Type Department Care Team (Late st Contact Info) Description 07/10/2025 1:00 PM EDT Office Visit [facility] BARRON [address] [facility] [place] [address] Alice Reid PA [address] [place] [address] 07/31/2025 2:30 PM EDT Office Visit [facility] [address] [place] [phone] Albino Judd MD [address] [place] [phone] documented as of this encounter Goals Goal Patient Goal Type Associated Problems Recent Progress Patient-Stated? Author Help patient manage antidepressant medication Care Plan Patient on antidepressant monitoring plan No NearRoxanne waldron Baseline PHQ-9 Care Plan Baseline PHQ-9 No Roxanne Leavitt documented as of this encounter Visit Diagnoses Diagnosis Gastroesophageal reflux disease without esophagitis Esophageal reflux documented in this encounter Additional Health Concerns Active Problems Noted Date Diagnosed Date Patient on antidepressant monitoring plan 2024 Baseline PHQ-9 03/28/2025 documented as of this encounter Care Teams Mechatronics Technician Relationship Specialty Start Date End Date Albino Judd MD [address] [place] [address] PCP - General Family Medicine 06/30/24 Albino Judd MD [address] [place] [address] PCP - Medical [place] [employer] 08/29/24 11/28/99 Marjorie Wiley, RN [address] [place], [place] [phone] Registered Nurse Family Medicine 09/18/24 Cristina Walter PA [address] [place] [address] Physician Special Events Manager Neurology 03/13/25 documented as of this encounter
--- OUTSIDE RECORDS SUMMARY | 2025-07-04 18:19 | XMS_ITS | Clinical Summary ---
Author Organization [facility] Address [address] [place] [phone] Phone Care Team Providers Care Educational/Development Assistant Name Role Phone Unavailable Primary Care Provider Unavailabl e Social History Tobacco Use Types Packs/Day Years Used Date Smoking Tobacco: Never Assessed Comments Unknown Sex and Gender Information Value Date Recorded Sex Assigned at Not on file Legal Sex Female 10:13 PM EST Gender Identity Not on file Sexual Orientation Not on file Plan of Treatment Not on file
--- OUTSIDE RECORDS SUMMARY | 2025-07-04 18:19 | XMS_ITS | Encounter Summary ---
Author Organization [facility] tem Address [id number] [place] [address] Care Team Providers Care Application Assistant Name Role Phone Albino Judd MD Primary Care Provider [phone] Encounter Details Date Type Department Care Team (Late st Contact Info) Description 06/30/2021 Telephone [facility] [address] [place] [address] Tammie Schmidt Social History Tobacco Use Types Packs/Day Years Used Date Smoking Tobacco: Every Day Cigarettes Vaping/E-cigarettes Smokeless Tobacco: Never Comments:Currently uses E Ci garttes Alcohol Use Standard Drinks/Week Comments Not Currently 0 (1 standard drink = 0.6 oz pur e alcohol) rarely PHQ-2 Answer Date Recorded Total Score 9 06/30/2021 Childcare Answer Date Recorded Childcare Unknown 05/10/2019 [...] have Coronavirus / COVID-19? No / Unsure 06/30/2021 2:57 PM EDT documented as of this encounter Miscellaneous Notes * Telephone Encounter - Tammie Schmidt - 06/30/2021 4:[address] Ramos, he would like this patient to be seen as a new patient to Dr. Jackson for dizziness.Thank you! * Telephone Encounter - Luz Elena Sheehan - 06/30/2021 4:47 PM EDT Patient is scheduled 08/26 at 3pm with . Referral was made out to not . documented in this encounter Plan of Treatment Not on file documented as of this encounter Visit Diagnoses Not on filedocumented in this encounter Additional Health Concerns Infection Onset Date Last Indicated Resolved Time COVID-19 Rule-Out 10/10/2022 10/10/2022 10/10/2022 5:46 PM EST Assessment Noted Time PHQ-9 Depression Total Score: 9 06/30/20 21 3:21 PM EDT documented as of this encounter Care Teams Application Assistant Relationship Specialty Start Date End Date Albino Judd MD PCP - General 04/05/14 05/03/25 documented as of this encounter
--- OUTSIDE RECORDS SUMMARY | 2025-07-04 18:19 | XMS_ITS | Encounter Summary ---
Author Organization [facility] Address [address] [place] [address] Care Team Providers Care Clinical Review Nurse Name Role Phone Albino Judd MD Primary Care Provider [phone] Source Comments In the event this information is protected by the Federal Confidentiality of Alcohol and Drug AbusePatient Records regulations: The Federal rules restrict any use of the information to criminally investigate or prosecute any alcohol or drug abuse patient.[facility] Encounter Details Date Type Department Care Team (Late st Contact Info) Description 01/29/2025 Patient Msg Neurology [address] [place] [phone] Fish Vela MD [address] [place] [address] Migraine and diet handout Social History Tobacco Use Types Packs/Day Years Used Date Smoking Tobacco: Every Day Cigarettes 1 30 Smokeless Tobacco: Never Alcohol Use Standard Drinks/Week Comments Yes 0 (1 standard drink = 0.6 oz pur e alcohol) rare PHQ-2 Answer Date Recorded PHQ-2 score 2 01/29/2025 Area Deprivation Index Answer Date Aleksey rded National Score (1-100), lower number is lower ri 83 12/12/2024 State Score (1-10), lower number is lower risk 7 12/12/2024 Data from: https://www.neighborhoodatlas.medicine.[facility]/. Last address used for calculation Xander ALFRED 12/12/2024 Comments No Sex and Gender Information Value Date Recorded Sex Assigned at Not on file Legal Sex Female 10:00 AM EDT Gender Identity Not on file Sexual Orientation Not on file documented as of this encounter Functional Status * Are you deaf or do you have serious difficulty hearing? Answer Date of Assessment Author No 02/04/2015 2:28 PM EDT Andrew Dai MA * Are you blind or do you have serious difficulty seeing, even when wearing glasses? Answer Date of Assessment Author No 02/04/2015 2:28 PM EDT Andrew Dai MA * Do you have serious difficulty walking or climbing stairs? Answer Date of Assessment Author No 02/04/2015 2:28 PM EDT Andrew Dai MA * Do you have difficulty dressing or bathing? Answer Date of Assessment Author No 02/04/2015 2:28 PM EDT Andrew Dai MA * Because of a physical, mental, or emotional condition, do you have difficulty doing errands alone such as visiting a doctor's office or shopping? Answer Date of Assessment Author No 02/04/2015 2:28 PM CALT Corbin Dai MA documented as of this encounter Mental Status * Because of a physical, mental, or emotional condition, do you have serious difficulty concentrating, remembering, or making decisions? Answer Entry Date Author No 02/04/2015 2:28 PM Andrew Petty MA documented in this encounter Plan of Treatment Not on file documented as of this encounter Visit Diagnoses Not on filedocumented in this encounter Care Teams Clinical Review Nurse Relationship Specialty Start Date End Date Albino Judd MD PCP - General Internal Medicine 09/27/13 documented as of this encounter
--- OUTSIDE RECORDS SUMMARY | 2025-07-04 18:19 | XMS_ITS | Encounter Summary ---
Author Organization [employer] [facility] tem Address [facility] [id number] [address] [place] [address] Care Team Providers Care Pumper Gauger Apprentice Name Role Phone Unavailable Primary Care Provider Unavailabl e Reason for Referral * Diagnostic Imaging (Routine) - Closed Specialty Diagnoses / Procedures Referred By Contac t Referred To Contact Radiology Diagnoses Vertigo Procedures MR brain without contrast Kulwinder Tanner MD [address] [place] [address] [address] [place] [address] Phone: tel: fax: Referral ID Status Reason Start Date Expiration Date Visits Re quested Visits Authorized [id number] Closed 05/24/2025 05/24/2026 1 1 Encounter Details Date Type Department Care Team (Late st Contact Info) Description 05/23/2025 Orders Only [facility] [address] [place] [phone] Kulwinder Tanner MD [address] [place] [address] [address] [place] [phone] Vertigo (Primary Dx) Social History Tobacco Use Types Packs/Day Years Used Date Smoking Tobacco: Former Cigarettes 0.5 20 Vaping/E-cigarettes Smokeless Tobacco: Never Comments:Currently uses E [...] Orientation Straight 06/26/2021 11 :02 PM EDT documented as of this encounter Plan of Treatment Not on file documented as of this encounter Results * MR brain without contrast (06/13/2025 [...] Lucius Ordoñez MD on 06/20/2025 6:19 PM Kulwinder Tanner MD IMG MRI ORDERABLES Final Resu lt documented in this encounter Visit Diagnoses Diagnosis Vertigo- Primary Dizziness and giddiness Vertigo Dizziness and giddiness documented in this encounter Additional Health Concerns Assessment Noted Time PHQ-9 Depression Total Score: 4 08/26/20 21 3:02 PM EDT documented as of this encounter
--- OUTSIDE RECORDS SUMMARY | 2025-07-04 18:19 | XMS_ITS | Encounter Summary ---
Author Organization [facility] Address [facility] [place] [address] Care Team Providers Care Tape Making Machine Operator Name Role Phone Albino Judd MD Primary Care Provider [phone] Source Comments In the event this information is protected by the Federal Confidentiality of Alcohol and Drug AbusePatient Records regulations: The Federal rules restrict any use of the information to criminally investigate or prosecute any alcohol or drug abuse patient.[facility] Encounter Details Date Type Department Care Team (Late st Contact Info) Description 02/03/2014 Patient Msg Medical Records [address] [place] [id number] Provider, [facility] RE: Request an Appointment Social History Tobacco Use Types Packs/Day Years Used Date Smoking Tobacco: Every Day Smokeless Tobacco: Never Alcohol Use Standard Drinks/Week [...] on filedocumented in this encounter Care Teams Tape Making Machine Operator Relationship Specialty Start Date End Date Albino Judd MD PCP - General Internal Medicine 09/27/13 documented as of this encounter
--- OUTSIDE RECORDS SUMMARY | 2025-07-04 18:19 | XMS_ITS | Clinical Summary ---
Author Organization [facility] Address [address] [facility], [address] [place] [address] Care Team Providers Care Copy Center Operator Name Role Phone Albino Judd MD Primary Care Provider + Allergies Active Allergy Reactions Criticality Noted Date Comments Amitriptyline Other (See Comments) 01/23/2014 Raises liver enzymes, high blood pressure, orthostatic intolerance Varenicline Other (See Comments) Medium 04/07/2018 Sleepwalking Codeine Other (See Comments) 04/15/2017 Genetic intolerance- high blood levels Diazepam Swelling 01/23/2014 Swelling of eyes Gabapentin Rash,Other (See Comments) Low 05/17/2013 White sores in mouth Lorazepam Swelling 04/15/2017 Metoclopramide Other (See Comments) 04/15/2017 Sleepwalking Morphine Other (See Comments) 04/15/2017 Genetic intolerance- high levels in blood Other Swelling 04/07/2018 Face swells when uses C-Pap mask Somatorelin Other (See Comments) 04/15/2017 Very high genetic intolerance- will produce high blood levels Topiramate Other (See Comments) Medium 05/17/2013 Arms went numb Zonisamide Swelling 01/23/2014 Swelling of eyes Medications estrogens, conjugated, (PREMARIN) 0.625 MG tablet Take 0.625 mg by mouth daily Active cetirizine (ZYRTEC) 10 MG tablet Take 10 mg by mouth daily Active baclofen (LIORESAL) 20 MG tablet Take 20 mg by mouth 3 times daily Active lisinopril (PRINIVIL;ZESTR IL) 10 MG tablet Take 10 mg by mouth daily Active levothyroxine (SYNTHROID) 75 MCG tablet Take 75 mcg by mouth Daily Active levothyroxine (SYNTHROID) 50 MCG tablet Take 50 mcg by mouth Daily Active montelukast (SINGULAIR) 10 MG tablet Take 10 mg by mouth nightly Active potassium chloride (KLOR-CON M) 20 MEQ extended release tablet Take 20 mEq by mouth 2 times daily Active Cholecalciferol (VITAMIN D3) 2000 units CAPS Take by mouth daily Active omeprazole (PRILOSEC) 20 MG delayed release capsule Take 20 mg by mouth daily Active OXcarbazepine (TRILEPTAL) 600 MG tablet Take 600 mg by mouth 2 times daily Active doxepin (SINEQUAN) 10 MG capsule Take 10 mg by mouth nightly Active pregabalin (LYRICA) 300 MG capsule Take 300 mg by mouth 2 times daily.. Active fluticasone (FLONASE) 50 MCG/ACT nasal spray 1 spray by Nasal route daily Active cycloSPORINE (RESTASIS) 0.05 % ophthalmic emulsion 1 drop 2 times daily Active docusate sodium (COLACE) 100 MG capsule Take 100 mg by mouth 2 times daily as needed for Constipation Active fentaNYL (DURAGESIC) 25 MCG/HR Place 1 patch onto the skin every 72 hours.. Active oxyCODONE-aceta minophen (PERCOCET) 7.5-325 MG per tablet Take 1 tablet by mouth every 4 hours as needed for Pain.. 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/2018): Hyper joint mobility- Type 3 Kyphosis 04/07/2018 Scoliosis 04/07/2018 Lordosis of cervicothoracic region 04/07/2018 Cervical nerve root compression 04/07/2018 Bone spur 04/07/2018 S/P nasal septoplasty 09/29/2017 Altered mental status 07/12/2017 Ira bullosa 07/07/2017 Chronic sinusitis 05/10/2017 Eustachian tube dysfunction 05/10/2017 Other intervertebral disc displacement, thoracic region 04/15/2017 Other spondylosis, thoracic region 04/15/2017 Radiculopathy, thoracolumbar region 04/15/2017 Spondylosis without myelopat hy or radiculopathy, lumbar region 04/15/2017 Meatal stenosis 02/02/2014 Mixed incontinence urge and stress (male)(female ) 02/02/2014 Nocturia 01/23/2014 Right flank pain 01/23/2014 Stress incontinence, female 01/23/2014 Urethral meatal stenosis 01/23/2014 Urinary frequency 01/23/2014 Hydronephrosis, right 05/17/2013 Family History Medical History Relation Name Comments Cancer Father skin Other Father COPD High Blood Pressure Mother Relation Name Status Comments Father Alive Mother Alive Social History Tobacco Use Types Packs/Day Years Used Date Smoking Tobacco: Every Day Smokeless Tobacco: Never Alcohol Use Standard Drinks/Week Comments Yes 0 (1 standard drink = 0.6 oz pur e alcohol) occasionally Comments No Sex and Gender Information Value Date Recorded Sex Assigned at Not on file Legal Sex Female 11:43 AM EDT Gender Identity Not on file Sexual Orientation Not on file Last Filed Vital Signs Vital Sign Reading Time Taken Comments Blood Pressure 117/62 04/20/2018 10:57 AM EDT Pulse 68 04/20/2018 10:57 AM EDT Temperature 36.6 C (97.8 F) 04/20/2018 9:56 AM EDT Respiratory Rate 16 04/20/2018 10:57 AM EDT Oxygen Saturation 96% 04/20/2018 10:57 AM EDT Inhaled Oxygen Concentration - - Weight 61.2 kg (135 lb) 04/07/2018 1:45 PM EDT Height 157.5 cm (5' 2 ) 04/07/2018 1:45 PM EDT Body Mass Index 24.69 04/07/2018 1:45 PM EDT Plan of Treatment Not on [place] [address] [facility] Care Teams Copy Center Operator Relationship Specialty Start Date End Date Albino Judd MD [address] [place] [address] PCP - General Family Medicine 03/25/18
--- OUTSIDE RECORDS SUMMARY | 2025-07-04 18:19 | XMS_ITS | Encounter Summary ---
Author Organization [facility] tem Address [id number] [address] [place] [address] Care Team Providers Care Corporate Driver Name Role Phone Albino Judd MD Primary Care Provider [phone] Encounter Details Date Type Department Care Team (Late st Contact Info) Description 08/26/2017 Telephone [facility] [address] [place] [place] [address] Imelda Mukherjee LPN Social History Tobacco Use Types Packs/Day Years Used Date Smoking Tobacco: Every Day Cigarettes Vaping/E-cigarettes Alcohol Use Standard Drinks/Week Comments No 0 (1 standard drink = 0.6 oz pur e alcohol) Comments No Sex and Gender Information Value [...] Date Last Indicated Resolved Time COVID-19 Rule-Out 08/02/2020 08/02/2020 08/02/2020 9:13 PM EDT COVID-19 Rule-Out 10/10/2022 10/10/2022 10/10/2022 5:46 PM EST documented as of this encounter Care Teams Corporate Driver Relationship Specialty Start Date End Date Albino Judd MD PCP - General 04/05/14 05/03/25 documented as of this encounter
[2025-07-04 18:47] LABS: Hematocrit 41.6 % (36.0-48.0); Hemoglobin 14.6 g/dL (12.0-16.0); Immature Granulocytes Abs Auto 0.03 10^3/uL (0.00-0.03); Immature Granulocytes Pct Auto 0.3 % (0.0-0.5); Lymphocytes Absolute Auto 3.0 10^3/uL (1.2-3.8); Mean Corpuscular HGB Conc 35.1 g/dL (29.9-35.2); Mean Corpuscular Hemoglobin 32.7 pg (26.7-34.0); Mean Corpuscular Volume 93.1 fL (81.0-99.0); Platelet Count 267 10^3/uL (150-450); Red Blood Count 4.47 10^6/uL (4.20-5.40); White Blood Count 9.5 10^3/uL (4.0-11.0)
[2025-07-04] MEDS: 0.9 % SODIUM CHLORIDE 1,000 ML 1000 ML IV (18:49)
[2025-07-04 19:02] LABS: Anion Gap 13.1; Blood Urea Nitrogen 9.0 mg/dL (7.0-18.0); Calcium 9.5 mg/dL (8.5-10.1); Carbon Dioxide 26.8 mmol/L (21.0-32.0); Chloride 105 mmol/L (98-107); Estimated GFR (African America >60 (>=60 mL/min/1.73m^2); Estimated GFR (Non-African Ame >60 (>=60 mL/min/1.73m^2); Glucose 104 mg/dL (74-106); Magnesium 1.7 mg/dL (1.8-2.4); Sodium 142 mmol/L (136-145)
[2025-07-04 19:09] LABS: Potassium 2.9 mmol/L (3.5-5.1)
[2025-07-04] MEDS: POTASSIUM CHLORIDE 10 MEQ ER TABLET 40 MEQ PO (19:49)
[2025-07-04 20:01] LABS: Cannabinoid Screen Urine POSITIVE (NEGATIVE); Methamphetamines Screen Urine NEGATIVE (NEGATIVE); Tricyclic Antidepressant Urine NEGATIVE (NEGATIVE)
== END 2025-07-04 20:42 | disposition home or self-care (01) ==
PROVIDERS: Internal Medicine; Emergency Provider Emergency Medicine; PCP Family Medicine
DX: R42 Dizziness and giddiness (principal); G90.A Postural orthostatic tachycardia syndrome [POTS]
CPT/HCPCS: 36415; 80048; 80307; 83735; 85025; 93005; 96360; 96361; 99285

== ENCOUNTER 2025-07-10 14:25 | Emergency (ER) | payer OTHER, SELFPAY ==
[2025-07-10] VITALS (18 sets, daily range): BP systolic 86–118; BP diastolic 65–73; PULSE 72–94; TEMP 37.1; O2SAT 94–99; BMI 19.0
--- OUTSIDE RECORDS SUMMARY | 2025-07-10 13:00 | XMS_ITS | Encounter Summary ---
Author Organization [facility] Address [address] [place] [address] Care Team Providers Care Repairer Recreational Vehicle Name Role Phone Albino Judd MD Primary Care Provider [phone] Albino Judd MD Unavailable Cristina Walter Unavailable Reason for Visit * Reason Comments Gynecologic Exam Encounter Details Date Type Department Care Team (Late st Contact Info) Description 07/10/2025 1:00 PM EDT Office Visit [facility] [address] [place] [address] Alice Reid PA [address] [place], [place] [id number] Well woman exam with routine gynecological exam; H/O: hysterectomy; Breast cancer screening by mammogram; Screen for STD (sexually transmitted disease); Hormone disorder Social History Tobacco Use Types Packs/Day Years [...] often do you attend chur ch or congregation services? 1 to 4 times per year 06/29/2024 Do you belong to any clubs o r organizations such as amish groups, unions, fraternal or athletic groups, or [...] medical care, and heating? Somewhat hard 06/29/2024 [facility] - Occupational Stress [...] any time in the past 12 m [facility], were you homeless or living in a correction (including now)? No 06/29/2024 Comments No Sex and Gender Information Value Date Recorded Sex Assigned at Not on file Legal Sex Female 8:23 PM EDT Gender Identity Not on file Sexual Orientation Not on file documented as of this encounter Last Filed Vital Signs Vital Sign Reading Time Taken Comments Blood Pressure 110/72 07/10/2025 1:35 PM EDT Pulse - - Temperature - - Respiratory Rate - - Oxygen Saturation - - Inhaled Oxygen Concentration - - Weight - - Height 157.5 cm (5' 2 ) 07/10/2025 1:35 PM EDT Body Mass Index - - documented in this encounter Progress Notes * ASHOK Neumann - 07/10/2025 1:00 PM EDT Reason for Appointment: Patient ID: Tori Soriano is a 55 y.o. female who presents for Gynecologic Exam Patient presents today for Annual Exam. MEDICATIONS Current Outpatient Medications Medication Instructions albuterol HFA 90 mcg/act inhaler 2 puffs, Inhalation, Every 4 hours PRN alendronate (FOSAMAX) 70 mg, Oral, Weekly baclofen (LIORESAL) 20 mg, Oral, 3 times daily PRN mexahjdlxa-dbwaajgzmyvta-ybfkgsqp 50-325-40 MG tablet 1 tablet, Oral, 4 times daily PRN cetirizine (ALLERGY RELIEF CETIRIZINE) 10 mg, Oral, Daily cholecalciferol (VITAMIN D-3) 50 mcg, Oral, Daily doxepin (SINEQUAN) 25 mg, Oral, Nightly fluticasone (Flonase) 50 MCG/ACT nasal spray 1 spray, Each Nostril, Daily, Shake gently. Before first use, prime pump. After use, clean tip and replace cap. ibuprofen 800 mg, Oral, 3 times daily levothyroxine (SYNTHROID, LEVOXYL) 75 mcg, Oral, Every morning, Take on an empty stomach. Lidocaine 4 % patch 1 patch, Every 24 hours liothyronine (CYTOMEL) 5 mcg, Oral, Daily, Take on an empty stomach. lisinopril 5 mg, Oral, Daily magnesium oxide (MAG-OX) 400 mg, Oral, 2 times daily meclizine (ANTIVERT) 25 mg, Oral, 4 times daily methylphenidate LA (RITALIN LA) 20 mg, Oral, Daily, Do not crush or chew. methylPREDNISolone (Medrol Dospak) 4 MG tablets follow package directions milnacipran (SAVELLA) 12.5 mg, Oral, 2 times daily montelukast (SINGULAIR) 10 mg, Oral, Daily omeprazole (PRILOSEC) 10 mg, Oral, 2 times daily before meals ondansetron ODT (ZOFRAN-ODT) 4 mg, Oral, Every 8 hours PRN OXcarbazepine (TRILEPTAL) 300 mg, Oral, 2 times daily OXcarbazepine (TRILEPTAL) 600 mg, Oral, 2 times daily oxybutynin XL (DITROPAN-XL) 10 mg, Oral, Daily, Do not crush, chew, or split. potassium chloride CR (K-Tab) 20 MEQ ER tablet 20 mEq, Oral, Daily, Do not crush, chew, or split. RIBOFLAVIN PO 200 mg, Oral, Twice a day (mid-day and evening) rizatriptan (MAXALT) 10 mg, Oral, Once as needed, May repeat in 2 hours if unresolved. Do not exceed 30 mg in 24 hours. sodium chloride 1 g tablet TAKE TWO (2) TABLETS BY MOUTH THREE TIMES PER DAY ALLERGIES Allergies Allergen Reactions Gabapentin Other, Rash and Unknown White sores in mouth Sores in mouth Other Reaction(s): Mouth ulcer Somatorelin Other Very high genetic intolerance- will produce high blood levels unknown Topiramate Itching, Other, Swelling and Unknown Arms went numb eyes Other Reaction(s): Unknown Reaction Varenicline Other and Unknown Sleepwalking Amitriptyline Other and Unknown Raises liver enzymes, high blood pressure, orthostatic intolerance High blood pressure Other Reaction(s): Unknown Reaction Carisoprodol Other Other Reaction(s): Unknown Reaction Codeine Other and Unknown Genetic intolerance- high blood levels Does not metabolize well Other Reaction(s): Unknown Reaction, Unknown Reaction Diazepam Swelling and Unknown Swelling of eyes eyes Other Reaction(s): Unknown Reaction Ketorolac Tromethamine Unknown Lorazepam Swelling and Unknown Metoclopramide Other Sleepwalking Made her sleep walk Other Reaction(s): Unknown Reaction Morphine Other and Unknown Genetic intolerance- high levels in blood Does not metabolize well Other Reaction(s): Unknown Oxazepam Other Reaction(s): Unknown Reaction Vitamin B2 [Riboflavin] Zonisamide Swelling and Unknown Swelling of eyes Other Reaction(s): Unknown Reaction PROBLEMS Active Ambulatory Problems Diagnosis Date Noted Primary insomnia 11/05/2023 GERD without esophagitis 05/22/2024 ADD (attention deficit disorder) without hyperactivity 06/30/2024 Arthralgia of hand 06/30/2024 Essential hypertension, benign 06/30/2024 Lower extremity edema 06/30/2024 Cervical spinal stenosis 06/30/2024 Herpes labialis 06/30/2024 Hypomagnesemia 06/30/2024 Hyponatremia 06/30/2024 Hypothyroidism, adult 06/30/2024 Irritable bowel syndrome with diarrhea 06/30/2024 Obstructive sleep apnea 06/30/2024 Osteoporosis 06/30/2024 POTS (postural orthostatic tachycardia syndrome) 06/30/2024 Allergic rhinitis due to pollen 06/30/2024 Vertigo 06/30/2024 Vitamin D deficiency 06/30/2024 Annual physical exam 06/30/2024 Small fiber neuropathy 06/30/2024 EDS (Niki-Danlos syndrome) ([facility]) 06/30/2024 Hypokalemia 08/24/2024 Insomnia, unspecified 08/24/2024 Anxiety disorder 08/24/2024 Disease of digestive system 08/24/2024 Mononeuritis Sleep apnea Disturbance of salivary secretion Depression Chronic bilateral low back pain with left-sided sciatica Hydronephrosis Hyperreflexia Neuropathy Memory loss Pseudodementia Disturbance of skin sensation Nondependent abuse of drugs ([facility]) Migraine without aura and without status migrainosus, not intractable 08/24/2024 DDD (degenerative disc disease), cervical 08/24/2024 Shortness of breath 08/31/2024 Bladder spasms 12/05/2024 Delusion (HCC) 05/29/2025 Resolved Ambulatory Problems Diagnosis Date Noted Chronic migraine without aura 06/30/2024 Late effect of poisoning due to drug, medicinal or biological substance Alteration of awareness Acute non-recurrent pansinusitis 12/05/2024 Acute UTI 12/05/2024 Past Medical History: Diagnosis Date Acute allergic rhinitis due to pollen Attention deficit disorder (ADD) in adult Back pain, lumbosacral Backache Benign essential HTN Bilateral hip pain Bilateral lower extremity edema Breast cancer screening by mammogram Bruit of left carotid artery Chronic migraine without aura without status migrainosus, not intractable Chronic sinusitis Ira bullosa Depression screening Deviated septum 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[facility]) Encounter for gynecological examination (general) (routine) without abnormal findings Encounter for long-term (current) drug use GERD (gastroesophageal reflux disease) Hypersomnia, unspecified Hypo-osmolality and hyponatremia Hypothyroidism Incontinence in female Insomnia long term care administrator (current) use of systemic steroids Neurocardiogenic syncope Other reduction deformities of brain ([facility]) Pancreatitis ([facility]) Post menopausal problems Post menopausal syndrome Postural orthostatic tachycardia syndrome (POTS) Snoring Spinal cord stimulator status Spondylosis Surgical menopause Thoracogenic scoliosis of thoracic region HISTORY PAST MEDICAL HISTORY SOCIAL HISTORY Past Medical History: Diagnosis Date Acute allergic rhinitis due to pollen Alteration of awareness Annual physical exam Anxiety disorder Attention deficit disorder (ADD) in adult Back pain, lumbosacral Backache Benign essential HTN Bilateral hip pain Bilateral lower extremity edema Breast cancer screening by mammogram Bruit of left carotid artery Cervical spinal stenosis Chronic migraine without aura without status migrainosus, not intractable Chronic sinusitis Ira bullosa Depression Depression screening Deviated septum Disease of digestive system Disturbance of salivary secretion Disturbance of skin sensation 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[facility]) Encounter for gynecological examination (general) (routine) without abnormal findings Encounter for long-term (current) drug use GERD (gastroesophageal reflux disease) Herpes labialis Hydronephrosis Hyperreflexia Hypersomnia, unspecified Hypo-osmolality and hyponatremia Hypokalemia Hypomagnesemia Hyponatremia Hypothyroidism Incontinence in female Insomnia Insomnia, unspecified Irritable bowel syndrome with diarrhea Late effect of poisoning due to drug, medicinal or biological substance FDC (current) use of systemic steroids Memory loss Mononeuritis Neurocardiogenic syncope Neuropathy Nondependent abuse of drugs ([facility]) tobacco use disorder Obstructive sleep apnea Osteoporosis Other reduction deformities of brain (HCC) Pancreatitis ([facility]) Post menopausal problems Post menopausal syndrome Postural orthostatic tachycardia syndrome (POTS) Pseudodementia Sleep apnea Small fiber neuropathy Snoring Spinal cord stimulator status Spondylosis Surgical menopause Thoracogenic scoliosis of thoracic region Vertigo Vitamin D deficiency Social History Tobacco Use Smoking status: Every Day Types: Cigarettes Smokeless tobacco: Never Vaping Use Vaping status: Every Day Substance Use Topics Alcohol use: Yes Comment: Occasional alcohol Drug use: Never Comment: Denies drug use FAMILY HISTORY Family History Problem Relation Name Age of Onset Hypertension Mother COPD Father Skin cancer Father Hypertension Other SURGICAL HISTORY Past Surgical History: Procedure Laterality Date APPENDECTOMY 12/14/2014 BACK SURGERY 2013 SECTION, LOW TRANSVERSE CHOLECYSTECTOMY 08/28/2014 DILATION AND EVACUATION Urethral dilation HYSTERECTOMY 09/29/2013 LAMINECTOMY THORACIC SPINE W/ PLACEMENT SPINAL CORD STIMULATOR LAPAROSCOPIC HYSTERECTOMY PELVIC LAPAROSCOPY RENAL ARTERY STENT SPINAL CORD STIMULATOR IMPLANT 05/29/2014 SPINAL FUSION Neck TONSILLECTOMY 1982 TUBAL LIGATION Laparoscopy URETERAL STENT PLACEMENT URETERAL STENT PLACEMENT REVIEW OF SYSTEMS Review of Systems: Review of Systems Constitutional: Negative. HENT: Negative. Eyes: Negative. Respiratory: Negative. Cardiovascular: Negative. Gastrointestinal: Negative. Genitourinary: Negative. Musculoskeletal: Negative. Skin: Negative. Neurological: Negative. All other systems reviewed and are negative. Hematological: Negative. Endocrine: Negative. Allergic/Immunologic: Negative. OBJECTIVE Objective: Physical Exam Constitutional: Appearance: Normal appearance. She is well-developed. Genitourinary: Vulva normal. Right Adnexa: not tender and no mass present. Left Adnexa: not tender and no mass present. No cervical discharge. Breasts: Breasts are soft. Right: Normal. Left: Normal. HENT: Head: Normocephalic. Nose: Nose normal. Mouth/Throat: Mouth: Mucous membranes are moist. Cardiovascular: Rate and Rhythm: Normal rate and regular rhythm. Pulmonary: Effort: Pulmonary effort is normal. Breath sounds: Normal breath sounds. Abdominal: General: Bowel sounds are normal. There is no distension. Palpations: Abdomen is soft. Tenderness: There is no abdominal tenderness. There is no guarding or rebound. Musculoskeletal: General: No swelling. Normal range of motion. Cervical back: Normal range of motion. Right lower leg: No edema. Left lower leg: No edema. Neurological: General: No focal deficit present. Mental Status: She is alert and oriented to person, place, and time. Skin: General: Skin is warm and dry. Psychiatric: Mood and Affect: Mood normal. Behavior: Behavior normal. Vitals and nursing note reviewed. Exam conducted with a service department manager present. Vitals: Estimated body mass index is 18.29 kg/m?? as calculated from the following: Height as of 05/29/25: 5' 2 . Weight as of 05/29/25: 100 lb. BP: No LMP recorded. ASSESSMENT & PLAN ICD-10-CM 1. Well woman exam with routine gynecological exam Z01.419 THIN PREP TIS PAP AND HR HPV DNA 2. H/O: hysterectomy Z90.710 THIN PREP TIS PAP AND HR HPV DNA 3. Breast cancer screening by mammogram Z12.31 Bilateral screening mammogram Bilateral screening mammogram Annual: Patient presents today for an annual exam. Patient states she is doing well and has no complaints. Pap was obtained without difficulty and patient given mammogram order to have scheduled/obtained. Orders Placed This Encounter Procedures Bilateral screening mammogram Follow Up: Patient is to return in one year for annual unless needed otherwise. Documented by Alexys Trevino MA on behalf of: ASHOK Neumann documented in this encounter Miscellaneous Notes * Addendum Note - Alexys Trevino MA - 07/10/2025 1:00 PM EDTAddended by: ALEXYS TREVINO on: 07/10/2025 02:01 PM Modules accepted: Orders documented in this encounter Plan of Treatment Upcoming Encounters Date Type Department Care Team (Late st Contact Info) Description 07/31/2025 2:30 PM EDT Office Visit [facility] [address] [place] [address] Albino Judd MD [address] [place] [address] Scheduled Orders Name Type Priority Associated Diagnoses Orde r Schedule Bilateral screening mammogram Imaging Routine Breast cancer screening by mammogram Expected: 07/10/2025, Expires: 09/09/2026 THIN PREP TIS PAP AND HR HPV DNA Pathology and Cytology Routine Well woman exam with routine gynecological exam H/O: hysterectomy Ordered: 07/10/2025 SURESWAB(R) ADVANCED VAGINITIS PLUS, TMA Pathology and Cytology Routine Screen for STD (sexually transmitted disease) Ordered: 07/10/2025 CHLAMYDIA TRACHOMATIS (GENITO/STI) Lab Routine Screen for STD (sexually transmitted disease) Ordered: 07/10/2025 Neisseria gonorrhea DNA probe, direct Lab Routine Screen for STD (sexually transmitted disease) Ordered: 07/10/2025 Estradiol Lab Routine Hormone disorder Ordered: 07/10/2025 Estrone Lab Routine Hormone disorder Ordered: 07/10/2025 Cortisol, free Lab Routine Hormone disorder Expected: 07/10/2025 (Approximate), Expires: 07/10/2026 DHEA-sulfate Lab Routine Hormone disorder Ordered: 07/10/2025 Sex hormone binding globulin Lab Routine Hormone disorder Ordered: 07/10/2025 Insulin, total Lab Routine Hormone disorder Expected: 07/10/2025 (Approximate), Expires: 07/10/2026 Serotonin serum Lab Routine Hormone disorder Expected: 07/10/2025 (Approximate), Expires: 07/10/2026 TSH Lab Routine Hormone disorder Ordered: 07/10/2025 T4, free Lab Routine Hormone disorder Ordered: 07/10/2025 T3, reverse Lab Routine Hormone disorder Ordered: 07/10/2025 Progesterone Lab Routine Hormone disorder Ordered: 07/10/2025 Vitamin D 1,25 dihydroxy Lab Routine Hormone disorder Ordered: 07/10/2025 Ferritin Lab Routine Hormone disorder Ordered: 07/10/2025 T3, free Lab Routine Hormone disorder Ordered: 07/10/2025 Thyroglobulin Lab Routine Hormone disorder Expected: 07/10/2025 (Approximate), Expires: 07/10/2026 Thyroglobulin Antibody Lab Routine Hormone disorder Expected: 07/10/2025 (Approximate), Expires: 07/10/2026 Thyroid peroxidase antibody Lab Routine Hormone disorder Ordered: 07/10/2025 T4 Lab Routine Hormone disorder Expected: 07/10/2025 (Approximate), Expires: 07/10/2026 TESTOSTERONE, FREE Lab Routine Hormone disorder Ordered: 07/10/2025 Testosterone, free, total Lab Routine Hormone disorder Ordered: 07/10/2025 Hemoglobin A1c Lab Routine Hormone disorder Ordered: 07/10/2025 Glucose, random Lab Routine Hormone disorder Expected: 07/10/2025 (Approximate), Expires: 07/10/2026 C-peptide Lab Routine Hormone disorder Expected: 07/10/2025 (Approximate), Expires: 07/10/2026 documented as of this encounter Goals Goal Patient Goal Type Associated Problems Recent Progress Patient-Stated? Author Help patient manage antidepressant medication Care Plan Patient on antidepressant monitoring plan No Nearhood, Roxanne Baseline PHQ-9 Care Plan Baseline PHQ-9 No Nearhood, Roxanne documented as of this encounter Visit Diagnoses Diagnosis Well woman exam with routine gynecological exam Routine gynecological examination H/O: hysterectomy Acquired absence of both cervix and uterus Breast cancer screening by mammogram Screen for STD (sexually transmitted disease) Screening examination for venereal disease Hormone disorder Unspecified endocrine disorder documented in this encounter Additional Health Concerns Active Problems Noted Date Diagnosed Date Patient on antidepressant monitoring plan 2024 Baseline PHQ-9 03/28/2025 documented as of this encounter Care Teams Repairer Recreational Vehicle Relationship Specialty Start Date End Date Albino Judd MD [address] [place] [address] PCP - General Family Medicine 06/30/24 Albino Judd MD [address] [place] [address] PCP - Medical [employer] 08/29/24 11/28/99 Cristina Walter PA [address] [place] [address] Physician Teaseler Neurology 03/13/25 documented as of this encounter
--- OUTSIDE RECORDS SUMMARY | 2025-07-10 14:31 | XMS_ITS | Encounter Summary ---
Author Organization [facility] Address [address] [place] [address] Care Team Providers Care Hand Umbrella Tipper Name Role Phone Albino Judd MD Primary Care Provider [phone] Albino Judd MD Primary Care Provider [phone] Marjorie Wiley RN Unavailable [phone] Albino Judd MD Unavailable Cristina Walter Unavailable Encounter Details Date Type Department Care Team (Late st Contact Info) Description 04/19/2023 Abstract [facility] [address] [address] Raymundo Fleming MD [address] [place] [address] Social History Tobacco Use Types Packs/Day Years [...] Encounters Date Type Department Care Team (Late Contact Info) Description 07/31/2025 2:30 PM EDT [facility] [address] [place] [phone] Albino Judd MD [address] [place] [address] documented as of this encounter Visit Diagnoses Not on filedocumented in this encounter Care Teams Hand Umbrella Tipper Relationship Specialty Start Date End Date Albino Judd MD PCP - General Family Medicine 06/25/23 06/29/24 Albino Judd MD [address] [place] [address] PCP - General Family Medicine 06/30/24 Albino Judd MD [address] [place] [address] PCP - Medical [employer] 08/29/24 11/28/99 Marjorie Wiley, RN [address] [place] [address] Registered Nurse Family Medicine 09/18/24 07/06/25 Cristina Walter PA [address] [place] [address] Physician President & Founder Neurology 03/13/25 documented as of this encounter
--- OUTSIDE RECORDS SUMMARY | 2025-07-10 14:31 | XMS_ITS | Encounter Summary ---
Author Organization [facility] Address [address] [place] [address] Care Team Providers Care Antique Finisher Name Role Phone Albino Judd MD Primary Care Provider [phone] Marjorie Wiley RN Unavailable [phone] Albino Judd MD Unavailable Cristina Walter Unavailable Reason for Visit * Reason Comments Med Refill Encounter Details Date Type Department Care Team (Late st Contact Info) Description 06/27/2025 Refill [facility] [address] [place] [phone] Anali Lennon MD [address] [place] [address] Hypothyroidism, adult Social History Tobacco Use Types Packs/Day Years [...] often do you attend chur ch or yazdanism services? 1 to 4 times per year 06/29/2024 Do you belong to any clubs o r organizations such as anabaptism groups, unions, fraternal or athletic groups, or [...] medical care, and heating? Somewhat hard 06/29/2024 [facility] - Occupational [...] any time in the past 12 m [facility], were you homeless or living in a longterm (including now)? No 06/29/2024 Comments Unknown Sex and Gender Information Value Date Recorded Sex Assigned at Not on file Legal Sex Female 8:23 PM EDT Gender Identity Not on file Sexual Orientation Not on file documented as of this encounter Miscellaneous Notes * Telephone Encounter - Suzanne Freeman LPN - 06/28/2025 8:11 AM EDT MEDICATION SENT TO PHARMACY. documented in this encounter Plan of Treatment Upcoming Encounters Date Type Department Care Team (Late st Contact Info) Description 07/31/2025 2:30 PM EDT Office Visit [facility] [address] [place] [address] Albino Judd MD [address] [place] [address] documented as of this encounter Goals Goal Patient Goal Type Associated Problems Recent Progress Patient-Stated? Author Help patient manage antidepressant medication Care Plan Patient on antidepressant monitoring plan No Nearhood, Roxanne Baseline PHQ-9 Care Plan Baseline PHQ-9 No NearhoodRoxanne documented as of this encounter Visit Diagnoses Diagnosis Hypothyroidism, adult Other specified acquired hypothyroidism documented in this encounter Additional Health Concerns Active Problems Noted Date Diagnosed Date Patient on antidepressant monitoring plan 2024 Baseline PHQ-9 03/28/2025 documented as of this encounter Care Teams Antique Finisher Relationship Specialty Start Date End Date Albino Judd MD [address] [place] [address] PCP - General Family Medicine 06/30/24 Albino Judd MD [address] [place] [address] PCP - Medical [place] [employer] 08/29/24 11/28/99 Marjorie Wiley, LUCY [address] [place] [address] Registered Nurse Family Medicine 09/18/24 07/06/25 Cristina Walter PA [address] [place] [address] Physician Interior Decorator Neurology 03/13/25 documented as of this encounter
--- OUTSIDE RECORDS SUMMARY | 2025-07-10 14:31 | XMS_ITS | Encounter Summary ---
Author Organization [facility] Address [address] [place] [address] Care Team Providers Care Honeycomb Decapper Name Role Phone Albino Judd MD Primary Care Provider [phone] Albino Judd MD Primary Care Provider [phone] Marjorie Wiley RN Unavailable [phone] Albino Judd MD Unavailable Cristina Walter Unavailable Encounter Details Date Type Department Care Team (Late st Contact Info) Description 04/07/2024 Abstract [facility] [address] [place] [address] Albino Judd MD [address] [place] [address] Social History Tobacco Use Types Packs/Day Years [...] 07/31/2025 2:30 PM EDT Office Visit [facility] [address] [place] [address] Albino Judd MD [address] [place] [address] documented as of this encounter Visit Diagnoses Not on filedocumented in this encounter Care Teams Honeycomb Decapper Relationship Specialty Start Date End Date Albino Jdud MD PCP - General Family Medicine 06/25/23 06/29/24 Albino Judd MD [address] [place] [address] PCP - General Family Medicine 06/30/24 Albino Judd MD [address] [place] [address] PCP - Medical [place] [employer] 08/29/24 11/28/99 Marjorie Wiley, LUCY [address] [place] [address] Registered Nurse Family Medicine 09/18/24 07/06/25 Cristina Walter PA [address] [place] [address] Physician Freight Hustler Neurology 03/13/25 documented as of this encounter
--- OUTSIDE RECORDS SUMMARY | 2025-07-10 14:31 | XMS_ITS | Clinical Summary ---
Author Organization [facility] Address [address] [place] [address] Care Team Providers Care Supervisor Fusing Room Name Role Phone Albino Judd MD Primary Care Provider [phone] Albino Judd MD Unavailable Cristina Walter Unavailable Allergies Active Allergy Reactions Criticality Noted Date Comments Amitriptyline Other,Unknown 01/23/2014 Raises liver enzymes, high blood pressure, orthostatic intolerance High blood pressure Other Reaction(s): Unknown Reaction Carisoprodol Other 06/30/2024 Other Reaction(s): Unknown Reaction Codeine Other,Unknown 04/15/2017 Genetic intolerance- high blood levels Does not metabolize well Other Reaction(s): Unknown Reaction, Unknown Reaction Diazepam Swelling,Unknown 01/23/2014 Swelling of eyes eyes Other Reaction(s): Unknown Reaction Gabapentin Other,Rash,Unknown High 05/17/2013 White sores in mouth Sores in mouth Other Reaction(s): Mouth ulcer Ketorolac Tromethamine Unknown 06/30/2024 Lorazepam Swelling,Unknown 04/15/2017 Metoclopramide Other 04/15/2017 Sleepwalking Made her sleep walk Other Reaction(s): Unknown Reaction Morphine Other,Unknown 04/14/2017 Genetic intolerance- high levels in blood Does not metabolize well Other Reaction(s): Unknown Oxazepam 07/10/2025 Other Reaction(s): Unknown Reaction Somatorelin Other High 04/15/2017 Very high genetic intolerance- will produce high blood levels unknown Topiramate Itching,Other,Swell ing,Unknown Medium 05/17/2013 Arms went numb eyes Other Reaction(s): Unknown Reaction Varenicline Other,Unknown Medium 04/07/2018 Sleepwalking Riboflavin 05/29/2025 Zonisamide Swelling,Unknown 01/23/2014 Swelling of eyes Other Reaction(s): Unknown Reaction Medications ibuprofen 800 MG tabletIndications :Small fiber [...] as needed for headaches 60 tablet 2 Active OXcarbazepine (Trileptal) 300 MG tabletIndications :Migraine without status migrainosus, not intractable, unspecified migraine type Take 1 tablet (300 mg) by mouth in the morning and 1 tablet (300 mg) before bedtime. 30 tablet 2 Active albuterol HFA 90 mcg/act inhalerIndication s:Shortness of breath Inhale 2 puffs every 4 (four) hours if needed for wheezing or shortness of breath 18 g 3 024 Active omeprazole (PriLOSEC) [address] capsuleIndication [...] mcg) by mouth Daily 30 tablet 11 024 Active potassium chloride CR (K-Tab) 20 MEQ ER tabletIndications :Hyponatremia Take 1 tablet (20 mEq) by mouth Daily Do not crush, chew, or split. 30 tablet 11 024 Active sodium chloride 1 g tabletIndications :Hyponatremia TAKE TWO (2) TABLETS BY MOUTH THREE TIMES PER DAY 180 tablet 10 024 Active alendronate (Fosamax) 70 MG tabletIndications :Age-related osteoporosis without current pathological fracture TAKE 1 TABLET BY MOUTH ONCE A WEEK 4 tablet 024 Active liothyronine (Cytomel) 5 MCG tabletIndications :Hypothyroidism, adult TAKE 1 TABLET BY MOUTH DAILY ON AN EMPTY STOMACH 30 tablet 025 Active magnesium oxide (Mag-Ox) 400 MG [...] BY MOUTH FOUR TIMES DAILY 120 tablet 025 Active lisinopril 5 MG tabletIndications :Essential hypertension, benign TAKE 1 TABLET BY MOUTH DAILY 30 tablet 025 Active RIBOFLAVIN PO Take 200 mg [...] by mouth at bedtime 30 capsule 5 Active baclofen (Lioresal) 20 MG tabletIndications :Cervical spinal stenosis Take 1 tablet (20 mg) by mouth 3 (three) times a day as needed for muscle spasms 90 tablet 3 Active Lidocaine 4 % patch Place 1 [...] DAILY 30 tablet 024 2024 Discontinued(R eorder) fluticasone (Flonase) 50 MCG/ACT nasal sprayIndications: Gastroesophageal reflux disease without esophagitis INSTILL ONE (1) SPRAY IN EACH NOSTRIL DAILY NEEDED FOR RHINITIS 16 g 5 Discontinued(R eorder) Allergy Relief Cetirizine 10 MG tabletIndications :Gastroesophageal reflux disease without esophagitis TAKE 1 TABLET BY MOUTH DAILY 30 tablet 10 024 2024 Discontinued(R eorder) Atogepant (Qulipta) 60 MG tabletIndications :Migraine without status migrainosus, not intractable, unspecified migraine type Take 1 tablet by mouth Daily 90 tablet 2 025 2024 Active Problems Problem Noted Date [...] neuropathy. EMG was normal and QSART in 2016. She had normal brain MRI 09/2017 and [...] Encounters Date Type Department Care Team Description 07/10/2025 1:00 PM EDT Office Visit [facility] [address] [place] [address] Alice Reid PA Well woman exam with routine gynecological exam; H/O: hysterectomy; Breast cancer screening by mammogram; Screen for STD (sexually transmitted disease); Hormone disorder 07/10/2025 Telephone [facility] [address] [place] [address] [place] [address] Zarina Glover MA 07/10/2025 Bamboo flowsheet [facility] [address] [place] [address] [place] [address] Alice Reid PA 07/06/2025 Patient Outreach [facility] [address] [place] [address] Marjorie Wiley RN 06/28/2025 Refill [facility] [address] [place] [address] Albino Judd MD Gastroesophageal reflux disease without esophagitis 06/27/2025 Refill [facility] [address] [place] [address] Anali Lennon MD Hypothyroidism, adult 05/29/2025 3:15 PM EDT Office Visit [facility] [address] [place] [address] Albino Judd MD Delusion (HCC) (Primary Dx); ADD (attention deficit disorder) without hyperactivity; Chronic bilateral low back pain with left-sided sciatica 05/29/2025 Bamboo flowsheet [facility] [address] [place] [address] Albino Judd MD 05/25/2025 Patient Outreach [address] [place] [address] Marjorie Wiley RN 05/18/2025 Refill [facility] [address] [place] [address] Albino Judd MD 05/09/2025 Patient Outreach [place] [address] [place] [address] Josy Carney MA 05/08/2025 Telephone [facility] [address] [place] [address] Albino Judd MD 05/08/2025 Patient Outreach [address] [address] Josy Carney MA 05/07/2025 Telephone [facility] [address] [place] [address] Albino Judd MD Referral 05/04/2025 Telephone [facility] [address] [place] [address] Albino Judd MD 04/17/2025 4:00 PM EDT Evaluation [address] [place] [address] Rigo Delgado, PT Cervical spinal stenosis (Primary Dx); Vertigo; Small fiber neuropathy; POTS (postural orthostatic tachycardia syndrome) 04/17/2025 Plan of Care Documentation [address] [place] [address] 04/17/2025 Bamboo flowsheet [facility] [address] [place] [address] Rigo Delgado, PT 04/17/2025 Travel from Last 3 Months Family History Medical [...] 06/29/2024 How often do you attend chur or orthodox services? 1 to 4 times per year 06/29/2024 Do you belong to any clubs o r organizations such as rastafari groups, unions, fraternal or athletic groups, or [...] medical care, and heating? Somewhat hard 06/29/2024 [facility] of Occupat ional Health - Occupational Stress [...] any time in the past 12 m [facility], were you homeless or living in a chcf (including now)? No 06/29/2024 Comments No Sex and Gender Information Value Date Recorded Sex Assigned at Not on file Legal Sex Female 8:23 PM EDT Gender Identity Not on file Sexual Orientation Not on file Last Filed Vital Signs Vital Sign Reading Time Taken Comments Blood Pressure 110/72 07/10/2025 1:35 PM EDT Pulse 139 05/29/2025 3:30 PM EDT Temperature 36.2 C (97.1 F) 05/29/2025 3:30 PM EDT Respiratory Rate 20 05/29/2025 3:30 PM EDT Oxygen Saturation 95% 05/29/2025 3:30 PM EDT Inhaled Oxygen Concentration - - Weight 45.4 kg (100 lb) 05/29/2025 3:30 PM EDT Height 157.5 cm (5' 2 ) 07/10/2025 1:35 PM EDT Body Mass Index 18.29 05/29/2025 3:30 PM EDT Plan of Treatment Upcoming Encounters Date Type Department Care Team (Late st Contact Info) Description 07/31/2025 2:30 PM EDT Office Visit [facility] [address] [place] [address] Albino Judd MD [address] [place] [address] Health Maintenance Due Date Last Done Comments [...] AM EDT THIS EXAM WAS PERFORMED AT [facility] TORI RAM 1970 [id number] EXAM: MAMM SCREENING BILATERAL W CAD, 08/25/2024 [...] 9:32 AM 1 b MAMM 1 YR FDA Accredited Performing Facility: [facility] [address] [facility] [address] Procedure Note Radiology, Radiologist, MD - 08/28/2024 THIS EXAM WAS PERFORMED AT [facility] TORI RAM 1970 [id number] EXAM: MAMM SCREENING BILATERAL W CAD, 08/25/2024 [...] 9:32 AM 1 b MAMM 1 YR FDA Accredited Performing Facility: [facility] [address] [facility] [address] Albino Judd MD IMG BI PROCEDURES Final Result from Last 3 Months or Most Recently Relevant to Health Maintenance Additional Health Concerns Active Problems Noted Date Diagnosed Date Patient on antidepressant monitoring plan 2024 Baseline PHQ-9 03/28/2025 Insurance [employer] Care Teams Supervisor Fusing Room Relationship Specialty Start Date End Date Albino Judd MD [address] [place] [address] PCP - General Family Medicine 06/30/24 Albino Judd MD [address] [place] [address] PCP - Medical [place] [employer] 08/29/24 11/28/99 Cristina Walter PA [address] [place] [address] Physician Wire Spiral Binder Neurology 03/13/25
--- OUTSIDE RECORDS SUMMARY | 2025-07-10 14:31 | XMS_ITS | Encounter Summary ---
Author Organization [facility] Address [address] [place] [address] Care Team Providers Care Executive Vice President And Chief Operating Officer Name Role Phone Albino Judd MD Primary Care Provider [phone] Marjorie Wiley RN Unavailable [phone] Albino Judd MD Unavailable Cristina Walter Unavailable Reason for Visit * Reason Onset Date Comments Med Refill 06/28/2025 Encounter Details Date Type Department Care Team (Late st Contact Info) Description 06/28/2025 [facility] [address] [place] [address] Albino Judd MD [address] [place] [address] Gastroesophageal reflux disease without esophagitis Social History [...] often do you attend chur ch or mormonism services? 1 to 4 times per year 06/29/2024 Do you belong to any clubs o r organizations such as religious groups, unions, fraternal or athletic groups, or [...] medical care, and heating? Somewhat hard 06/29/2024 [facility] of Occupat ional Health - Occupational Stress [...] any time in the past 12 m [facility], were you homeless or living in a correction (including now)? No 06/29/2024 Comments Unknown Sex and Gender Information Value Date Recorded Sex Assigned at Not on file Legal Sex Female 8:23 PM EDT Gender Identity Not on file Sexual Orientation Not on file documented as of this encounter Miscellaneous Notes * Telephone Encounter - [facility] - 06/28/2025 9:47 AM EDT MEDICATION SENT TO [facility] documented in this encounter Plan of Treatment Upcoming Encounters Date Type Department Care Team (Late st Contact Info) Description 07/31/2025 2:30 PM EDT [facility] [address] [place] [address] Albino Judd MD [address] [place] [address] documented as of this encounter Goals Goal [...] documented as of this encounter Care Teams Executive Vice President And Chief Operating Officer Relationship Specialty Start Date End Date Albino Judd MD [address] [place] [address] PCP - General Family Medicine 06/30/24 Albino Judd MD [address] [place] [address] PCP - Medical [place] [employer] 08/29/24 11/28/99 Marjorie Wiley, LUCY [address] [place] [address] Registered Nurse Family Medicine 09/18/24 07/06/25 Cristina Walter PA [address] [place] [address] Physician Hr Administrator Neurology 03/13/25 documented as of this encounter
--- OUTSIDE RECORDS SUMMARY | 2025-07-10 14:32 | XMS_ITS | Encounter Summary ---
Author Organization [facility] Address [facility] [place] [address] Care Team Providers Care Cutting Machine Tender Decorative Name Role Phone Albino Judd MD Primary Care Provider [phone] Source Comments In the event this information is protected by the Federal Confidentiality of Alcohol and Drug AbusePatient Records regulations: The Federal rules restrict any use of the information to criminally investigate or prosecute any alcohol or drug abuse patient.[facility] Encounter Details Date Type Department Care Team (Late st Contact Info) Description 02/03/2014 Patient Msg Medical Records [address] [place] [address] Provider, Ccf RE: Request an Appointment Social [...] on filedocumented in this encounter Care Teams Cutting Machine Tender Decorative Relationship Specialty Start Date End Date Albino Judd MD PCP - General Internal Medicine 09/27/13 documented as of this encounter
--- OUTSIDE RECORDS SUMMARY | 2025-07-10 14:32 | XMS_ITS ---
Author Organization [facility] Address [address] [facility] [place] [address] Care Team Providers Care Heading Repairer Name Role Phone Albino Judd MD Primary Care Provider [phone] Albino Judd MD Unavailable Cristina Walter Unavailable Emergency Department Transitional Care Management (TCM) Status:Enrolled (Active) Start date:07/04/2025 Enrollment date:07/06/2025 Enrollment reason:Identified using hospital discharge data Overview Discharged from [facility] ER on 07/04. Please contact within 2 days of discharge for ERTOC and schedule a follow-up appointment if needed. Case Team Name Relationship Phone Marjorie Wiley RN(Responsible Staff) Registered Nurse [phone] Continued Care and Services Coordination
--- OUTSIDE RECORDS SUMMARY | 2025-07-10 14:32 | XMS_ITS | Encounter Summary ---
Author Organization [facility] tem Address [id number] [address] [place] [address] Care Team Providers Care Hazardous Waste Management Specialist Name Role Phone Unavailable Primary Care Provider Unavailabl e Reason for Referral * Diagnostic Imaging (Routine) - Closed Specialty Diagnoses / Procedures Referred By Contac t Referred To Contact Radiology Diagnoses Vertigo Procedures MR brain without contrast Kulwinder Tanner MD [address] [place] [address] [address] [place] [address] Phone: tel: fax: Referral ID Status Reason Start Date Expiration Date Visits Re quested Visits Authorized [id number] Closed 05/24/2025 05/24/2026 1 1 Encounter Details Date Type Department Care Team (Late st Contact Info) Description 05/23/2025 Orders Only [facility] [address] [place] [address] Kulwinder Tanner MD [address] [place] [address] [address] [place] [address] Vertigo (Primary Dx) Social History Tobacco [...]
--- OUTSIDE RECORDS SUMMARY | 2025-07-10 14:32 | XMS_ITS | Encounter Summary ---
Author Organization [facility] Address [address] [place] [address] Care Team Providers Care Crab Steamer Name Role Phone Albino Judd MD Primary Care Provider [phone] Source Comments In the event this information is protected by the Federal Confidentiality of Alcohol and Drug AbusePatient Records regulations: The Federal rules restrict any use of the information to criminally investigate or prosecute any alcohol or drug abuse patient.[facility] Encounter Details Date Type Department Care Team (Late st Contact Info) Description 01/29/2025 Patient Msg Neurology [id number] Fish Vela MD [address] [place] [address] Migraine and diet handout Social [...] is lower risk 7 12/12/2024 Data from: https://www.neighborhoodatlas.medicine.[facility]/. Last address used for calculation Xander ALFRED [...] Assessment Author No 02/04/2015 2:28 PM [facility] Andrew Dai MA documented as of this encounter [...] on filedocumented in this encounter Care Teams Crab Steamer Relationship Specialty Start Date End Date Albino Judd MD PCP - General Internal Medicine 09/27/13 documented as of this encounter
--- OUTSIDE RECORDS SUMMARY | 2025-07-10 14:32 | XMS_ITS | Encounter Summary ---
Author Organization [facility] Address [id number] [address] [place] [address] Care Team Providers Care Director Of Enterprise Applications Name Role Phone Albino Judd MD Primary Care Provider [phone] Encounter Details Date Type Department Care Team (Late st Contact Info) Description 06/30/2021 Telephone [facility] [address] [place] [address] Tammie Schmidt Social History Tobacco [...] documented as of this encounter Care Teams Director Of Enterprise Applications Relationship Specialty Start Date End Date Albino Judd MD PCP - General 04/05/14 05/03/25 documented as of this encounter
--- OUTSIDE RECORDS SUMMARY | 2025-07-10 14:32 | XMS_ITS | Encounter Summary ---
Author Organization [facility] Address [address] [place] [address] Care Team Providers Care Youth Services Specialist Name Role Phone Albino Judd MD Primary Care Provider [phone] Albino Judd MD Unavailable Cristina Walter Unavailable Encounter Details Date Type Department Care Team (Late st Contact Info) Description 07/10/2025 Telephone [facility] [address] [place] [place] [address] Zarina Glover MA [address] [place] [address] Social History Tobacco Use Types Packs/Day Years [...] How often do you attend chur or anabaptist services? 1 to 4 times per year 06/29/2024 Do you belong to any clubs o r organizations such as latter day groups, unions, fraternal or athletic groups, or [...] medical care, and heating? Somewhat hard 06/29/2024 [facility] Occupat ional Health - Occupational Stress [...] any time in the past 12 m [place], were you homeless or living in a half-way (including now)? No 06/29/2024 Comments No Sex and Gender Information Value Date Recorded Sex Assigned at Not on file Legal Sex Female 8:23 PM EDT Gender Identity Not on file Sexual Orientation Not on file documented as of this encounter Plan of Treatment Upcoming Encounters Date Type Department Care Team (Late st Contact Info) Description 07/31/2025 2:30 PM EDT Office Visit [facility] [address] [place] [address] Albino Judd MD [address] [place] [address] documented as of this encounter Goals Goal Patient Goal Type Associated Problems Recent Progress Patient-Stated? Author Help patient manage antidepressant medication Care Plan Patient on antidepressant monitoring plan No Nearhood, Roxanne Baseline PHQ-9 Care Plan Baseline PHQ-9 No Nearhood, Roxanne documented as of this encounter Visit Diagnoses Diagnosis Screen for STD (sexually transmitted disease) Screening examination for venereal disease documented in this encounter Additional Health Concerns Active Problems Noted Date Diagnosed Date Patient on antidepressant monitoring plan 2024 Baseline PHQ-9 03/28/2025 documented as of this encounter Care Teams Youth Services Specialist Relationship Specialty Start Date End Date Albino Judd MD [address] [place] [address] PCP - General Family Medicine 06/30/24 Albino Judd MD [address] [place] [address] PCP - Medical [place] [employer] 08/29/24 11/28/99 Cristina Walter PA [address] [place] [address] Physician [employer] Neurology 03/13/25 documented as of this encounter
--- OUTSIDE RECORDS SUMMARY | 2025-07-10 14:32 | XMS_ITS | Encounter Summary ---
Author Organization Verified Person [facility] tem Address [id number] [address] [place] [address] Care Team Providers Care Airbrush Artist Photography Name Role Phone Albino Judd MD Primary Care Provider [phone] Reason for Visit * Reason Onset Date Comments Referral/Hospital 03/25/2021 Encounter Details Date Type Department Care Team (Late st Contact Info) Description 03/25/2021 Telephone [facility] Neurology [address] [place] [address] Abimbola Mitchell Referral/Hospital Social History [...] called to schedule appointment from referral per [facility] visit. Referral dx: dizziness. Impressions: Abnormal VNG. [...] Abimbola Mitchell - 03/25/2021 11:47 AM EDT Campus Coordinator called patient to schedule with Dr. Szymanski [...] documented as of this encounter Care Teams Airbrush Artist Photography Relationship Specialty Start Date End Date Albino Judd MD PCP - General 04/05/14 05/03/25 documented as of this encounter
--- OUTSIDE RECORDS SUMMARY | 2025-07-10 14:32 | XMS_ITS | Encounter Summary ---
Author Organization [employer] [facility] tem Address [id number] [address] [place] [address] Care Team Providers Care Drop Hammer Setter Up Name Role Phone Albino Judd MD Primary Care Provider [phone] Encounter Details Date Type Department Care Team (Late st Contact Info) Description 08/26/2017 Telephone [facility] Th[facility] [address] [place] [address] [place] [address] Imelda Mukherjee LPN Social History [...] documented as of this encounter Care Teams Drop Hammer Setter Up Relationship Specialty Start Date End Date Albino Judd MD PCP - General 04/05/14 05/03/25 documented as of this encounter
--- OUTSIDE RECORDS SUMMARY | 2025-07-10 14:32 | XMS_ITS | Encounter Summary ---
Author Organization [facility] Address [facility] [place] [address] Care Team Providers Care Lease Attendant Name Role Phone Albino Judd MD Primary Care Provider [phone] Source Comments In the event this information is protected by the Federal Confidentiality of Alcohol and Drug AbusePatient Records regulations: The Federal rules restrict any use of the information to criminally investigate or prosecute any alcohol or drug abuse patient.[facility] Encounter Details Date Type Department Care Team (Late st Contact Info) Description 08/07/2014 Abstract Urology [address] [place] [address] Irais Gonzalez, PIPE ORGAN BUILDER.VELOCITY SHOOTER [address] [place] [address] Social History Tobacco Use Types [...] on filedocumented in this encounter Care Teams Lease Attendant Relationship Specialty Start Date End Date Albino Judd MD PCP - General Internal Medicine 09/27/13 documented as of this encounter
--- OUTSIDE RECORDS SUMMARY | 2025-07-10 14:32 | XMS_ITS | Encounter Summary ---
[facility] Address [id number] [address] [place] [address] Care Team Providers Care Occupational Therapy Technician Name Role Phone Albino Judd MD Primary Care Provider [phone] Encounter Details Date Type Department Care Team (Late st Contact Info) Description 11/11/2021 Orders Only [facility] [address] [place] [phone] Preethi Andrew, PA-C [address] [address] Social History Tobacco Use Types [...] documented as of this encounter Care Teams Occupational Therapy Technician Relationship Specialty Start Date End Date Albino Judd MD PCP - General 04/05/14 05/03/25 documented as of this encounter
--- OUTSIDE RECORDS SUMMARY | 2025-07-10 14:32 | XMS_ITS ---
Author Organization [facility] Address [address] [place] [address] Care Team Providers Care Geospatial Information Technologist Name Role Phone Albino Judd MD Primary Care Provider [phone] Albino Judd MD Unavailable Cristina Walter Unavailable Chronic Care Management (CCM) Status:Closed (Closed) Start date:09/18/2024 Enrollment date:09/18/2024 Enrollment reason:Identified as hospital admit End date:07/06/2025 Close reason:Not eligible Overview Please assess for Care Management needs. 09/18/24, 4:13 PM - Marjorie Wiley RN- Patient gives verbal consent to be enrolled in CCM Program and understands there could be a bill for this service. Pt risk score 5, ccm bill no, med [employer] July 06, 2025 2:18 PM Marjorie Wiley RN provider changing from marquis to octavio. Pt made aware during ER escobar. Continued Care and Services Coordination
--- OUTSIDE RECORDS SUMMARY | 2025-07-10 14:32 | XMS_ITS | Encounter Summary ---
Author Organization [facility] Address [address] [place] [address] Care Team Providers Care Crosscutter Rolled Glass Name Role Phone Albino Judd MD Primary Care Provider [phone] Marjorie Wiley RN Unavailable [phone] Albino Judd MD Unavailable Cristina Walter Unavailable Encounter Details Date Type Department Care Team (Late st Contact Info) Description 08/28/2024 Orders Only [facility] [address] [place] [address] Albino Judd MD [address] [place] [address] Social History Tobacco Use Types Packs/Day Years [...] week 06/29/2024 How often do you attend [facility] or lutheran services? 1 to 4 times per year 06/29/2024 Do you belong to any clubs o r organizations such as restorationism groups, unions, fraternal or athletic groups, or [...] medical care, and heating? Somewhat hard 06/29/2024 [facility] of Occupat ional Health - Occupational Stress [...] were you homeless or living in a assisted (including now)? No 06/29/2024 Comments Unknown Sex [...] Office Visit [facility] [address] [place] [phone] Albino Judd MD [address] [place] [address] documented as of this encounter Visit Diagnoses Not on filedocumented in this encounter Care Teams Crosscutter Rolled Glass Relationship Specialty Start Date End Date Albino Judd MD [address] [place] [address] PCP - General Family Medicine 06/30/24 Albino Judd MD [address] [place] [address] PCP - Medical [place] [employer] 08/29/24 11/28/99 Marjorie Wiley, LUCY [address] [place] [address] Registered Nurse Family Medicine 09/18/24 07/06/25 Cristina Walter PA [address] [place] [address] Physician Configuration Management Administrator Neurology 03/13/25 documented as of this encounter
--- OUTSIDE RECORDS SUMMARY | 2025-07-10 14:32 | XMS_ITS | Encounter Summary ---
Author Organization [facility] Address [address] [place] [address] Care Team Providers Care Certified Endoscopy Technician Name Role Phone Albino Judd MD Primary Care Provider [phone] Albino Judd MD Primary Care Provider [phone] Marjorie Wiley RN Unavailable [phone] Albino Judd MD Unavailable Cristina Walter Unavailable Encounter Details Date Type Department Care Team (Late st Contact Info) Description 04/18/2024 Abstract [facility] [address] [place] [address] Albino Judd MD [address] [place] [address] Social History Tobacco Use Types Packs/Day Years [...] 07/31/2025 2:30 PM EDT Office Visit [facility] [address] [place] [address] Albino Judd MD [address] [place] [address] documented as of this encounter Visit Diagnoses Not on filedocumented in this encounter Care Teams Certified Endoscopy Technician Relationship Specialty Start Date End Date Albino Judd MD PCP - General Family Medicine 06/25/23 06/29/24 Albino Judd MD [address] [place] [address] PCP - General Family Medicine 06/30/24 Albino Judd MD [address] [place] [address] PCP - Medical [place] [employer] 08/29/24 11/28/99 Marjorie Wiley, LUCY [address] [place] [address] Registered Nurse Family Medicine 09/18/24 07/06/25 Cristina Walter PA [address] [place] [address] Physician Core Fitter Neurology 03/13/25 documented as of this encounter
--- OUTSIDE RECORDS SUMMARY | 2025-07-10 14:32 | XMS_ITS | Clinical Summary ---
Author Organization [facility] Address [address] [facility] [place] [phone] Phone Care Team Providers Care Electrical Engineer Name Role Phone Unavailable Primary Care Provider [...]
--- OUTSIDE RECORDS SUMMARY | 2025-07-10 14:32 | XMS_ITS | Clinical Summary ---
Author Organization [facility] Address [address] [facility], [address] [place] [address] Care Team Providers Care Psychiatric Nursing Assistant Name Role Phone Albino Judd MD [...] of Treatment [place] [address] [facility] Care Teams Psychiatric Nursing Assistant Relationship Specialty Start Date End Date Albino Judd MD [address] [place] [address] PCP - General Family Medicine 03/25/18
--- OUTSIDE RECORDS SUMMARY | 2025-07-10 14:32 | XMS_ITS | Clinical Summary ---
Author Organization [employer] tem Address [id number] [address] [place] [address] Care Team Providers Care Endoscopy Technican Name Role Phone Unavailable Primary Care Provider [...] (11/24/2021): Added automatically from request for surgery [id number] Nystagmus 08/26/2021 Intractable migraine with aura without [...] - 06/13/2025 11:59 PM EDT Hospital Encounter [facility] - MRI [address] [place] [address] Kulwinder Tanner MD Vertigo Discharge Disposition: Home 06/11/2025 Travel 05/23/2025 Orders Only [facility] [address] [place] [phone] Kulwinder Tanner MD Vertigo (Primary Dx) 05/22/2025 5:35 PM EDT - 05/22/2025 9:51 PM EDT Emergency [facility] - Emergency [address] [place] [phone] Kulwinder Easley MD Hallucinations (Primary Dx) Discharge Disposition: Home 05/22/2025 Travel 05/07/2025 4:27 PM EDT - 05/07/2025 7:21 PM EDT Emergency [facility] - Emergency [address] [place] [address] Elevated liver enzymes (Primary Dx); Sciatica of left side; Left hip pain; Dysuria; Hypokalemia Discharge Disposition: Home 05/07/2025 Travel 05/04/2025 6:55 PM EDT - 05/04/2025 7:55 PM EDT Emergency [facility] - Emergency [address] [place] [address] Darrell Oliveira MD Left hip pain (Primary [...] 06/13/2026 06/13/2025 Medical Devices Implanted Type Area Power Tong Operator Device Identifier Shelf Expiration Date Model / Serial / Lot Neuro Stimulator-05/29 Implanted:Qty: 1 on 05/29/2014 by Genaro Hawkins MD Neuro Stimulator Spine Lumbar [id number] / [id number] / Description:medtronic pain s timulator Spacer Spnl 14x6mm Coalition Mis 7d 12mm Ti Strl Lf - [id number] Implanted:Qty: 1 on 12/05/2021 by Kulwinder Tanner MD at [facility] Orthopedic Implant Gl[employer]us [id number] / / Graft Bn Cllr Bn Mtrx Sm 1cc Vivigen Frmbl Rpl [id number] Rpl Special [id number] - [id number] Implanted:Qty: 1 on 12/05/2021 by Kulwinder Tanner MD at [facility] Other Implant [employer] 11/04/2022 BL-1600-0 / / [id number] Screw Bn 12mm 3.6mm Slf Drl [facility] - [id number] Implanted:Qty: 2 on 12/05/2021 by Kulwinder Tanner MD at [facility] Screw Globus [id number] / / Procedures Procedure [...] time period is included. POC Urine Specific Rule 1.010 1.010, 1.015, 1.020, 1.025 05/22/2025 9:03 PM EDT [facility] POC Urine Leukocyte Esterase Negative Negative 05/22/2025 9:03 PM EDT [facility] POC Urine Nitrite Negative Negative 05/22/2025 9:03 PM EDT [facility] POC Urine pH 5.5 5.0, 6.0, 6.5, 7.0, 7.5, 8.0, 8.5, 5.5 05/22/2025 9:03 PM EDT [facility] POC Urine Protein Negative Negative 05/22/2025 9:03 PM EDT [facility] POC Urine Glucose Negative Negative 05/22/2025 9:03 PM EDT [facility] POC Urine Ketones Negative Negative 05/22/2025 9:03 PM EDT [facility] POC Urine Urobilinogen 0.2 E.U./dL 05/22/2025 9:03 PM EDT [facility] POC Urine Bilirubin Negative Negative 05/22/2025 9:03 PM EDT [facility] POC Urine Blood/HGB Negative Negative 05/22/2025 9:03 PM EDT [facility] Urine 05/22/2025 9:10 PM EDT 05/22/2025 9:03 PM EDT us Kulwinder Easley MD POINT OF CARE TEST ORDERABLES Final Result Performing Organization Address City/[facility] Co de Phone Number [address] [place] [address], [place] * Extra Urine [place] (05/22/2025 9:01 PM EDT) Only the most recent of2 resultswithin the time period is included. Extra Tube Auto Resulted 05/22/2025 11:01 PM EDT [facility] Urine Urine specimen collection, clean catch / Unknown 05/22/2025 9:01 PM EDT 05/22/2025 9:08 PM EDT Ruthann Schmidt CONTROL SYSTEMS DRAFTING OFFICER-BUCK SWAMPER URINE ORDERABLES Final Res ult Performing Organization Address [facility] de Phone Number [address] [place] [address], [place] * Extra Urine Culture (05/22/2025 9:01 PM EDT) Only the most recent of2 resultswithin the time period is included. Extra Tube Auto Resulted 05/22/2025 11:01 PM EDT [facility] Urine Urine specimen collection, clean catch / Unknown 05/22/2025 9:01 PM EDT 05/22/2025 9:08 PM EDT us Ruthann Schmidt CONTROL SYSTEMS DRAFTING OFFICER-BUCK SWAMPER URINE ORDERABLES Final Res ult Performing Organization Address City/[facility] Co de Phone Number [address] [place] [address], [place] * Extra Urine (05/22/2025 9:01 PM EDT) Only the most recent of2 resultswithin the time period is included. Extra Tube Auto Resulted 05/22/2025 11:01 PM EDT [facility] Urine Urine specimen collection, clean catch / Unknown 05/22/2025 9:01 PM EDT 05/22/2025 9:08 PM EDT us Ruthann Schmidt CONTROL SYSTEMS DRAFTING OFFICER-BUCK SWAMPER URINE ORDERABLES Final Res ult [address] [place] [address], [place] * (ABNORMAL) Drug Screen, Urine (05/22/2025 9:01 PM EDT) AMPHETAMINE/METHAM P Negative Negative 05/22/2025 9:58 PM EDT [facility] Comment:AMPH/METH screening cut off = 1000 ng/mL COCAINE METABOLITE Negative Negative 2024 9:58 PM EDT [facility] Comment:Cocaine screening cu t off value = 300 ng/mL ECSTASY Negative Negative 05/22/2025 9:58 PM EDT [facility] Comment:Ecstasy screening cu t off value = 500 ng/mL METHADONE Negative Negative 05/22/2025 9:58 PM EDT [facility] Comment:Methadone screening cut off value = 300 ng/mL. OPIATES Negative Negative 05/22/2025 9:58 PM EDT [facility] Comment: Opiates screening cut off value = 300 ng/mL This test is used for the detection of codeine, hydrocodone (>1000 ng/mL), morphine and hydromorphone (>900 ng/mL) in urine. OXYCODONE Positive(A) Negative 05/22/2025 9:58 PM EDT [facility] Comment: Oxycodone screening cut off value = 300 ng/mL This test is used for the detection of oxycodone and oxymorphone in urine. PHENCYCLIDINE Negative Negative 05/22/2025 9:58 PM EDT [facility] Comment:Phencyclidine screen ing cut off value = 25 ng/mL CANNABINOIDS Positive(A) Negative 05/22/2025 9:58 PM EDT [facility] Comment:Cannabinoids/THC scr eening cut off value = 50 ng/mL Urine Barbiturates Negative Negative 2024 9:58 PM EDT [facility] Comment:Barbiturates screeni ng cut off value = 200 ng/mL BENZODIAZEPINES Negative Negative 9:58 PM EDT [facility] Comment:Benzodiazepines scre ening cut off value = 200 ng/mL Urine 05/22/2025 9:01 PM EDT 05/22/2025 9:08 PM EDT Narrative [facility] - 05/22/2025 9:58 PM EDT Confirmation available upon request. us Ruthann Schmidt CONTROL SYSTEMS DRAFTING OFFICER-BUCK SWAMPER URINE ORDERABLES Final Res ult [address] [place] [address], [place] * Troponin I, High Sensitivity 1 Hour (05/22/2025 7:42 PM EDT) TROPONIN I, HIGH SENSITIVITY 8 <16 ng/L 05/22/2025 8:30 PM EDT [facility] Blood Venous blood / Unknown 05/22/2025 7:42 PM EDT 05/22/2025 7:57 PM EDT us Ruthann Schmidt CONTROL SYSTEMS DRAFTING OFFICER-BUCK SWAMPER LAB BLOOD ORDERABLES Final Result [address] [place] [address], [place] * Troponin I, High Sensitivity 0 Hour (05/22/2025 6:16 PM EDT) Pathologist [facility] TROPONIN I, HIGH SENSITIVITY 7 <16 ng/L 05/22/2025 7:07 PM EDT [facility] Blood Venous blood / Unknown 05/22/2025 6:16 PM EDT 05/22/2025 6:26 PM EDT us Ruthann Schmidt CONTROL SYSTEMS DRAFTING OFFICER-BUCK SWAMPER LAB BLOOD ORDERABLES Final Result [facility] [address] [place] [address], [place] * (ABNORMAL) CBC auto differential (05/22/2025 6:16 PM EDT) Only the most recent of2 resultswithin the time period is included. [facility] WBC 12.0(H) 4 - 11 x10E9/L 05/22/2025 6:40 PM EDT [facility] RBC Count 4.56 3.8 - 5.2 X10E12/L 05/22/2025 6:40 PM EDT [facility] Hemoglobin 15.0 11.7 - 15.5 g/dL 05/22/2025 6:40 PM EDT [facility] Hematocrit 42.6 35 - 47 % 05/22/2025 6:40 PM EDT [facility] MCV 93 80 - 100 fL 05/22/2025 6:40 PM EDT [facility] MCH 32.8 27 - 34 pg 05/22/2025 6:40 PM EDT [facility] MCHC 35.1 32 - 36 g/dL 05/22/2025 6:40 PM EDT [facility] RDW 12.5 11.5 - 15 % 05/22/2025 6:40 PM EDT [facility] Platelet Count 315 150 - 450 X10E9/L 05/22/2025 6:40 PM EDT [facility] MPV 9.1 7 - 12 fL 05/22/2025 6:40 PM EDT [facility] Neutrophils % 60.2 % 05/22/2025 6:40 PM EDT [facility] Lymphocytes % 30.1 % 05/22/2025 6:40 PM EDT [facility] Monocytes % 8.6 % 05/22/2025 6:40 PM EDT [facility] Eosinophils % 0.3 % 05/22/2025 6:40 PM EDT [facility] Basophils % 0.8 % 05/22/2025 6:40 PM EDT [facility] Neutrophils Absolute (A) 7.2(H) 1.5 - 6.6 10*3/uL 05/22/2025 6:40 PM EDT [facility] Lymphocytes Absolute 3.6(H) 1.0 - 3.5 10*3/uL 05/22/2025 6:40 PM EDT [facility] Monocytes Absolute 1.0(H) 0.0 - 0.9 10*3/uL 05/22/2025 6:40 PM EDT [facility] Eosinophils Absolute 0.0 0.0 - 0.4 10*3/uL 05/22/2025 6:40 PM EDT [facility] Basophils Absolute 0.1 0.0 - 0.2 10*3/uL 05/22/2025 6:40 PM EDT [facility] Differential Type AUTOMATED DIFFERENTIAL 05/22/2025 6:40 PM EDT [facility] Blood Venous blood / Unknown 05/22/2025 6:16 PM EDT 05/22/2025 6:26 PM EDT us Ruthann Schmidt CONTROL SYSTEMS DRAFTING OFFICER-BUCK SWAMPER LAB BLOOD ORDERABLES Final Result [facility] [address] [place] [address], [place] * Magnesium (05/22/2025 6:16 PM EDT) Only the most recent of2 resultswithin the time period is included. MAGNESIUM 1.8 1.8 - 2.6 mg/dL 05/22/2025 7:03 PM EDT [facility] Blood Venous blood / Unknown 05/22/2025 6:16 PM EDT 05/22/2025 6:26 PM EDT us Ruthann Schmidt CONTROL SYSTEMS DRAFTING OFFICER-BUCK SWAMPER LAB BLOOD ORDERABLES Final Result Performing Organization Address City/[facility] Co de Phone Number [address] [place] [address], [place] * Ethanol (05/22/2025 6:16 PM EDT) ETHANOL <0.010 <=0.080 g/dL 05/22/2025 7:03 PM EDT [facility] Comment: This report is intended for use in clinical monitoring or management of patients. Blood Venous blood / Unknown 05/22/2025 6:16 PM EDT 05/22/2025 6:26 PM EDT us Ruthann Schmidt APRN-BUCK SWAMPER LAB BLOOD ORDERABLES Final Result Performing Organization Address [facility] de Phone Number [address] [place] [address], [place] * (ABNORMAL) Acetaminophen level (05/22/2025 6:16 PM EDT) ACETAMINOPHEN 5.2(L) 10.0 - 30.0 ug/mL 05/22/2025 7:03 PM EDT [facility] Blood Venous blood / Unknown 05/22/2025 6:16 PM EDT 05/22/2025 6:26 PM EDT Narrative [facility] - 05/22/2025 7:03 PM EDT Reference ranges are for therapeutic limits. us Ruthann Schmidt CONTROL SYSTEMS DRAFTING OFFICER-BUCK SWAMPER LAB BLOOD ORDERABLES Final Result [facility] [address] [place] [address], [place] * Salicylate level (05/22/2025 6:16 PM EDT) SALICYLATE <4.0 2.0 - 25.0 mg/dL 05/22/2025 7:03 PM EDT [facility] Blood Venous blood / Unknown 05/22/2025 6:16 PM EDT 05/22/2025 6:26 PM EDT Narrative [facility] - 05/22/2025 7:03 PM EDT Reference ranges are for therapeutic limits. us Ruthann Schmidt CONTROL SYSTEMS DRAFTING OFFICER-BUCK SWAMPER LAB BLOOD ORDERABLES Final Result [address] [place] [address], [place] * (ABNORMAL) Comprehensive metabolic panel (05/22/2025 6:16 PM EDT) Only the most recent of2 resultswithin the time period is included. Pathologist [facility] SODIUM 134 134 - 146 mmol/L 05/22/2025 7:03 PM EDT [facility] POTASSIUM 2.9(L) 3.5 - 5.0 mmol/L 05/22/2025 7:03 PM EDT [facility] CHLORIDE 101 98 - 109 mmol/L 05/22/2025 7:03 PM EDT [facility] CARBON DIOXIDE 23 22 - 32 mmol/L 05/22/2025 7:03 PM EDT [facility] ANION GAP 10 5 - 15 mmol/L 05/22/2025 7:03 PM EDT [facility] BLOOD UREA NITROGEN 13 5 - 23 mg/dL 05/22/2025 7:03 PM EDT [facility] CREATININE 0.83 0.40 - 1.00 mg/dL 05/22/2025 7:03 PM EDT [facility] Comment:METHOD TRACEABLE TO IDMS STANDARD GLUCOSE 181(H) 65 - 99 mg/dL 05/22/2025 7:03 PM EDT [facility] CALCIUM 9.1 8.5 - 10.5 mg/dL 05/22/2025 7:03 PM EDT [facility] TOTAL PROTEIN 7.0 6.0 - 8.0 g/dL 05/22/2025 7:03 PM EDT [facility] ALBUMIN 4.4 3.2 - 5.3 g/dL 05/22/2025 7:03 PM EDT [facility] ALKALINE PHOSPHATASE 112 39 - 130 U/L 05/22/2025 7:03 PM EDT [facility] AST 36 <=41 U/L 05/22/2025 7:03 PM EDT [facility] ALT 34(H) <=31 U/L 05/22/2025 7:03 PM EDT [facility] BILIRUBIN,TOTAL 0.9 0.3 - 1.2 mg/dL 05/22/2025 7:03 PM EDT [facility] EGFR Non-Race Dependent 83 >=60 ml/min/1.7 3sq.m 05/22/2025 7:03 PM EDT [facility] Comment: eGFR not reported due to non-numeric value for Creatinine. Reported eGFR is based on the CKD-EPI 2020 equation that does not use a race coefficient. Blood Venous blood / Unknown 05/22/2025 6:16 PM EDT 05/22/2025 6:26 PM EDT us Ruthann Schmidt CONTROL SYSTEMS DRAFTING OFFICER-BUCK SWAMPER LAB BLOOD ORDERABLES Final Result [facility] [address] [facility] [place] [address], * CT lumbar spine without contrast (05/07/2025 [...] on 05/07/2025 5:39 PM us Ruthann Schmidt CONTROL SYSTEMS DRAFTING OFFICER-BUCK SWAMPER IMG CT ORDERABLES Final Re sult * Light Blue Top (05/07/2025 5:06 PM EDT) Extra Tube Auto Resulted 05/07/2025 7:01 PM EDT [facility] Blood Venous blood / Unknown 05/07/2025 5:06 PM EDT 05/07/2025 5:11 PM EDT us Ruthann Schmidt CONTROL SYSTEMS DRAFTING OFFICER-BUCK SWAMPER LAB BLOOD ORDERABLES Final Result [facility] [address] [place] [address], [place] * X-ray hip left 2-3 views [...] Last 3 Months Insurance [employer] [place] Member Subscriber Plan / Payer (Ef fective 2024-Present) Name:Tori Soriano Guillermo Relation to Subscriber:Spouse Name:Bo Virgilio Allen Date of :1966 Address: [facility] [place] [address] Payer ID:Not on file Type:Not on file Address: [address] [place] [id number] MEDICAID [place] Advance Directives * Full Code (Latest Code Status on File) Date Activated Date Inactivated Comments 07/12/2017 10:09 AM 07/12/2017 3:51 PM
--- OUTSIDE RECORDS SUMMARY | 2025-07-10 14:32 | XMS_ITS | Encounter Summary ---
Author Organization [facility] Address [address] [place] [address] Care Team Providers Care Sap Security Consultant Name Role Phone Albino Judd MD Primary Care Provider [phone] Marjorie Wiley RN Unavailable [phone] Albino Judd MD Unavailable Cristina Walter Unavailable Encounter Details Date Type Department Care Team (Late st Contact Info) Description 07/06/2025 Patient Outreach [facility] [address] [place] [address] Marjorie Wiley, RN [address] [place] [address] Social History Tobacco Use Types Packs/Day Years [...] week 06/29/2024 How often do you attend [facility] or yarsanism services? 1 to 4 times per year 06/29/2024 Do you belong to any clubs o r organizations such as moravian groups, unions, fraternal or athletic groups, or [...] medical care, and heating? Somewhat hard 06/29/2024 [facility] - Occupational [...] [facility] in the past [facility], were you homeless or living in a fpc (including now)? No 06/29/2024 Comments Unknown Sex and Gender Information Value Date Recorded Sex Assigned at Not on file Legal Sex Female 8:23 PM EDT Gender Identity Not on file Sexual Orientation Not on file documented as of this encounter Progress Notes * Marjorie Wiley RN - 07/06/2025 12:47 PM EDT Images from the original note were not included. Pt was in ER 07/04 for POTS. Called and spoke to pt. Noted that the ER report we received was not a complete report, pt states she was given k tabs in ER. Will call for full report. Pt aware that she is to schedule fu visit with Dr Judd. Pt reports she stopped taking her oxybutinin on her own, states she found that a side effect is alzheimer's, since stopping the med she feels she is more clear thinking. Pt also noted feeling better after receiving k tabs in ER. She had some k tabs at home so she has been taking on her own, 4 tabs daily since ER visit. Requested pt to check the dosage, states dosage is 20meq tabs. Will get full report from ER, pt will need fu to see if she needs to be taking tabs at home. Pt states she will schedule fu. Pt reports having fu scheduled with uro, obstetrics gynecology md and neuro. Will inform Dr Judd regarding k tabs. July 06, 2025 2:07 PM Marjorie Wiley RN called and requested most recent ER note be faxed to Dr Judd office. Flowsheet Row Patient Outreach from 07/06/2025 in [facility] with Marjorie Wiley RN Hospital Information ED, Hospital or Long Term Facility Discharge? ED Patient has been contacted within 2 days of being seen in the ED Yes Diagnosis POTS Discharge Date 07/04/25 Discharged To: Home Setting Discharge Hospital [facility] Engagement Admission Date 07/04/25 Medications Discharge medications reviewed and reconciled from hospital? -- [pt denies any medication changes.] Appointments Nursing Interventions Educated patient on importance of making appointment if symptoms persist/worsen, Advised patient to make appointment Does the patient have any upcoming specialty appointments? Yes Nursing Interventions Advised patient to keep appointment Self Management Does patient have home health? no Patient Teaching Does the patient have access to their discharge instructions? Yes [called [facility] and requested dc summbe faxed.] Nursing Interventions Reviewed instructions with patient What is the patient's perception of their health status since discharge? Improving Is the patient/caregiver able to teach back the hierarchy of who to call/visit for symptoms/problems? PCP, Specialist, Home Health nurse, Urgent Care, ED, 911 Yes Wrap Up documented in this encounter Plan of Treatment Upcoming Encounters Date Type Department Care Team (Late st Contact Info) Description 07/31/2025 2:30 PM EDT Office Visit [facility] [address] [place] [address] Albino Judd MD [address] [place] [phone] documented as of this encounter Goals Goal Patient Goal Type Associated Problems Recent Progress Patient-Stated? Author Help patient manage antidepressant medication Care Plan Patient on antidepressant monitoring plan No Nearhood, Roxanne Baseline PHQ-9 Care Plan Baseline PHQ-9 No NearhoodRoxanne documented as of this encounter Visit Diagnoses Diagnosis Essential (primary) hypertension- Primary Unspecified essential hypertension Postural orthostatic tachycardia syndrome (POTS) documented in this encounter Additional Health Concerns Active Problems Noted Date Diagnosed Date Patient on antidepressant monitoring plan 2024 Baseline PHQ-9 03/28/2025 documented as of this encounter Care Teams Sap Security Consultant Relationship Specialty Start Date End Date Albino Judd MD [address] [place] [phone] PCP - General Family Medicine 06/30/24 Albino Judd MD [address] [place] [address] PCP - Medical [employer] 08/29/24 11/28/99 Marjorie Wiley, RN [address] [place] [address] Registered Nurse Family Medicine 09/18/24 07/06/25 Cristina Walter PA [address] [facility] [address] [place] [address] Physician Floating Derrick Operator Neurology 03/13/25 documented as of this encounter
--- OUTSIDE RECORDS SUMMARY | 2025-07-10 14:32 | XMS_ITS | Encounter Summary ---
Author Organization [facility] Address [address] [place] [address] Care Team Providers Care Personal Security Specialist Name Role Phone Albino Judd MD Primary Care Provider [phone] Albino Judd MD Unavailable Cristina Walter Unavailable Encounter Details Date Type Department Care Team (Late st Contact Info) Description 07/10/2025 Bamboo flowsheet CARMINA Nieves [facility]BG[facility]Jer[facility] [address] [place] [id number] Alice Reid PA [address] [place], [facility] Social History Tobacco Use Types Packs/Day Years [...] week 06/29/2024 How often do you attend [facility] or church services? 1 to 4 times per year 06/29/2024 Do you belong to any clubs o r organizations such as jainism groups, unions, fraternal or athletic groups, or [...] medical care, and heating? Somewhat hard 06/29/2024 [facility] - Occupational Stress Questionnaire Answer Date Recorded [...] any time in the past 12 m [facility], were you homeless or living in a care home (including now)? No 06/29/2024 Comments No Sex [...] EDT Office Visit [facility] [address] [place] [phone] Albino Judd MD [address] [place] [phone] documented as of this encounter Goals Goal Patient Goal Type Associated Problems Recent Progress Patient-Stated? Author Help patient manage antidepressant medication Care Plan Patient on antidepressant monitoring plan No Nearhood, Roxanne Baseline PHQ-9 Care Plan Baseline PHQ-9 No NearhoodRoxanne documented as of this encounter Visit Diagnoses Not on filedocumented in this encounter Additional Health Concerns Active Problems Noted Date Diagnosed Date Patient on antidepressant monitoring plan 2024 Baseline PHQ-9 03/28/2025 documented as of this encounter Care Teams Personal Security Specialist Relationship Specialty Start Date End Date Albino Judd MD [address] [place] [phone] PCP - General Family Medicine 06/30/24 Albino Judd MD [address] [place] [phone] PCP - Medical [place] [employer] 08/29/24 11/28/99 Cristina Walter PA [address] [place] [address] Physician Lure Maker Neurology 03/13/25 documented as of this encounter
--- OUTSIDE RECORDS SUMMARY | 2025-07-10 14:32 | XMS_ITS | Clinical Summary ---
Author Organization [facility] Address [address] [place] [address] Care Team Providers Care Gardening Supervisor Name Role Phone Albino Judd MD Primary Care Provider Allergies Active Allergy Reactions Criticality Noted Date [...] is lower risk 7 12/12/2024 Data from: https://www.neighborhoodatlas.medicine.[facility].edu/. Last address used for calculation [address] [...] exists Lipid Screening 08/25/2029 08/25/2024, 05/04/2022 Insurance [facility] PPO Care Teams Gardening Supervisor Relationship Specialty Start Date End Date Albino Judd MD PCP - General Internal Medicine 09/27/13
--- OUTSIDE RECORDS SUMMARY | 2025-07-10 14:32 | XMS_ITS | Encounter Summary ---
Author Organization [facility] Address [address] [place] [address] Care Team Providers Care Assistant Portfolio Manager Name Role Phone Albino Judd MD Primary Care Provider [phone] Albino Judd MD Primary Care Provider [phone] Marjorie Wiley RN Unavailable [phone] Albino Judd MD Unavailable Cristina Walter Unavailable Encounter Details Date Type Department Care Team (Late st Contact Info) Description 04/13/2024 Orders Only [facility] [address] [place] [phone] Albino Judd MD [address] [place] [phone] Essential hypertension, benign Social History Tobacco Use [...] 07/31/2025 2:30 PM EDT Office Visit [facility] [address] [place] [address] Albino Judd MD [address] [place] [phone] documented as of this encounter Visit Diagnoses Diagnosis Essential hypertension, benign Essential hypertension, benign documented in this encounter Care Teams Assistant Portfolio Manager Relationship Specialty Start Date End Date Albino Judd MD PCP - General Family Medicine 06/25/23 06/29/24 Albino Judd MD [address] [place] [phone] PCP - General Family Medicine 06/30/24 Albino Judd MD [address] [place] [phone] PCP - Medical [place] [employer] 08/29/24 11/28/99 Marjorie Wiley, LUCY [address] [place], [place] [id number] Registered Nurse Family Medicine 09/18/24 07/06/25 Cristina Walter PA [address] [place] [address] Physician Continuous Linter Drier Operator Neurology 03/13/25 documented as of this encounter
--- NOTE | 2025-07-10 15:18 | ECG_ITS ---
[facility] Test Date: 2025-07-10 Pat Name: MIKALA RAM Department: Room: - Gender: Female Document Coordinator: : 1970 Requested By: PADMINI PINK Order Number: [id number] Reading MD: LAWSON RIGGS M.D. Measurements Intervals Daggett Rate: 83 P: 74 NC: 128 QRS: 38 QRSD: 74 T: 75 QT: 340 QTc: 380 Interpretive Statements 1100 Sinus rhythm 4068 Nonspecific Twave abnormality 9130 borderline ECG Compared to ECG 07/04/2025 18:11:03 Myocardial infarct finding no longer present Electronically Signed On 07-10-2025 19:55:42 EDT by LAWSON RIGGS M.D.
[2025-07-10 15:31] LABS: Hematocrit 45.8 % (36.0-48.0); Hemoglobin 16.0 g/dL (12.0-16.0); Immature Granulocytes Abs Auto 0.02 10^3/uL (0.00-0.03); Immature Granulocytes Pct Auto 0.2 % (0.0-0.5); Lymphocytes Absolute Auto 2.3 10^3/uL (1.2-3.8); Mean Corpuscular HGB Conc 34.9 g/dL (29.9-35.2); Mean Corpuscular Hemoglobin 33.3 pg (26.7-34.0); Mean Corpuscular Volume 95.4 fL (81.0-99.0); Platelet Count 289 10^3/uL (150-450); Red Blood Count 4.80 10^6/uL (4.20-5.40); White Blood Count 8.1 10^3/uL (4.0-11.0)
[2025-07-10 15:46] LABS: Anion Gap 17.3; Blood Urea Nitrogen 14.0 mg/dL (7.0-18.0); Calcium 10.1 mg/dL (8.5-10.1); Carbon Dioxide 23.5 mmol/L (21.0-32.0); Chloride 105 mmol/L (98-107); Estimated GFR (African America >60 (>=60 mL/min/1.73m^2); Estimated GFR (Non-African Ame 55 (>=60 mL/min/1.73m^2); Glucose 98 mg/dL (74-106); Magnesium 2.0 mg/dL (1.8-2.4); Potassium 4.8 mmol/L (3.5-5.1); Sodium 141 mmol/L (136-145)
--- NOTE | 2025-07-10 16:40 | ED.GENADUL1 ---
Documented by User: ASHOK Ellison 07/11/25 15:22 HPI HPI - General Adult General Chief complaint: Dizziness Stated complaint: dizziness Time Seen by Provider: 07/10/25 14:42 Source: patient Mode of arrival: Wheelchair Limitations: no limitations History of Present Illness HPI narrative: Patient is a 55-year-old female with a PMH of POTS who presents to the emergency department today with her with complaints of persistent dizziness that worsened this morning. She was seen here 6 days ago on 07/04/2025 and did have low potassium and magnesium on labs. She has been taking replacements for these. She states that she has had multiple workups for this dizziness including seeing a neurologist and neurosurgeon with brain MRI. She denies chest pain, shortness of breath, abdominal pain, falls or trauma. Patient has had a partial hysterectomy. She does see Dr. Judd and has been on meclizine but states the dizziness persists. She denies vertigo or syncope. Related Data Home Medications ?Medication ?Instructions ?Recorded ?Confirmed alendronate 70 mg tablet 70 mg PO DAILY 07/04/25 07/10/25 atogepant 60 mg tablet (Qulipta) mg 07/04/25 baclofen 20 mg tablet mg 07/04/25 cetirizine 10 mg tablet (Allergy mg 07/04/25 Relief (cetirizine)) cholecalciferol (vitamin D3) 50 07/04/25 mcg (2,000 unit) tablet ciprofloxacin HCl 500 mg tablet mg 07/04/25 fluticasone propionate 50 intranasal 07/04/25 mcg/actuation nasal spray,suspension ibuprofen 800 mg tablet mg 07/04/25 levothyroxine 75 mcg tablet mcg 07/04/25 liothyronine 5 mcg tablet mcg 07/04/25 lisinopril 5 mg tablet mg 07/04/25 magnesium oxide 400 mg (241.3 mg mg 07/04/25 magnesium) tablet meclizine 25 mg tablet mg 07/04/25 methylphenidate HCl 20 mg biphasic mg PO 07/04/25 50-50 capsule,extended release montelukast 10 mg tablet mg 07/04/25 omeprazole 10 mg capsule,delayed mg 07/04/25 release ondansetron 4 mg disintegrating mg 07/04/25 tablet oxcarbazepine 600 mg tablet mg 07/04/25 potassium chloride 20 mEq meq PO 07/04/25 tablet,extended release rizatriptan 10 mg tablet mg 07/04/25 sodium chloride 1,000 mg soluble mg 07/04/25 tablet Allergies Allergy/AdvReac Type Severity Reaction Status Date / Time acetaminophen (From Allergy Intermediate Rash Verified 07/04/25 19:58 Tylenol-Codeine #3) amitriptyline Allergy Intermediate Hypertensio Verified 07/04/25 19:58 n codeine (From Allergy Intermediate Rash Verified 07/04/25 19:58 Tylenol-Codeine #3) diazepam Allergy Intermediate edema Verified 07/04/25 19:58 gabapentin Allergy Intermediate sores Verified 07/04/25 19:58 ketorolac (From Toradol) Allergy Intermediate Anxiety Verified 07/04/25 19:58 lorazepam Allergy Intermediate edema Verified 07/04/25 19:58 metoclopramide (From Reglan) Allergy Intermediate Agitated Verified 07/04/25 19:58 morphine Allergy Intermediate Rash Verified 07/04/25 19:58 riboflavin (vitamin B2) Allergy Intermediate Blurry Verified 07/04/25 19:58 Vision topiramate Allergy Intermediate edema Verified 07/04/25 19:58 varenicline Allergy Intermediate Agitated Verified 07/04/25 19:58 zonisamide Allergy Intermediate edema Verified 07/04/25 19:58 carisoprodol Allergy Mild Swelling Verified 07/04/25 19:58 of the Eye somatorelin Allergy Mild Agitated Verified 07/04/25 19:58 Opioid HPI Opioid Management Most Recent Opioid Data: Ur Phencyclidine Scrn, (NEGATIVE) Negative 07/04/25, 19:40 Review of Systems ROS Status of ROS 10 or more systems reviewed and unremarkable except as noted in history and below PFSH PFSH Social History Little interest or pleasure in doing things: not at all Feeling down, depressed, or hopeless: not at all Exam Narrative Exam Narrative: General: No distress, age-appropriate Skin: Warm, dry, no pallor. No rash. Head: Normocephalic, atraumatic. Neck: Supple, non-tender. Eye: Pupils are equal, round and EOMI. No scleral icterus. Ears, Nose, Mouth, and Throat: No nasal mucosal hypertrophy. Oral mucosa is moist, no posterior oropharynx erythema, uvula is mid-line Cardiovascular: Regular Rate and Rhythm without murmur, gallop or rub. Respiratory: No accessory muscle use or respiratory distress. Lungs are clear to auscultation, no wheezing, rales or rhonchi Chest Wall: no tenderness Back: No midline thoracic or lumbar vertebral tenderness. Musculoskeletal: Full ROM of all extremities, no calf or popliteal tenderness GI: Abdomen is soft, non-distended, non tender to palpation. No masses appreciated. No rebound, guarding, or rigidity noted. Neurological: A&O x4. No cranial nerve dysfunction observed. No truncal ataxia. Moves all extremities. Sensation intact. Psychiatric: Cooperative and interactive. Normal mood and affect. Constitutional Vital Signs, click to edit/add: Last Vital Signs Temp 98.7 F 07/10/25 14:36 Pulse 76 07/10/25 17:00 Resp 21 H 07/10/25 17:00 BP 118/73 07/10/25 14:39 Pulse Ox 98 07/10/25 16:10 O2 Del Method Room Air 07/10/25 14:36 Course Vital Signs Vital signs: Vital Signs Pulse Rate 83 07/10/25 14:35 Respiratory Rate 22 H 07/10/25 14:35 Pulse Oximetry 97 07/10/25 14:35 Temperature 98.7 F 07/10/25 14:36 Pulse Rate 76 07/10/25 17:00 Respiratory Rate 21 H 07/10/25 17:00 Blood Pressure 118/73 07/10/25 14:39 Pulse Oximetry 98 07/10/25 16:10 Oxygen Delivery Method Room Air 07/10/25 14:36 Medical Decision Making [facility] Narrative Medical decision making narrative: 55-year-old female presents with dizziness, most consistent with a peripheral cause, history of POTS. No history of recent infection so doubt vestibular neuritis. History not consistent with meniere's disease. No history of trauma. No red flag features for central vertigo to include gradual onset, vertical/bidirectional or non-fatigable nystagmus, focal neurologic findings on exam (including inability to ambulate, ataxia, dysmetria). Presentation not consistent with an acute RISK CONTROL ANALYST infection, vertebral basilar artery insufficiency, cerebellar hemorrhage or infarction, intracranial mass or bleed. Labs as below, largely within normal limits. 1 L LR given. Patient's symptoms improved after this and patient was discharged to home with her in good condition. Medical Records Medical records reviewed: Yes I reviewed the patient's medical records Medical records narrative: Emergency department note reviewed from 6 days prior for same chief complaint. Lab Data Lab results reviewed: Yes I reviewed the patient's lab results Lab results narrative: CBC WNL, BMP WNL other than CR mildly elevated to 1.04, 1 L IVF given in ED. Mag and Phos WNL. UA with trace WBC/bacteria/mucus, patient with no urinary symptoms or complaints. Labs: Lab Results 07/10/25 07/10/25 Range/Units 15:24 16:25 WBC 8.1 (4.0-11.0) 10^3/uL RBC 4.80 (4.20-5.40) 10^6/uL Hgb 16.0 (12.0-16.0) g/dL Hct 45.8 (36.0-48.0) % MCV 95.4 (81.0-99.0) fL MCH 33.3 (26.7-34.0) pg MCHC 34.9 (29.9-35.2) g/dL RDW 11.9 (11.0-15.0) % Plt Count 289 (150-450) 10^3/uL MPV 11.0 (9.5-13.5) fL Neut % (Auto) 60.9 (43.0-75.0) % Lymph % (Auto) 28.1 (20.5-60.0) % Mer[place] % (Auto) 9.1 (1.7-12.0) % Eos % (Auto) 1.0 (0.9-7.0) % Baso % (Auto) 0.7 (0.2-2.0) % Neut # (Auto) 4.9 (1.4-6.5) 10^3/uL Lymph # (Auto) 2.3 (1.2-3.8) 10^3/uL [place] # (Auto) 0.7 (0.3-0.8) 10^3/uL Eos # (Auto) 0.1 (0.0-0.7) 10^3/uL Baso # (Auto) 0.1 (0.0-0.1) 10^3/uL Abs Immat Gran (auto) 0.02 (0.00-0.03) 10^3/uL Imm/Tot Granulo (auto) 0.2 (0.0-0.5) % Sodium 141 (136-145) mmol/L Potassium 4.8 (3.5-5.1) mmol/L Chloride 105 (98-107) mmol/L Carbon Dioxide 23.5 (21.0-32.0) mmol/L Anion Gap 17.3 BUN 14.0 (7.0-18.0) mg/dL Creatinine 1.04 H (0.55-1.02) mg/dL Est GFR ( Amer) >60 (>=60 mL/min/1.73m^2) Est GFR (Non-Af Amer) 55 L (>=60 mL/min/1.73m^2) BUN/Creatinine Ratio 13.5 Glucose 98 (74-106) mg/dL Calcium 10.1 (8.5-10.1) mg/dL Phosphorus 3.2 (2.6-4.7) mg/dL Magnesium 2.0 (1.8-2.4) mg/dL Urine Color Yellow (YELLOW) Urine Clarity Clear (CLEAR) Urine pH 6.0 (5.0-9.0) Ur Specific Matthews 1.015 (1.005-1.025) Urine Protein Trace (NEG/TRACE) mg/dL Urine Glucose (UA) Negative (NEGATIVE) mg/dL Urine Ketones Negative (NEGATIVE) mg/dL Urine Occult Blood Negative (NEGATIVE) Urine Nitrite Negative (NEGATIVE) Urine Bilirubin Negative (NEGATIVE) Urine Urobilinogen 0.2 (0.2-1.0) EU/dL Ur Leukocyte Esterase Negative (NEGATIVE) Urine RBC 0-2 (0-2) #/HPF Urine WBC 0-2 A (NONE SEEN) #/HPF Ur Squamous Epith Cells Few A (NONE/RARE) #/LPF Urine Crystals None seen (None Seen) #/HPF Urine Bacteria Trace A (NONE SEEN) #/HPF Urine Casts Seen A (NONE SEEN) #/LPF Hyaline Casts Many Urine Mucus Trace A (NONE SEEN) Ur Culture Indicated? No Discharge Plan Discharge Chief Complaint: Dizziness Clinical Impression: Dizziness Patient Disposition: Home, Self-Care Time of Disposition Decision: 17:45 Condition: Good Mode of Transportation: Private Vehicle Prescriptions / Home Meds: No Action cetirizine [Allergy Relief (cetirizine)] 10 mg tablet ibuprofen 800 mg tablet alendronate 70 mg tablet 70 mg PO DAILY rizatriptan 10 mg tablet ciprofloxacin HCl 500 mg tablet liothyronine 5 mcg tablet baclofen 20 mg tablet levothyroxine 75 mcg tablet magnesium oxide 400 mg (241.3 mg magnesium) tablet omeprazole 10 mg capsule,delayed release(DR/EC) meclizine 25 mg tablet oxcarbazepine 600 mg tablet montelukast 10 mg tablet lisinopril 5 mg tablet ondansetron 4 mg tablet,disintegrating fluticasone propionate 50 mcg/actuation spray,suspension INTRANASAL methylphenidate HCl 20 mg capsule,ER biphasic 50-50 PO sodium chloride 1,000 mg tablet,soluble cholecalciferol (vitamin D3) 50 mcg (2,000 unit) tablet potassium chloride 20 mEq tablet extended release PO Qulipta 60 mg tablet Print Language: Sammarinese Instructions: Dizziness (ED), POTS (Postural Orthostatic Tachycardia Syndrome) (ED) Referrals: Albino Judd MD [Primary Care Provider, Family Practice] - 1 week Discharge Date/Time: 07/10/25 18:00 Documented by User: José Luis Ridley MD 07/10/25 21:03 HPI HPI - General Adult General Chief complaint: Dizziness Stated complaint: dizziness Time Seen by Provider: 07/10/25 14:42 Related Data Home Medications ?Medication ?Instructions ?Recorded ?Confirmed alendronate 70 mg tablet 70 mg PO DAILY 07/04/25 07/10/25 atogepant 60 mg tablet (Qulipta) mg 07/04/25 baclofen 20 mg tablet mg 07/04/25 cetirizine 10 mg tablet (Allergy mg 07/04/25 Relief (cetirizine)) cholecalciferol (vitamin D3) 50 07/04/25 mcg (2,000 unit) tablet ciprofloxacin HCl 500 mg tablet mg 07/04/25 fluticasone propionate 50 intranasal 07/04/25 mcg/actuation nasal spray,suspension ibuprofen 800 mg tablet mg 07/04/25 levothyroxine 75 mcg tablet mcg 07/04/25 liothyronine 5 mcg tablet mcg 07/04/25 lisinopril 5 mg tablet mg 07/04/25 magnesium oxide 400 mg (241.3 mg mg 07/04/25 magnesium) tablet meclizine 25 mg tablet mg 07/04/25 methylphenidate HCl 20 mg biphasic mg PO 07/04/25 50-50 capsule,extended release montelukast 10 mg tablet mg 07/04/25 omeprazole 10 mg capsule,delayed mg 07/04/25 release ondansetron 4 mg disintegrating mg 07/04/25 tablet oxcarbazepine 600 mg tablet mg 07/04/25 potassium chloride 20 mEq meq PO 07/04/25 tablet,extended release rizatriptan 10 mg tablet mg 07/04/25 sodium chloride 1,000 mg soluble mg 07/04/25 tablet Allergies Allergy/AdvReac Type Severity Reaction Status Date / Time acetaminophen (From Allergy Intermediate Rash Verified 07/04/25 19:58 Tylenol-Codeine #3) amitriptyline Allergy Intermediate Hypertensio Verified 07/04/25 19:58 n codeine (From Allergy Intermediate Rash Verified 07/04/25 19:58 Tylenol-Codeine #3) diazepam Allergy Intermediate edema Verified 07/04/25 19:58 gabapentin Allergy Intermediate sores Verified 07/04/25 19:58 ketorolac (From Toradol) Allergy Intermediate Anxiety Verified 07/04/25 19:58 lorazepam Allergy Intermediate edema Verified 07/04/25 19:58 metoclopramide (From Reglan) Allergy Intermediate Agitated Verified 07/04/25 19:58 morphine Allergy Intermediate Rash Verified 07/04/25 19:58 riboflavin (vitamin B2) Allergy Intermediate Blurry Verified 07/04/25 19:58 Vision topiramate Allergy Intermediate edema Verified 07/04/25 19:58 varenicline Allergy Intermediate Agitated Verified 07/04/25 19:58 zonisamide Allergy Intermediate edema Verified 07/04/25 19:58 carisoprodol Allergy Mild Swelling Verified 07/04/25 19:58 of the Eye somatorelin Allergy Mild Agitated Verified 07/04/25 19:58 Opioid HPI Opioid Management Most Recent Opioid Data: Ur Phencyclidine Scrn, (NEGATIVE) Negative 07/04/25, 19:40 PFSH PFSH Social History Little interest or pleasure in doing things: not at all Feeling down, depressed, or hopeless: not at all Exam Constitutional Vital Signs, click to edit/add: Last Vital Signs Temp 98.7 F 07/10/25 14:36 Pulse 76 07/10/25 17:00 Resp 21 H 07/10/25 17:00 BP 118/73 07/10/25 14:39 Pulse Ox 98 07/10/25 16:10 O2 Del Method Room Air 07/10/25 14:36 Course Vital Signs Vital signs: Vital Signs Pulse Rate 83 07/10/25 14:35 Respiratory Rate 22 H 07/10/25 14:35 Pulse Oximetry 97 07/10/25 14:35 Temperature 98.7 F 07/10/25 14:36 Pulse Rate 76 07/10/25 17:00 Respiratory Rate 21 H 07/10/25 17:00 Blood Pressure 118/73 07/10/25 14:39 Pulse Oximetry 98 07/10/25 16:10 Oxygen Delivery Method Room Air 07/10/25 14:36 Medical Decision Making MDM Narrative Medical decision making narrative: patient presented with dizziness which she has had in the past and was also found to have hypokalemia. Care transferred at change of shift. Patient hydrated and potassium supplemented. Patient discharged home in improved condition Lab Data Labs: Lab Results 07/10/25 07/10/25 Range/Units 15:24 16:25 WBC 8.1 (4.0-11.0) 10^3/uL RBC 4.80 (4.20-5.40) 10^6/uL Hgb 16.0 (12.0-16.0) g/dL Hct 45.8 (36.0-48.0) % MCV 95.4 (81.0-99.0) fL MCH 33.3 (26.7-34.0) pg MCHC 34.9 (29.9-35.2) g/dL RDW 11.9 (11.0-15.0) % Plt Count 289 (150-450) 10^3/uL MPV 11.0 (9.5-13.5) fL Neut % (Auto) 60.9 (43.0-75.0) % Lymph % (Auto) 28.1 (20.5-60.0) % [place] % (Auto) 9.1 (1.7-12.0) % Eos % (Auto) 1.0 (0.9-7.0) % Baso % (Auto) 0.7 (0.2-2.0) % Neut # (Auto) 4.9 (1.4-6.5) 10^3/uL Lymph # (Auto) 2.3 (1.2-3.8) 10^3/uL [place] # (Auto) 0.7 (0.3-0.8) 10^3/uL Eos # (Auto) 0.1 (0.0-0.7) 10^3/uL Baso # (Auto) 0.1 (0.0-0.1) 10^3/uL Abs Immat Gran (auto) 0.02 (0.00-0.03) 10^3/uL Imm/Tot Granulo (auto) 0.2 (0.0-0.5) % Sodium 141 (136-145) mmol/L Potassium 4.8 (3.5-5.1) mmol/L Chloride 105 (98-107) mmol/L Carbon Dioxide 23.5 (21.0-32.0) mmol/L Anion Gap 17.3 BUN 14.0 (7.0-18.0) mg/dL Creatinine 1.04 H (0.55-1.02) mg/dL Est GFR ( Amer) >60 (>=60 mL/min/1.73m^2) Est GFR (Non-Af Amer) 55 L (>=60 mL/min/1.73m^2) BUN/Creatinine Ratio 13.5 Glucose 98 (74-106) mg/dL Calcium 10.1 (8.5-10.1) mg/dL Phosphorus 3.2 (2.6-4.7) mg/dL Magnesium 2.0 (1.8-2.4) mg/dL Urine Color Yellow (YELLOW) Urine Clarity Clear (CLEAR) Urine pH 6.0 (5.0-9.0) Ur Specific Matthews 1.015 (1.005-1.025) Urine Protein Trace (NEG/TRACE) mg/dL Urine Glucose (UA) Negative (NEGATIVE) mg/dL Urine Ketones Negative (NEGATIVE) mg/dL Urine Occult Blood Negative (NEGATIVE) Urine Nitrite Negative (NEGATIVE) Urine Bilirubin Negative (NEGATIVE) Urine Urobilinogen 0.2 (0.2-1.0) EU/dL Ur Leukocyte Esterase Negative (NEGATIVE) Urine RBC 0-2 (0-2) #/HPF Urine WBC 0-2 A (NONE SEEN) #/HPF Ur Squamous Epith Cells Few A (NONE/RARE) #/LPF Urine Crystals None seen (None Seen) #/HPF Urine Bacteria Trace A (NONE SEEN) #/HPF Urine Casts Seen A (NONE SEEN) #/LPF Hyaline Casts Many Urine Mucus Trace A (NONE SEEN) Ur Culture Indicated? No Discharge Plan Discharge Chief Complaint: Dizziness Clinical Impression: Dizziness Patient Disposition: Home, Self-Care Time of Disposition Decision: 17:45 Condition: Good Mode of Transportation: Private Vehicle Prescriptions / Home Meds: No Action cetirizine [Allergy Relief (cetirizine)] 10 mg tablet ibuprofen 800 mg tablet alendronate 70 mg tablet 70 mg PO DAILY rizatriptan 10 mg tablet ciprofloxacin HCl 500 mg tablet liothyronine 5 mcg tablet baclofen 20 mg tablet levothyroxine 75 mcg tablet magnesium oxide 400 mg (241.3 mg magnesium) tablet omeprazole 10 mg capsule,delayed release(DR/EC) meclizine 25 mg tablet oxcarbazepine 600 mg tablet montelukast 10 mg tablet lisinopril 5 mg tablet ondansetron 4 mg tablet,disintegrating fluticasone propionate 50 mcg/actuation spray,suspension INTRANASAL methylphenidate HCl 20 mg capsule,ER biphasic 50-50 PO sodium chloride 1,000 mg tablet,soluble cholecalciferol (vitamin D3) 50 mcg (2,000 unit) tablet potassium chloride 20 mEq tablet extended release PO Qulipta 60 mg tablet Print Language: Sammarinese Instructions: Dizziness (ED), POTS (Postural Orthostatic Tachycardia Syndrome) (ED) Referrals: Albino Judd MD [Primary Care Provider, Family Practice] - 1 week Discharge Date/Time: 07/10/25 18:00
[2025-07-10 16:45] LABS: Glucose Urine UA NEGATIVE (NEGATIVE)
[2025-07-10 16:59] LABS: Cast Seen? SEEN #/LPF (NONE SEEN); Crystals Seen? None Seen #/HPF (None Seen); Urine Culture Indicated NO
== END 2025-07-10 18:00 | disposition home or self-care (01) ==
PROVIDERS: Physician Assistant; Emergency Provider Emergency Medicine; PCP Family Medicine
DX: R42 Dizziness and giddiness (principal)
CPT/HCPCS: 36415; 80048; 81001; 83735; 84100; 85025; 93005; 96360; 99285

== ENCOUNTER 2025-07-10 18:51 | Outpatient (REF) | payer OTHER, SELFPAY ==
--- OUTSIDE RECORDS SUMMARY | 2025-07-10 13:00 | XMS_ITS | Encounter Summary ---
Author Organization [facility] Address [address] [place] [address] Care Team Providers Care Slicing Machine Operator Name Role Phone Albino Judd MD Primary Care Provider [phone] Albino Judd MD Unavailable Cristina Walter Unavailable Reason for Visit * Reason Comments Gynecologic Exam Encounter Details Date Type Department Care Team (Late st Contact Info) Description 07/10/2025 1:00 PM EDT Office Visit [facility] [address] [address] Alice Reid PA [address] [place], [place] [id number] Well woman exam with routine gynecological exam; [...] often do you attend chur ch or lutheran services? 1 to 4 times per year 06/29/2024 Do you belong to any clubs o r organizations such as nondenominational groups, unions, fraternal or athletic groups, or [...] medical care, and heating? Somewhat hard 06/29/2024 [facility] - Occupational Stress [...] any time in the past 12 m [facility], were you homeless or living in a retirement (including now)? 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 Hypokalemia 08/24/2024 Insomnia, unspecified 08/24/2024 Anxiety disorder 08/24/2024 Disease of digestive system 08/24/2024 Mononeuritis Sleep apnea Disturbance of salivary secretion Depression Chronic bilateral low back pain with left-sided sciatica Hydronephrosis Hyperreflexia Neuropathy Memory loss Pseudodementia Disturbance of skin sensation Nondependent abuse of drugs ([facility]) Migraine without aura and without status migrainosus, [...] bullosa Depression screening Deviated septum 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[facility]) Encounter for gynecological examination (general) (routine) without abnormal findings Encounter for long-term (current) drug use GERD (gastroesophageal reflux disease) Hypersomnia, unspecified Hypo-osmolality and hyponatremia Hypothyroidism Incontinence in female Insomnia long term care pharmacist (current) use of systemic steroids Neurocardiogenic syncope Other reduction deformities of brain ([facility]) Pancreatitis ([facility]) Post menopausal problems Post menopausal syndrome Postural [...] secretion Disturbance of skin sensation 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[facility]) Encounter for gynecological examination (general) (routine) without abnormal findings Encounter for long-term (current) drug use GERD (gastroesophageal reflux disease) Herpes labialis Hydronephrosis Hyperreflexia Hypersomnia, unspecified Hypo-osmolality and hyponatremia Hypokalemia Hypomagnesemia Hyponatremia Hypothyroidism Incontinence in female Insomnia Insomnia, unspecified Irritable bowel syndrome with diarrhea Late effect of poisoning due to drug, medicinal or biological substance custodial (current) use of systemic steroids Memory loss Mononeuritis Neurocardiogenic syncope Neuropathy Nondependent abuse of drugs ([facility]) tobacco use disorder Obstructive sleep apnea Osteoporosis [...] nursing note reviewed. Exam conducted with a endocrinology specialist present. Vitals: Estimated body mass index is [...] Office Visit [facility] [address] [place] [address] Albino Judd MD [address] [place] [address] Scheduled Orders Name Type Priority Associated Diagnoses [...] documented as of this encounter Care Teams Slicing Machine Operator Relationship Specialty Start Date End Date Albino Judd MD [address] [place] [address] PCP - General Family Medicine 06/30/24 Albino Judd MD [address] [place] [address] PCP - Medical [employer] 08/29/24 11/28/99 Cristina Walter PA [address] [facility] [address] [place] [address] Physician Body Finisher Neurology 03/13/25 documented as of this encounter
--- OUTSIDE RECORDS SUMMARY | 2025-07-10 18:55 | XMS_ITS | Clinical Summary ---
Author Organization [facility] Address [address] [place] [address] Care Team Providers Care Mailing Section Clerk Name Role Phone Albino Judd MD Primary Care Provider [phone] Albino Judd MD Unavailable Cristina Walter Unavailable [...] moderate narrowing. 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 She [...] EDT Office Visit [facility] [address] [place] [address] Alice Reid PA Well woman exam with routine gynecological exam; H/O: hysterectomy; Breast cancer screening by mammogram; Screen for STD (sexually transmitted disease); Hormone disorder 07/10/2025 Abstract [facility] [address] [place] [address] [place] [address] Fer Gomez DO 07/10/2025 Telephone [facility] [address] [place] [address] [place] [address] Zarina Glover MA 07/10/2025 Bamboo flowsheet [facility]enn[facility] [address] [facility] [address] Alice Reid PA 07/06/2025 Patient Outreach [facility] [address] [place] [address] Marjorie Wiley RN 06/28/2025 Refill [facility] [address] [place] [address] Albino Judd MD Gastroesophageal reflux disease without esophagitis 06/27/2025 Refill [facility] [address] [place] [address] Anali Lennon MD Hypothyroidism, adult 05/29/2025 3:15 PM EDT Office Visit [facility] [address] [place] [address] Albino Judd MD Delusion (HCC) (Primary Dx); ADD (attention deficit disorder) without hyperactivity; Chronic bilateral low back pain with left-sided sciatica 05/29/2025 Bamboo flowsheet [facility] [address] [place] [address] Albino Judd MD 05/25/2025 Patient Outreach [address] [place] [address] Marjorie Wiley RN 05/18/2025 Refill [facility] [address] [place] [address] Albino Judd MD 05/09/2025 Patient Outreach [address] [place] [address] Josy Carney MA 05/08/2025 Telephone [facility] [address] [place] [address] Albino Judd MD 05/08/2025 Patient Outreach [address] [place] [address] Josy Carney MA 05/07/2025 Telephone [facility] [address] [place] [address] Albino Judd MD Referral 05/04/2025 Telephone [facility] [address] [place] [address] Albino Judd MD 04/17/2025 4:00 PM EDT Evaluation [facility] [address] [place] [address] Rigo Delgado, PT Cervical spinal stenosis (Primary Dx); Vertigo; Small fiber neuropathy; POTS (postural orthostatic tachycardia syndrome) 04/17/2025 Plan of Care Documentation [facility] [address] [place] [address] 04/17/2025 Bamboo flowsheet [facility] [address] [place] [address] Rigo Delgado, PT 04/17/2025 Travel from Last [...] any clubs o r organizations such as scientologist groups, unions, fraternal or athletic groups, or [...] care, and heating? Somewhat hard 06/29/2024 [facility] [place] of Occupat ional Health - Occupational Stress [...] any time in the past 12 m [facility], were you homeless or living in [...] EDT Office Visit [facility] [address] [place] [address] Albino Judd MD [address] [place] [address] Health Maintenance Due Date Last Done Comments CT Colonography 1970 Colonoscopy 1970 FIT-DNA 1970 FIT 1970 FOBT 1970 Sigmoidoscopy 1970 Influenza Vaccine (#1) 2025 12/16/2012 Mammogram 08/28/2025 [...] AM EDT THIS EXAM WAS PERFORMED AT [facility] 1970 [id number] EXAM: MAMM SCREENING BILATERAL W CAD, 08/25/2024 [...] MAMM 1 YR FDA Accredited Performing Facility: [facility] - Mammography/DEXA Imaging [address] [facility] [address] Procedure Note Radiology, Radiologist, MD - 08/28/2024 THIS EXAM WAS PERFORMED AT [facility] 1970 [id number] EXAM: MAMM SCREENING BILATERAL W CAD, 08/25/2024 [...] MAMM 1 YR FDA Accredited Performing Facility: [facility] - Mammography/DEXA Imaging [address] [facility] [address] Albino Judd MD IMG BI PROCEDURES Final Result from Last 3 Months or Most Recently Relevant to Health Maintenance Additional Health Concerns Active Problems Noted Date Diagnosed Date Patient on antidepressant monitoring plan 2024 Baseline PHQ-9 03/28/2025 Insurance [employer] Care Teams Mailing Section Clerk Relationship Specialty Start Date End Date Albino Judd MD [address] [place] [address] PCP - General Family Medicine 06/30/24 Albino Judd MD [address] [place] [address] PCP - Medical [place] Commercial 08/29/24 11/28/99 Cristina Walter PA [address] [facility] [address] [place] [address] Physician Upset Welding Machine Operator Neurology 03/13/25
--- OUTSIDE RECORDS SUMMARY | 2025-07-10 18:55 | XMS_ITS ---
Author Organization [facility] Address [address] [place] [address] Care Team Providers Care Mid Teacher Name Role Phone Albino Judd MD Primary Care Provider [phone] Albino Judd MD Unavailable Cristina Walter Unavailable [...]
--- OUTSIDE RECORDS SUMMARY | 2025-07-10 18:55 | XMS_ITS | Encounter Summary ---
Author Organization [facility] Address [address] [place] [address] Care Team Providers Care Station Worker Name Role Phone Albino Judd MD Primary Care Provider [phone] Marjorie Wiley RN Unavailable [phone] Albino Judd MD Unavailable Cristina Walter Unavailable Encounter Details Date Type Department Care Team (Late st Contact Info) Description 08/28/2024 Orders Only [facility] [address] [place] [address] Albino Judd MD [address] [place] [address] Social History Tobacco Use Types Packs/Day Years [...] week 06/29/2024 How often do you attend [facility] or gnosticist services? 1 to 4 times per year 06/29/2024 Do you belong to any clubs o r organizations such as episcopal groups, unions, fraternal or athletic groups, or [...] medical care, and heating? Somewhat hard 06/29/2024 [facility] of Occupat ional Health - Occupational [...] were you homeless or living in a skilled nursing (including now)? No 06/29/2024 Comments Unknown Sex [...] Office Visit [facility] [address] [place] [address] Albino Judd MD [address] [place] [address] documented as of this encounter Visit Diagnoses Not on filedocumented in this encounter Care Teams Station Worker Relationship Specialty Start Date End Date Albino Judd MD [address] [place] [address] PCP - General Family Medicine 06/30/24 Albino Judd MD [address] [place] [address] PCP - Medical [place] Commercial 08/29/24 11/28/99 Marjorie Wiley, LUCY [address] [place] [address] Registered Nurse Family Medicine 09/18/24 07/06/25 Cristina Walter PA [address] [place] [address] Physician Business Support Liaison Neurology 03/13/25 documented as of this encounter
--- OUTSIDE RECORDS SUMMARY | 2025-07-10 18:55 | XMS_ITS ---
Author Organization [facility] Address [address] [facility] [place] [address] Care Team Providers Care Sock Knitter Name Role Phone Albino Judd MD Primary Care Provider [phone] Albino Judd MD Unavailable Cristina Walter Unavailable Emergency Department Transitional Care Management (TCM) Status:Enrolled (Active) Start date:07/04/2025 Enrollment date:07/06/2025 Enrollment reason:Identified using hospital discharge data Overview Discharged from [facility] ER on 07/04. Please contact within 2 days of discharge for ERTOC and schedule a follow-up appointment if needed. Case Team Name Relationship Phone Marjorie Wiley RN(Responsible Staff) Registered Nurse [phone] Continued Care and Services Coordination
--- OUTSIDE RECORDS SUMMARY | 2025-07-10 18:55 | XMS_ITS | Clinical Summary ---
Author Organization [facility] Address [address] [facility], [address] [place] [address] Care Team Providers Care Airplane Woodworker Name Role Phone Albino Judd MD Primary [...] of Treatment [place] [address] [facility] Care Teams Airplane Woodworker Relationship Specialty Start Date End Date Albino Judd MD [address] [place] [address] PCP - General Family Medicine 03/25/18
--- OUTSIDE RECORDS SUMMARY | 2025-07-10 18:55 | XMS_ITS | Encounter Summary ---
Author Organization [facility] Address [address] [place] [address] Care Team Providers Care Pump Installation And Servicer Name Role Phone Albino Judd MD Primary Care Provider [phone] Albino Judd MD Primary Care Provider [phone] Marjorie Wiley RN Unavailable [phone] Albino Judd MD Unavailable Cristina Walter Unavailable Encounter Details Date Type Department Care Team (Late st Contact Info) Description 04/19/2023 Abstract [facility] [address] [address] Raymundo Fleming MD [address] [place] [address] Social History Tobacco Use Types [...] 07/31/2025 2:30 PM EDT [facility] [address] [place] [address] Albino Judd MD [address] [place] [address] documented as of this encounter Visit Diagnoses Not on filedocumented in this encounter Care Teams Pump Installation And Servicer Relationship Specialty Start Date End Date Albino Judd MD PCP - General Family Medicine 06/25/23 06/29/24 Albino Judd MD [address] [place] [address] PCP - General Family Medicine 06/30/24 Albino Judd MD [address] [place] [address] PCP - Medical [place] Commercial 08/29/24 11/28/99 Marjorie Wiley, RN [address] [place] [address] Registered Nurse Family Medicine 09/18/24 07/06/25 Cristina Walter PA [address] [place] [address] Physician [place] Drill Operator Neurology 03/13/25 documented as of this encounter
--- OUTSIDE RECORDS SUMMARY | 2025-07-10 18:55 | XMS_ITS | Encounter Summary ---
Author Organization [facility] Address [address] [place] [address] Care Team Providers Care Transport Technician Name Role Phone Albino Judd MD Primary Care Provider [phone] Albino Judd MD Unavailable Cristina Walter Unavailable Encounter Details Date Type Department Care Team (Late st Contact Info) Description 07/10/2025 Telephone [facility] Lizbeth [facility] [address] [place] [address] Zarina Glover MA [address] [place] [address] Social History Tobacco Use Types Packs/Day Years [...] How often do you attend chur or anabaptism services? 1 to 4 times per year 06/29/2024 Do you belong to any clubs o r organizations such as latter-day groups, unions, fraternal or athletic groups, or [...] any time in the past [address] [facility], were you homeless or living in a detention (including now)? No 06/29/2024 Comments No Sex [...] Office Visit [facility] [address] [place] [address] Albino Judd MD [address] [place] [address] documented as of this encounter Goals Goal [...] documented as of this encounter Care Teams Transport Technician Relationship Specialty Start Date End Date Albino Judd MD [address] [place] [address] PCP - General Family Medicine 06/30/24 Albino Judd MD [address] [place] [address] PCP - Medical [place] Commercial 08/29/24 11/28/99 Cristina Walter PA [address] [place] [address] Physician Corporate Development Manager Neurology 03/13/25 documented as of this encounter
--- OUTSIDE RECORDS SUMMARY | 2025-07-10 18:55 | XMS_ITS | Encounter Summary ---
Author Organization [facility] Address [address] [place] [address] Care Team Providers Care Fine Wire Drawer Name Role Phone Albino Judd MD Primary Care Provider [phone] Marjorie Wiley RN Unavailable [phone] Albino Judd MD Unavailable Cristina Walter Unavailable Encounter Details Date Type Department Care Team (Late st Contact Info) Description 07/06/2025 Patient Outreach [facility] [address] [place] [address] Marjorie Wiley, RN [address] [place] [address] Social History Tobacco Use Types [...] 06/29/2024 How often do you attend [facility] or catholic services? 1 to 4 times per year 06/29/2024 Do you belong to any clubs o r organizations such as islam groups, unions, fraternal or athletic groups, or [...] medical care, and heating? Somewhat hard 06/29/2024 [facility] of Occupat ional Health - Occupational [...] any time in the past 12 m [facility], were you homeless or living in a half-way (including now)? No 06/29/2024 Comments Unknown Sex [...] Pt reports having fu scheduled with uro, aircraft maintenance director and neuro. Will inform Dr Judd regarding k tabs. July 06, 2025 2:07 PM Marjorie Wiley RN called and requested most recent ER note be faxed to Dr Judd office. Flowsheet Row Patient Outreach from 07/06/2025 in [facility] with Marjorie Wiley RN Hospital Information ED, Hospital or Care Home Facility Discharge? ED Patient has been contacted within 2 days of being seen in the ED Yes Diagnosis POTS Discharge Date 07/04/25 Discharged To: Home Setting Discharge Hospital [facility] Engagement Admission Date 07/04/25 Medications Discharge [...] access to their discharge instructions? Yes [called [facility] and requested dc summbe faxed.] Nursing [...] 07/31/2025 2:30 PM EDT Office Visit [facility] [address] [place] [address] Albino Judd MD [address] [place] [address] documented as of this encounter Goals Goal [...] documented as of this encounter Care Teams Fine Wire Drawer Relationship Specialty Start Date End Date Albino Judd MD [address] [place] [address] PCP - General Family Medicine 06/30/24 Albino Judd MD [address] [place] [address] PCP - Medical [place] Commercial 08/29/24 11/28/99 Marjorie Wiley, RN [address] [place] [address] Registered Nurse Family Medicine 09/18/24 07/06/25 Cristina Walter PA [address] [facility] [address] [place] [address] Physician Knife Sharpener Neurology 03/13/25 documented as of this encounter
--- OUTSIDE RECORDS SUMMARY | 2025-07-10 18:55 | XMS_ITS | Encounter Summary ---
Author Organization [facility] Address [address] [place] [address] Care Team Providers Care Winemaker Name Role Phone Albino Judd MD Primary Care Provider [phone] Albino Judd MD Primary Care Provider [phone] Marjorie Wiley RN Unavailable [phone] Albino Judd MD Unavailable Cristina Walter Unavailable Encounter Details Date Type Department Care Team (Late st Contact Info) Description 04/13/2024 Orders Only [facility] [address] [place] [address] Albino Judd MD [address] [place] [address] Essential hypertension, benign Social History Tobacco Use [...] 2:30 PM EDT Office Visit [facility] [address] [place] [address] Albino Judd MD [address] [place] [address] documented as of this encounter Visit Diagnoses Diagnosis Essential hypertension, benign Essential hypertension, benign documented in this encounter Care Teams Winemaker Relationship Specialty Start Date End Date Albino Judd MD PCP - General Family Medicine 06/25/23 06/29/24 Albino Judd MD [address] [place] [address] PCP - General Family Medicine 06/30/24 Albino Judd MD [address] [place] [address] PCP - Medical [place] Commercial 08/29/24 11/28/99 Marjorie Wiley, LUCY [address] [place], [place] [address] Registered Nurse Family Medicine 09/18/24 07/06/25 Cristina Walter PA [address] [place] [address] Physician Secretary Specialist Neurology 03/13/25 documented as of this encounter
--- OUTSIDE RECORDS SUMMARY | 2025-07-10 18:55 | XMS_ITS | Encounter Summary ---
Author Organization [facility] Address [address] [place] [address] Care Team Providers Care Extermination Supervisor Name Role Phone Albino Judd MD Primary Care Provider [phone] Marjorie Wiley RN Unavailable [phone] Albino Judd MD Unavailable Cristina Walter Unavailable Reason for Visit * Reason Onset Date Comments Med Refill 06/28/2025 Encounter Details Date Type Department Care Team (Late st Contact Info) Description 06/28/2025 [facility] [address] [place] [address] Albino Judd MD [address] [place] [address] Gastroesophageal reflux disease without esophagitis Social History [...] often do you attend chur ch or restoration services? 1 to 4 times per year 06/29/2024 Do you belong to any clubs o r organizations such as shinto groups, unions, fraternal or athletic groups, or [...] medical care, and heating? Somewhat hard 06/29/2024 [facility] [place] of Occupat ional Health - Occupational Stress [...] 06/28/2025 9:47 AM EDT MEDICATION SENT [facility] documented in this encounter Plan of Treatment Upcoming Encounters Date Type Department Care Team (Late st Contact Info) Description 07/31/2025 2:30 PM EDT [facility] [address] [place] [address] Albino Judd MD [address] [place] [address] documented as of this encounter Goals Goal [...] documented as of this encounter Care Teams Extermination Supervisor Relationship Specialty Start Date End Date Albino Judd MD [address] [place] [address] PCP - General Family Medicine 06/30/24 Albino Judd MD [address] [place] [address] PCP - Medical [place] Commercial 08/29/24 11/28/99 Marjorie Wiley, LUCY [address] [place] [address] Registered Nurse Family Medicine 09/18/24 07/06/25 Cristina Walter PA [address] [place] [address] Physician Director Toxicology Neurology 03/13/25 documented as of this encounter
--- OUTSIDE RECORDS SUMMARY | 2025-07-10 18:55 | XMS_ITS | Encounter Summary ---
Author Organization [facility] Address [address] [place] [address] Care Team Providers Care Lubricating Specialist Name Role Phone Albino Judd MD Primary Care Provider [phone] Albino Judd MD Primary Care Provider [phone] Marjorie Wiley RN Unavailable [phone] Albino Judd MD Unavailable Cristina Walter Unavailable Encounter Details Date Type Department Care Team (Late st Contact Info) Description 04/18/2024 Abstract [facility] [address] [place] [address] Albino Judd MD [address] [place] [address] Social History Tobacco Use Types Packs/Day Years [...] 2:30 PM EDT Office Visit [facility] [address] [place] [address] Albino Judd MD [address] [place] [address] documented as of this encounter Visit Diagnoses Not on filedocumented in this encounter Care Teams Lubricating Specialist Relationship Specialty Start Date End Date Albino Judd MD PCP - General Family Medicine 06/25/23 06/29/24 Albino Judd MD [address] [place] [address] PCP - General Family Medicine 06/30/24 Albino Judd MD [address] [place] [address] PCP - Medical [place] [employer] 08/29/24 11/28/99 Marjorie Wiley, LUCY [address] [place] [address] Registered Nurse Family Medicine 09/18/24 07/06/25 Cristina Walter PA [address] [place] [address] Physician Evening Or Night Nurse Supervisor Neurology 03/13/25 documented as of this encounter
--- OUTSIDE RECORDS SUMMARY | 2025-07-10 18:55 | XMS_ITS | Encounter Summary ---
Author Organization [facility] Address [address] [place] [address] Care Team Providers Care Documentation Engineer Name Role Phone Albino Judd MD Primary Care Provider [phone] Albino Judd MD Primary Care Provider [phone] Marjorie Wiley RN Unavailable [phone] Albino Judd MD Unavailable Cristina Walter Unavailable Encounter Details Date Type Department Care Team (Late st Contact Info) Description 04/07/2024 Abstract [facility] [address] [place] [address] Albino Judd MD [address] [place] [address] Social History Tobacco Use Types Packs/Day Years [...] 07/31/2025 2:30 PM EDT Office Visit [facility] [address] [place] [address] Albino Judd MD [address] [place] [address] documented as of this encounter Visit Diagnoses Not on filedocumented in this encounter Care Teams Documentation Engineer Relationship Specialty Start Date End Date Albino Judd MD PCP - General Family Medicine 06/25/23 06/29/24 Albino Judd MD [address] [place] [address] PCP - General Family Medicine 06/30/24 Albino Judd MD [address] [place] [address] PCP - Medical [place] Commercial 08/29/24 11/28/99 Marjorie Wiley, LUCY [address] [place] [address] Registered Nurse Family Medicine 09/18/24 07/06/25 Cristina Walter PA [address] [place] [address] Physician Appraisal Coordinator Neurology 03/13/25 documented as of this encounter
--- OUTSIDE RECORDS SUMMARY | 2025-07-10 18:55 | XMS_ITS | Clinical Summary ---
Author Organization [facility] Address [address] [facility] [place] [phone] Phone Care Team Providers Care Sandal Parts Assembler Name Role Phone Unavailable Primary Care Provider [...]
--- OUTSIDE RECORDS SUMMARY | 2025-07-10 18:56 | XMS_ITS | Encounter Summary ---
Author Organization [employer] [facility] Address [id number] [address] [place] [address] Care Team Providers Care Leather Production Artisan Name Role Phone Unavailable Primary Care Provider Unavailabl e Reason for Referral * Diagnostic Imaging (Routine) - Closed Specialty Diagnoses / Procedures Referred By Contac t Referred To Contact Radiology Diagnoses Vertigo Procedures MR brain without contrast Kulwinder Tanner MD [address] [place] [address] [address] [place] [address] Phone: tel: fax: Referral ID Status Reason Start Date Expiration Date Visits Re quested Visits Authorized [id number] Closed 05/24/2025 05/24/2026 1 1 Encounter Details Date Type Department Care Team (Late st Contact Info) Description 05/23/2025 Orders Only [facility] [address] [place] [address] Kulwinder Tanner MD [address] [place] [address] [address] [place] [address] Vertigo (Primary Dx) Social History Tobacco [...]
--- OUTSIDE RECORDS SUMMARY | 2025-07-10 18:56 | XMS_ITS | Encounter Summary ---
Author Organization [facility] Address [facility] [place] [address] Care Team Providers Care Carpenter And Joiner Name Role Phone Albino Judd MD Primary Care Provider [phone] Source Comments In the event this information is protected by the Federal Confidentiality of Alcohol and Drug AbusePatient Records regulations: The Federal rules restrict any use of the information to criminally investigate or prosecute any alcohol or drug abuse patient.[facility] Encounter Details Date Type Department Care Team (Late st Contact Info) Description 02/03/2014 Patient Msg Medical Records [address] [place] [id number] Provider, Ccf RE: Request an Appointment Social [...] on filedocumented in this encounter Care Teams Carpenter And Joiner Relationship Specialty Start Date End Date Albino Judd MD PCP - General Internal Medicine 09/27/13 documented as of this encounter
--- OUTSIDE RECORDS SUMMARY | 2025-07-10 18:56 | XMS_ITS | Encounter Summary ---
Author Organization [employer] [facility] Address [id number] [address] [place] [address] Care Team Providers Care Securities Underwriter Name Role Phone Albino Judd MD Primary Care Provider [phone] Reason for Visit * Reason Onset Date Comments Referral/Hospital 03/25/2021 Encounter Details Date Type Department Care Team (Late st Contact Info) Description 03/25/2021 Telephone [facility] Neurology [address] [place] [address] Abimbola Mitchell Referral/Hospital Social History [...] called to schedule appointment from referral per [facility] visit. Referral dx: dizziness. Impressions: Abnormal [...] Abimbola Mitchell - 03/25/2021 11:47 AM EDT Product Lead called patient to schedule with Dr. Szymanski [...] documented as of this encounter Care Teams Securities Underwriter Relationship Specialty Start Date End Date Albino Judd MD PCP - General 04/05/14 05/03/25 documented as of this encounter
--- OUTSIDE RECORDS SUMMARY | 2025-07-10 18:56 | XMS_ITS | Encounter Summary ---
Author Organization [facility] Address [address] [place] [address] Care Team Providers Care Hand Molder Name Role Phone Albino Judd MD Primary Care Provider [phone] Albino Judd MD Unavailable Cristina Walter Unavailable Encounter Details Date Type Department Care Team (Late st Contact Info) Description 07/10/2025 Abstract [facility] [address] [place] [address] Fer Gomez DO [address] [facility] [address] [place] [id number] Social History Tobacco Use Types Packs/Day Years [...] week 06/29/2024 How often do you attend [facility] or [facility] services? 1 to 4 times per year 06/29/2024 Do you belong to any clubs o r organizations such as sikhism groups, unions, fraternal or athletic groups, or [...] medical care, and heating? Somewhat hard 06/29/2024 [facility] - Occupational [...] any time in the past 12 m [facility], were you homeless or living in a prison (including now)? No 06/29/2024 Comments No Sex [...] EDT Office Visit [facility] [address] [place] [address] Albino Judd MD [address] [place] [place] [address] documented as of this encounter Goals Goal Patient Goal Type Associated Problems Recent Progress Patient-Stated? Author Help patient manage antidepressant medication Care Plan Patient on antidepressant monitoring plan No NearhoodRoxanne Baseline PHQ-9 Care Plan Baseline PHQ-9 No NearhoodRoxanne documented as of this encounter Visit Diagnoses Not on filedocumented in this encounter Additional Health Concerns Active Problems Noted Date Diagnosed Date Patient on antidepressant monitoring plan 2024 Baseline PHQ-9 03/28/2025 documented as of this encounter Care Teams Hand Molder Relationship Specialty Start Date End Date Albino Judd MD [address] [place] [address] PCP - General Family Medicine 06/30/24 Albino Judd MD [address] [place] [address] PCP - Medical [employer] 08/29/24 11/28/99 Cristina Walter PA [address] [facility] [address] [place] [address] Physician Zookeeper Neurology 03/13/25 documented as of this encounter
--- OUTSIDE RECORDS SUMMARY | 2025-07-10 18:56 | XMS_ITS | Clinical Summary ---
Author Organization [facility] Address [address] [place] [address] Care Team Providers Care Jig Box Operator Name Role Phone Albino Judd MD Primary Care Provider [phone] Allergies Active Allergy Reactions Criticality Noted Date [...] is lower risk 7 12/12/2024 Data from: https://www.neighborhoodatlas.medicine.[facility].edu/. Last address used for calculation [...] [facility] PPO Care Teams Jig Box Operator Relationship Specialty Start Date End Date Albino Judd MD PCP - General Internal Medicine 09/27/13
--- OUTSIDE RECORDS SUMMARY | 2025-07-10 18:56 | XMS_ITS | Encounter Summary ---
Author Organization [facility] Address [facility] [place] [address] Care Team Providers Care Diamond Blender Name Role Phone Albino Judd MD Primary Care Provider [phone] Source Comments In the event this information is protected by the Federal Confidentiality of Alcohol and Drug AbusePatient Records regulations: The Federal rules restrict any use of the information to criminally investigate or prosecute any alcohol or drug abuse patient.[facility] Encounter Details Date Type Department Care Team (Late st Contact Info) Description 08/07/2014 Abstract Urology [address] [place] [address] Irais Gonzalez, SPLICER OPERATOR.MICROFILM OPERATOR [address] [place] [address] Social History Tobacco Use Types [...] on filedocumented in this encounter Care Teams Diamond Blender Relationship Specialty Start Date End Date Albino Judd MD PCP - General Internal Medicine 09/27/13 documented as of this encounter
--- OUTSIDE RECORDS SUMMARY | 2025-07-10 18:56 | XMS_ITS | Encounter Summary ---
Author Organization [facility] Address [id number] [address] [place] [address] Care Team Providers Care Telegrapher Agent Name Role Phone Albino Judd MD Primary Care Provider [phone] Encounter Details Date Type Department Care Team (Late st Contact Info) Description 11/11/2021 Orders Only [facility] [address] [place] [phone] Preethi Andrew, PA-C [address] [address] Social History Tobacco Use Types [...] documented as of this encounter Care Teams Telegrapher Agent Relationship Specialty Start Date End Date Albino Judd MD PCP - General 04/05/14 05/03/25 documented as of this encounter
--- OUTSIDE RECORDS SUMMARY | 2025-07-10 18:56 | XMS_ITS | Encounter Summary ---
Author Organization [facility] Address [address] [place] [address] Care Team Providers Care Viscosity Worker Name Role Phone Albino Judd MD Primary Care Provider [phone] Albino Judd MD Unavailable Cristina Walter Unavailable Encounter Details Date Type Department Care Team (Late st Contact Info) Description 07/10/2025 Bamboo flowsheet CARMINA Nieves [facility] [address] [facility] [address] [place] [phone] Alice Reid PA [address] [facility] [address] [place], [facility] Social History Tobacco Use Types Packs/Day [...] week 06/29/2024 How often do you attend [facility] or christian services? 1 to 4 times per year 06/29/2024 Do you belong to any clubs o r organizations such as rastafarian groups, unions, fraternal or athletic groups, or [...] [facility] - Occupational Stress Questionnaire Answer Date Recorded [...] any time in the past 12 m [facility], were you homeless or living in a jail (including now)? No 06/29/2024 Comments No Sex [...] [facility] [address] [place] [address] Albino Judd MD [address] [place] [address] documented as of this encounter Goals Goal Patient Goal Type Associated Problems Recent Progress Patient-Stated? Author Help patient manage antidepressant medication Care Plan Patient on antidepressant monitoring plan No Nearhood, Roxanne Baseline PHQ-9 Care Plan Baseline PHQ-9 No NearhoodRoaxnne documented as of this encounter Visit Diagnoses Not on filedocumented in this encounter Additional Health Concerns Active Problems Noted Date Diagnosed Date Patient on antidepressant monitoring plan 2024 Baseline PHQ-9 03/28/2025 documented as of this encounter Care Teams Viscosity Worker Relationship Specialty Start Date End Date Albino Judd MD [address] [place] [address] PCP - General Family Medicine 06/30/24 Albino Judd MD [address] [place] [address] PCP - Medical [place] [employer] 08/29/24 11/28/99 Cristina Walter PA [address] [place] [address] Physician Sports Photographer Neurology 03/13/25 documented as of this encounter
--- OUTSIDE RECORDS SUMMARY | 2025-07-10 18:56 | XMS_ITS | Encounter Summary ---
Author Organization [facility] Address [address] [place] [address] Care Team Providers Care Retail Coverage Merchandiser Name Role Phone Albino Judd MD Primary Care Provider [phone] Source Comments In the event this information is protected by the Federal Confidentiality of Alcohol and Drug AbusePatient Records regulations: The Federal rules restrict any use of the information to criminally investigate or prosecute any alcohol or drug abuse patient.[facility] Encounter Details Date Type Department Care Team (Late st Contact Info) Description 01/29/2025 Patient Msg Neurology [address] [place] [id number] Fish Vela MD [address] [place] [address] Migraine and diet handout Social [...] is lower risk 7 12/12/2024 Data from: https://www.neighborhoodatlas.medicine.[facility]/. Last address used for calculation Xander [...] on filedocumented in this encounter Care Teams Retail Coverage Merchandiser Relationship Specialty Start Date End Date Albino Judd MD PCP - General Internal Medicine 09/27/13 documented as of this encounter
--- OUTSIDE RECORDS SUMMARY | 2025-07-10 18:56 | XMS_ITS | Clinical Summary ---
Author Organization [email or web address]) tem Address [id number] [address] [place] [address] Care Team Providers Care Buildings And Grounds Director Name Role Phone Unavailable Primary Care Provider [...] (11/24/2021): Added automatically from request for surgery [id number] Nystagmus 08/26/2021 Intractable migraine with aura without [...] - 06/13/2025 11:59 PM EDT Hospital Encounter [facility] - MRI [address] [place] [address] Kulwinder Tanner MD Vertigo Discharge Disposition: Home 06/11/2025 Travel 05/23/2025 Orders Only [facility] [address] [place] [id number] Kulwinder Tanner MD Vertigo (Primary Dx) 05/22/2025 5:35 PM EDT - 05/22/2025 9:51 PM EDT Emergency [facility] - Emergency [address] [place] [phone] Kulwinder Easley MD Hallucinations (Primary Dx) Discharge Disposition: Home 05/22/2025 Travel 05/07/2025 4:27 PM EDT - 05/07/2025 7:21 PM EDT Emergency [facility] - Emergency [address] [place] [address] Elevated liver enzymes (Primary Dx); Sciatica of left side; Left hip pain; Dysuria; Hypokalemia Discharge Disposition: Home 05/07/2025 Travel 05/04/2025 6:55 PM EDT - 05/04/2025 7:55 PM EDT Emergency [facility] - Emergency [address] [place] [address] Darrell Oliveira MD Left hip pain (Primary [...] 06/13/2026 06/13/2025 Medical Devices Implanted Type Area Security Shift Manager Device Identifier Shelf Expiration Date Model / Serial / Lot Neuro Stimulator-05/29 Implanted:Qty: 1 on 05/29/2014 by Genaro Hawkins MD Neuro Stimulator Spine Lumbar [id number] / [id number] / Description:medtronic pain s timulator Spacer Spnl 14x6mm Coalition Mis 7d 12mm Ti Strl Lf - [id number] Implanted:Qty: 1 on 12/05/2021 by Kulwinder Tanner MD at [facility] Orthopedic Implant Globus [id number] / / Graft Bn Cllr Bn Mtrx Sm 1cc Vivigen Frmbl Rpl [id number] Rpl Special [id number] - [id number] Implanted:Qty: 1 on 12/05/2021 by Kulwinder Tanner MD at [facility] Other Implant Lifenet 11/04/2022 BL-1600-0 / / [id number] Screw Bn 12mm 3.6mm Slf Drl [facility] Ns - [id number] Implanted:Qty: 2 on 12/05/2021 by Kulwinder Tanner MD at [facility] Screw Globus [id number] / / Procedures [...] time period is included. POC Urine Specific [place] 1.010 1.010, 1.015, 1.020, 1.025 05/22/2025 9:03 PM EDT [facility] POC Urine Leukocyte Esterase Negative Negative 05/22/2025 9:03 PM EDT [facility] POC Urine Nitrite Negative Negative 05/22/2025 9:03 PM EDT [facility] POC Urine pH 5.5 5.0, 6.0, 6.5, 7.0, 7.5, 8.0, 8.5, 5.5 05/22/2025 9:03 PM EDT [facility] POC Urine Protein Negative Negative 05/22/2025 9:03 PM EDT [facility] POC Urine Glucose Negative Negative 05/22/2025 9:03 PM EDT [facility] POC Urine Ketones Negative Negative 05/22/2025 9:03 PM EDT [facility] POC Urine Urobilinogen 0.2 E.U./dL 05/22/2025 9:03 PM EDT [facility] POC Urine Bilirubin Negative Negative 05/22/2025 9:03 PM EDT [facility] POC Urine Blood/HGB Negative Negative 05/22/2025 9:03 PM EDT [facility] Urine 05/22/2025 9:10 PM EDT 05/22/2025 9:03 PM EDT us Kulwinder Easley MD POINT OF CARE TEST ORDERABLES Final Result Performing Organization Address City/[facility] Co de Phone Number [address] [place] [address], [place] * Extra Urine [place] (05/22/2025 9:01 PM EDT) Only the most recent of2 resultswithin the time period is included. Extra Tube Auto Resulted 05/22/2025 11:01 PM EDT [facility] Urine Urine specimen collection, clean catch / Unknown 05/22/2025 9:01 PM EDT 05/22/2025 9:08 PM EDT Ruthann Schmidt COMMUNICATION STUDIES PROFESSOR-TEST PREPARATION TUTOR URINE ORDERABLES Final Res ult Performing Organization Address [facility] de Phone Number [address] [place] [address], [place] * Extra Urine Culture (05/22/2025 9:01 PM EDT) Only the most recent of2 resultswithin the time period is included. Extra Tube Auto Resulted 05/22/2025 11:01 PM EDT [facility] Urine Urine specimen collection, clean catch / Unknown 05/22/2025 9:01 PM EDT 05/22/2025 9:08 PM EDT us Ruthann Schmidt COMMUNICATION STUDIES PROFESSOR-TEST PREPARATION TUTOR URINE ORDERABLES Final Res ult Performing Organization Address City/[facility] Co de Phone Number [address] [place] [address], [place] * Extra Urine (05/22/2025 9:01 PM EDT) Only the most recent of2 resultswithin the time period is included. Extra Tube Auto Resulted 05/22/2025 11:01 PM EDT [facility] Urine Urine specimen collection, clean catch / Unknown 05/22/2025 9:01 PM EDT 05/22/2025 9:08 PM EDT us Ruthann Schmidt COMMUNICATION STUDIES PROFESSOR-TEST PREPARATION TUTOR URINE ORDERABLES Final Res ult [address] [place] [address], [place] * (ABNORMAL) Drug Screen, Urine (05/22/2025 9:01 PM EDT) AMPHETAMINE/METHAM P Negative Negative 05/22/2025 9:58 PM EDT [facility] Comment:AMPH/METH screening cut off = 1000 ng/mL COCAINE METABOLITE Negative Negative 2024 9:58 PM EDT [facility] Comment:Cocaine screening cu t off value = 300 ng/mL ECSTASY Negative Negative 05/22/2025 9:58 PM EDT [facility] Comment:Ecstasy screening cu t off value = 500 ng/mL METHADONE Negative Negative 05/22/2025 9:58 PM EDT [facility] Comment:Methadone screening cut off value = 300 ng/mL. OPIATES Negative Negative 05/22/2025 9:58 PM EDT [facility] Comment: Opiates screening cut off value = 300 ng/mL This test is used for the detection of codeine, hydrocodone (>1000 ng/mL), morphine and hydromorphone (>900 ng/mL) in urine. OXYCODONE Positive(A) Negative 05/22/2025 9:58 PM EDT [facility] Comment: Oxycodone screening cut off value = 300 ng/mL This test is used for the detection of oxycodone and oxymorphone in urine. PHENCYCLIDINE Negative Negative 05/22/2025 9:58 PM EDT [facility] Comment:Phencyclidine screen ing cut off value = 25 ng/mL CANNABINOIDS Positive(A) Negative 05/22/2025 9:58 PM EDT [facility] Comment:Cannabinoids/THC scr eening cut off value = 50 ng/mL Urine Barbiturates Negative Negative 2024 9:58 PM EDT [facility] Comment:Barbiturates screeni ng cut off value = 200 ng/mL BENZODIAZEPINES Negative Negative 9:58 PM EDT [facility] Comment:Benzodiazepines scre ening cut off value = 200 ng/mL Urine 05/22/2025 9:01 PM EDT 05/22/2025 9:08 PM EDT Narrative [facility] - 05/22/2025 9:58 PM EDT Confirmation available upon request. us Ruthann Schmidt COMMUNICATION STUDIES PROFESSOR-TEST PREPARATION TUTOR URINE ORDERABLES Final Res ult [address] [place] [address], [place] * Troponin I, High Sensitivity 1 Hour (05/22/2025 7:42 PM EDT) TROPONIN I, HIGH SENSITIVITY 8 <16 ng/L 05/22/2025 8:30 PM EDT [facility] Blood Venous blood / Unknown 05/22/2025 7:42 PM EDT 05/22/2025 7:57 PM EDT us Ruthann Schmidt COMMUNICATION STUDIES PROFESSOR-TEST PREPARATION TUTOR LAB BLOOD ORDERABLES Final Result [address] [place] [address], [place] * Troponin I, High Sensitivity 0 Hour (05/22/2025 6:16 PM EDT) Pathologist [facility] [place] TROPONIN I, HIGH SENSITIVITY 7 <16 ng/L 05/22/2025 7:07 PM EDT [facility] Blood Venous blood / Unknown 05/22/2025 6:16 PM EDT 05/22/2025 6:26 PM EDT us Ruthann Schmidt COMMUNICATION STUDIES PROFESSOR-TEST PREPARATION TUTOR LAB BLOOD ORDERABLES Final Result [facility] [address] [place] [address], [place] * (ABNORMAL) CBC auto differential (05/22/2025 6:16 PM EDT) Only the most recent of2 resultswithin the time period is included. [facility] WBC 12.0(H) 4 - 11 x10E9/L 05/22/2025 6:40 PM EDT [facility] RBC Count 4.56 3.8 - 5.2 X10E12/L 05/22/2025 6:40 PM EDT [facility] Hemoglobin 15.0 11.7 - 15.5 g/dL 05/22/2025 6:40 PM EDT [facility] Hematocrit 42.6 35 - 47 % 05/22/2025 6:40 PM EDT [facility] MCV 93 80 - 100 fL 05/22/2025 6:40 PM EDT [facility] MCH 32.8 27 - 34 pg 05/22/2025 6:40 PM EDT [facility] MCHC 35.1 32 - 36 g/dL 05/22/2025 6:40 PM EDT [facility] RDW 12.5 11.5 - 15 % 05/22/2025 6:40 PM EDT [facility] Platelet Count 315 150 - 450 X10E9/L 05/22/2025 6:40 PM EDT [facility] MPV 9.1 7 - 12 fL 05/22/2025 6:40 PM EDT [facility] Neutrophils % 60.2 % 05/22/2025 6:40 PM EDT [facility] Lymphocytes % 30.1 % 05/22/2025 6:40 PM EDT [facility] Monocytes % 8.6 % 05/22/2025 6:40 PM EDT [facility] Eosinophils % 0.3 % 05/22/2025 6:40 PM EDT [facility] Basophils % 0.8 % 05/22/2025 6:40 PM EDT [facility] Neutrophils Absolute (A) 7.2(H) 1.5 - 6.6 10*3/uL 05/22/2025 6:40 PM EDT [facility] Lymphocytes Absolute 3.6(H) 1.0 - 3.5 10*3/uL 05/22/2025 6:40 PM EDT [facility] Monocytes Absolute 1.0(H) 0.0 - 0.9 10*3/uL 05/22/2025 6:40 PM EDT [facility] Eosinophils Absolute 0.0 0.0 - 0.4 10*3/uL 05/22/2025 6:40 PM EDT [facility] Basophils Absolute 0.1 0.0 - 0.2 10*3/uL 05/22/2025 6:40 PM EDT [facility] Differential Type AUTOMATED DIFFERENTIAL 05/22/2025 6:40 PM EDT [facility] Blood Venous blood / Unknown 05/22/2025 6:16 PM EDT 05/22/2025 6:26 PM EDT us Ruthann Schmidt COMMUNICATION STUDIES PROFESSOR-TEST PREPARATION TUTOR LAB BLOOD ORDERABLES Final Result [facility] [address] [place] [address], [place] * Magnesium (05/22/2025 6:16 PM EDT) Only the most recent of2 resultswithin the time period is included. MAGNESIUM 1.8 1.8 - 2.6 mg/dL 05/22/2025 7:03 PM EDT [facility] Blood Venous blood / Unknown 05/22/2025 6:16 PM EDT 05/22/2025 6:26 PM EDT us Ruthann Schmidt COMMUNICATION STUDIES PROFESSOR-TEST PREPARATION TUTOR LAB BLOOD ORDERABLES Final Result Performing Organization Address City/[facility] Co de Phone Number [address] [place] [address], [place] * Ethanol (05/22/2025 6:16 PM EDT) ETHANOL <0.010 <=0.080 g/dL 05/22/2025 7:03 PM EDT [facility] Comment: This report is intended for use in clinical monitoring or management of patients. Blood Venous blood / Unknown 05/22/2025 6:16 PM EDT 05/22/2025 6:26 PM EDT us Ruthann Schmidt APRN-TEST PREPARATION TUTOR LAB BLOOD ORDERABLES Final Result Performing Organization Address [facility] de Phone Number [address] [place] [address], [place] * (ABNORMAL) Acetaminophen level (05/22/2025 6:16 PM EDT) ACETAMINOPHEN 5.2(L) 10.0 - 30.0 ug/mL 05/22/2025 7:03 PM EDT [facility] Blood Venous blood / Unknown 05/22/2025 6:16 PM EDT 05/22/2025 6:26 PM EDT Narrative [facility] - 05/22/2025 7:03 PM EDT Reference ranges are for therapeutic limits. us Ruthann Schmidt COMMUNICATION STUDIES PROFESSOR-TEST PREPARATION TUTOR LAB BLOOD ORDERABLES Final Result [facility] [address] [address], [place] * Salicylate level (05/22/2025 6:16 PM EDT) SALICYLATE <4.0 2.0 - 25.0 mg/dL 05/22/2025 7:03 PM EDT [facility] Blood Venous blood / Unknown 05/22/2025 6:16 PM EDT 05/22/2025 6:26 PM EDT Narrative [facility] - 05/22/2025 7:03 PM EDT Reference ranges are for therapeutic limits. us Ruthann Schmidt COMMUNICATION STUDIES PROFESSOR-TEST PREPARATION TUTOR LAB BLOOD ORDERABLES Final Result [address] [place] [address], [place] * (ABNORMAL) Comprehensive metabolic panel (05/22/2025 6:16 PM EDT) Only the most recent of2 resultswithin the time period is included. Pathologist [facility] [place] SODIUM 134 134 - 146 mmol/L 05/22/2025 7:03 PM EDT [facility] POTASSIUM 2.9(L) 3.5 - 5.0 mmol/L 05/22/2025 7:03 PM EDT [facility] CHLORIDE 101 98 - 109 mmol/L 05/22/2025 7:03 PM EDT [facility] CARBON DIOXIDE 23 22 - 32 mmol/L 05/22/2025 7:03 PM EDT [facility] ANION GAP 10 5 - 15 mmol/L 05/22/2025 7:03 PM EDT [facility] BLOOD UREA NITROGEN 13 5 - 23 mg/dL 05/22/2025 7:03 PM EDT [facility] CREATININE 0.83 0.40 - 1.00 mg/dL 05/22/2025 7:03 PM EDT [facility] Comment:METHOD TRACEABLE TO IDMS STANDARD GLUCOSE 181(H) 65 - 99 mg/dL 05/22/2025 7:03 PM EDT [facility] CALCIUM 9.1 8.5 - 10.5 mg/dL 05/22/2025 7:03 PM EDT [facility] TOTAL PROTEIN 7.0 6.0 - 8.0 g/dL 05/22/2025 7:03 PM EDT [facility] ALBUMIN 4.4 3.2 - 5.3 g/dL 05/22/2025 7:03 PM EDT [facility] ALKALINE PHOSPHATASE 112 39 - 130 U/L 05/22/2025 7:03 PM EDT [facility] AST 36 <=41 U/L 05/22/2025 7:03 PM EDT [facility] ALT 34(H) <=31 U/L 05/22/2025 7:03 PM EDT [facility] BILIRUBIN,TOTAL 0.9 0.3 - 1.2 mg/dL 05/22/2025 7:03 PM EDT [facility] EGFR Non-Race Dependent 83 >=60 ml/min/1.7 3sq.m 05/22/2025 7:03 PM EDT [facility] Comment: eGFR not reported due to non-numeric value for Creatinine. Reported eGFR is based on the CKD-EPI 2020 equation that does not use a race coefficient. Blood Venous blood / Unknown 05/22/2025 6:16 PM EDT 05/22/2025 6:26 PM EDT us Ruthann Schmidt COMMUNICATION STUDIES PROFESSOR-TEST PREPARATION TUTOR LAB BLOOD ORDERABLES Final Result [facility] [address] [place] [address], * CT lumbar spine without contrast (05/07/2025 [...] on 05/07/2025 5:39 PM us Ruthann Schmidt COMMUNICATION STUDIES PROFESSOR-TEST PREPARATION TUTOR IMG CT ORDERABLES Final Re sult * Light Blue Top (05/07/2025 5:06 PM EDT) Extra Tube Auto Resulted 05/07/2025 7:01 PM EDT [facility] Blood Venous blood / Unknown 05/07/2025 5:06 PM EDT 05/07/2025 5:11 PM EDT us Ruthann Schmidt COMMUNICATION STUDIES PROFESSOR-TEST PREPARATION TUTOR LAB BLOOD ORDERABLES Final Result [facility] [address] [place] [address], [place] * X-ray hip left 2-3 views [...] Last 3 Months Insurance [employer] [place] Member Subscriber Plan / Payer (Ef fective 2024-Present) Name:Tori Soriano Guillermo Relation to Subscriber:Spouse Name:Bo Virgilio Allen Date of :1966 Address: [facility] [place] [address] Payer ID:Not on file Type:Not on file Address: [address] [place] [id number] MEDICAID [place] Advance Directives * Full Code (Latest Code Status on File) Date Activated Date Inactivated Comments 07/12/2017 10:09 AM 07/12/2017 3:51 PM
--- OUTSIDE RECORDS SUMMARY | 2025-07-10 18:56 | XMS_ITS | Encounter Summary ---
Author Organization [employer] [facility] tem Address [id number] [address] [place] [address] Care Team Providers Care Dividing Machine Operator Helper Name Role Phone lAbino Judd MD Primary Care Provider [phone] Encounter Details Date Type Department Care Team (Late st Contact Info) Description 06/30/2021 Telephone [facility] [address] [place] [address] Tammie Schmidt Social History Tobacco [...] documented as of this encounter Care Teams Dividing Machine Operator Helper Relationship Specialty Start Date End Date Albino Judd MD PCP - General 04/05/14 05/03/25 documented as of this encounter
--- OUTSIDE RECORDS SUMMARY | 2025-07-10 18:56 | XMS_ITS | Encounter Summary ---
Author Organization [employer] [facility] tem Address [id number] [address] [place] [address] Care Team Providers Care Electric Golf Cart Repairer Name Role Phone Albino Judd MD Primary Care Provider [phone] Encounter Details Date Type Department Care Team (Late st Contact Info) Description 08/26/2017 Telephone [facility] Th[facility] [address] [place] [address] [address] [place] [address] Imelda Mukherjee LPN Social History [...] documented as of this encounter Care Teams Electric Golf Cart Repairer Relationship Specialty Start Date End Date Albino Judd MD PCP - General 04/05/14 05/03/25 documented as of this encounter
== END 2025-07-10 18:52 | disposition home or self-care (01) ==
LOC: LAB 18:51
PROVIDERS: PCP Family Medicine; Visit Provider Physician Assistant
DX: Z01.419 Encounter for gynecological examination (general) (routine) without abnormal findings (principal)
CPT/HCPCS: 87624; 88175